=== PATIENT | female | born 1975 | race Caucasian/White ===

== ENCOUNTER 2019-10-29 19:38 | Emergency (ER) | payer MEDICARE, SELFPAY ==
[2019-10-29 19:47] VITALS: BP 129/89; PULSE 100; RESP 24; TEMP 36.8; O2SAT 96; BMI 22.8
--- NOTE | 2019-10-29 19:52 | ECG_ITS ---
[facility] Test Date: 2019-10-29 Pat Name: Jazmín Shaw Department: Room: Gender: Female President & Founder: : 1975 Requested By: Chelsea Chavez Order Number: [id number] Martinez MD: Amrita Law M.D. Measurements Intervals [place] Rate: 80 P: 84 IL: 129 QRS: 90 QRSD: 77 T: 73 QT: 354 QTc: 409 Interpretive Statements SINUS RHYTHM Compared to ECG 12/21/2016 13:46:17 No significant changes Electronically Signed On 10-30-2019 15:38:29 CDT by Amrita Law M.D. [id number]
--- NOTE | 2019-10-29 19:52 | XRR_ITS ---
PROCEDURE INFORMATION: Exam: XR Chest, 1 View Exam date and time: 10/29/2019 8:13 PM Age: 44 years old Clinical indication: Shortness of breath; Patient HX: C/O dyspnea; Wheezing). HX of copd; Emphysema TECHNIQUE: Imaging protocol: XR of the chest Views: 1 view. COMPARISON: CR Chest 2 views* [id number] 10/12/2016 1:08 PM FINDINGS: Lungs: COPD and interstitial prominence. Pleural space: No pleural effusion. Heart/Mediastinum: No cardiomegaly. Bones/joints: Unremarkable. XR/XR chest 1V portable [id number] IMPRESSION: COPD and interstitial prominence.
--- NOTE | 2019-10-29 19:53 | W.ED.SOB ---
HPI - SOB/Dyspnea General: Chief Complaint: Shortness of Breath/Dyspnea Stated Complaint: sob Time Seen by Provider: 10/29/19 19:47 Source: patient Mode of arrival: ambulatory Limitations: no limitations History of Present Illness: HPI Narrative: Jazmín is a nice 44-year-old female who comes in complaining of shortness of breath. She states she has a history of COPD but moved here 7 days ago from [place] and does not have any of her medications. She is also complaining of not having her chronic pain medication. She denies any chest pain. She denies any fevers. Patient states she just cannot quite seem to get her breath and that heat is not helping. She denies any other complaints or concerns but is wanting to help get established here in [place]. Associated symptoms: Deny abdominal pain, chest congestion, chest pain, diaphoresis, dizziness, extremity pain, fever(s), hemoptysis, lightheadedness, nausea, orthopnea, palpitations, syncope or vomiting Review of Systems Const: Denies: fever(s), chills, body aches, fatigue, malaise or diaphoresis Eyes: Denies: change in vision, blurry vision, blind spots, photophobia, eye discharge or eye redness ENMT: Denies: throat pain, odynophagia, hoarseness, swelling of lips/tongue, oral sores, ear or mastoid pain, ear discharge, change in hearing or nasal discharge Card: Denies: chest pain, palpitations, irregular heart rhythm, edema, lightheadedness, syncope, pre-syncope, dyspnea on exertion or orthopnea Resp: Reports: dyspnea and wheezing; Denies: productive cough, non-productive cough, hemoptysis or chest congestion GI: Denies: abdominal pain, nausea, vomiting, hematemesis, coffee ground emesis, heartburn, diarrhea, constipation, GI cramping, hematochezia or melena : Denies: flank pain, dysuria, urinary frequency, urinary urgency or hematuria Musc: Denies: neck pain, back pain, extremity pain, extremity swelling, joint pain, joint swelling, joint redness, joint warmth or joint stiffness Skin/Breast: Denies: rash, pruritus, erythema, skin tenderness or jaundice Neuro: Denies: headache(s), numbness in extremities, weakness in extremities, sensory changes, lack of coordination, difficulty walking, dizziness, vertigo, confusion, Slurred speech present or seizure-like activity Apolinar/Lymph: Denies: easy bruising, easy bleeding, petechiae, purpura or enlarged lymph nodes All/Imm: Denies: urticaria, throat swelling, tongue swelling, facial swelling or acute wheezing PFSH ED PFSH: Medical History (Updated 10/29/19 @ 23:12 by Chelsea Cox) Chronic neck pain COPD (chronic obstructive pulmonary disease) Migraines Social History (Updated 10/29/19 @ 19:53 by Alonzo Cedillo RN) Smoking and tobacco status: current every day smoker cigarettes Physical Exam Const: COMMON NORMALS: no acute distress, patient oriented x3, no limitations, healthy appearing and well nourished GENERAL APPEARANCE: cooperative, well kempt and well developed HENMT: COMMON NORMALS: normocephalic, atraumatic, external ears normal, EAC's normal and Normal external nose present HEAD & SCALP: normal to inspection, normocephalic and atraumatic FACE & SINUS: normal facial exam and face symmetric NOSE: Normal external nose present and Normal nares present EXTERNAL EAR: Yes external ears normal EXTERNAL AUDITORY CANAL: EAC's normal MOUTH: Normal oral and palatal mucosa present, lip normal and tongue normal Eye: COMMON NORMALS: Equal, round and reactive pupils present and conjunctivae normal GENERAL EYE: appearance normal, both eyes and all related structures ALIGNMENT: Yes alignment normal PERIORBITAL: periorbital findings normal EYELID: eyelids normal CONJUNCTIVA: Yes conjunctivae normal SCLERA: sclerae normal PUPIL: Yes Equal, round and reactive pupils present Neck/C-Spine: COMMON NORMALS: full ROM, no lymphadenopathy, supple, no meningeal signs and no JVD GENERAL: Yes normal visual inspection and Yes trachea midline Chest: COMMONS NORMALS: normal inspection of the chest and normal palpation of entire chest wall Resp: COMMON NORMALS: No retractions and No use of accessory muscles EFFORT & INSPECTION: Yes able to speak in complete sentences, Yes symmetric chest movement and Yes tachypneic AUSCULTATION: no crackles, no rales, no rhonchi and wheezes Cardio: COMMON NORMALS: no JVD, regular rate, regular rhythm, S1 normal heart sound present and S2 normal heart sound present RATE: regular rate RHYTHM: regular rhythm HEART SOUNDS: S1 normal heart sound present, S2 normal heart sound present, no click, no gallops, no murmurs, no rubs and abnormal split S2 GI: COMMON NORMALS: Soft to palpation and No hepatosplenomegaly present PALPATION: Yes Soft to palpation, No Tenderness to palpation present (GI), No Guarding due to palpation present (GI), No Rigid due to palpation, Yes No hepatosplenomegaly present, No Hernia present, No Palpable mass present and No Pulsatile mass present : COMMON NORMALS: Yes no CVA tenderness BLADDER/KIDNEY EXAM: Yes no CVA tenderness EXTERNAL FEMALE EXAM: No Hernia present Back/Pelvis: COMMON NORMALS: no CVA tenderness, thoracic and lumbar spine normal to inspection, no thoracic nor lumbar tenderness and thoraco-lumbar ROM normal Extremity: COMMON NORMALS: normal to inspection, full ROM, capillary refill normal, no joint enlargement, no clubbing, cyanosis or edema and no calf tenderness Neuro: COMMON NORMALS: patient oriented x3, CN's II-XII intact bilaterally, moves all extremities, no focal motor deficits and no sensory deficits noted MENINGEAL SIGNS: Yes no meningeal signs SPEECH: speech normal Psych: COMMON NORMALS: mental status grossly normal, Normal thought process present, cooperative, normal affect, speech normal and activity/motor behavior normal APPEARANCE: Yes well kempt SPEECH: Yes normal speech THOUGHT PROCESS: Normal thought process present Skin: COMMON NORMALS: no rashes or lesions noted, turgor normal, no jaundice, no petechiae and no mottling GENERAL SKIN EXAM: no rashes or lesions noted and turgor normal Course Vital Signs: Vital signs: Vital Signs Temperature 98.3 F 10/29/19 19:47 Pulse Rate 79 10/29/19 21:10 Respiratory Rate 22 H 10/29/19 20:55 Blood Pressure 131/92 10/29/19 22:02 Pulse Oximetry 92 10/29/19 22:02 MDM - SOB/Dyspnea MDM Narrative: Medical decision making narrative: The case was reviewed in its entirety with Dr. Rosales. He does not believe the patient qualifies or needs home supplemental oxygen. He recommends treating with steroids, antibiotics and he was happy to see the patient in follow-up. I reviewed this with the patient and she is in agreement. This time there is no sign of respiratory distress and the patient is doing much better and is ready for discharge. I see no sign of acute cardiac abnormality, there is no pneumonia on x-ray there is no sign of pulmonary embolism. Lab Data: Labs: Lab Results 10/29/19 10/29/19 10/29/19 Range/Units 20:17 20:17 20:17 WBC 6.7 (4.0-10.0) 10^3/ uL RBC 4.43 (4.1-5.3) 10^6/u L Hgb 14.4 (11.5-15.3) g/dL Hct 43.7 (37.0-47.0) % MCV 98.6 (81-99) fL MCH 32.5 (28.0-34.0) pg MCHC 33.0 (30.0-36.0) g/dL RDW 13.6 (12.1-15.1) % Plt Count 262 (130-400) 10^3/c mm MPV 10.3 (7.4-10.4) fL Neut % (Auto) 39.7 % Lymph % (Auto) 51.2 % [place] % (Auto) 6.3 % Eos % (Auto) 2.0 % Baso % (Auto) 0.6 % Neut # (Auto) 2.65 (1.8-7.7) 10^3/u L Lymph # (Auto) 3.4 (0.8-4.8) 10^3/u L [place] # (Auto) 0.4 (0.2-0.9) 10^3/u L Eos # (Auto) 0.1 (0.0-0.8) 10^3/u L Baso # (Auto) 0.0 (0.0-0.1) 10^3/u L Nucleated RBC % (a uto) 0 % Nucleated RBCs # 0.0 /100WBC D-Dimer 0.96 H (0-0.59) ug/mIFE U Specimen Type Sample Site ABG pH (7.35-7.45) ABG pCO2 (35-45) mmHg ABG pO2 (80.0-100.0) mmH g ABG HCO3 (22-26) mmol/L ABG Base Excess (-2.0-2.0) mmol/ L Sp Test Hematocrit (37-47) % O2 Delivery Device O2 Liters/Min % Process Steward ID Sodium 136 (136-145) mmol/L Potassium 4.0 (3.5-5.1) mmol/L Chloride 103 (98-107) mmol/L Carbon Dioxide 22 (22-29) mmol/L Anion Gap 15.0 (5-19) BUN 8 (6-20) mg/dL Creatinine 0.7 (0.5-0.9) mg/dL GFR Calculation 90.1 (90-130) mL/min Glucose 104 (65-115) mg/dL Calculated Osmolal ity 278 L (285-295) mOsm/k g Calcium 9.4 (8.5-10.5) mg/dL Magnesium 2.1 (1.7-2.3) mg/dL Total Bilirubin 0.2 (0.15-1.2) mg/dL AST 17 (0-32) U/L ALT 11 (0-33) U/L Alkaline Phosphata se 96 (35-105) IU/L NT-Pro-B Natriuret Pep 57 (0-125) pg/mL Total Protein 7.2 (6.6-8.7) g/dL Albumin 4.5 (3.5-5.2) g/dL Globulin 2.7 (1.3-4.6) g/dL Urine Color (Yellow) Urine Appearance (CLEAR) Urine pH (5-7) Ur Specific Gravit y (1.005-1.030) Urine Protein (Negative) Urine Glucose (UA) (Normal) Urine Ketones (Negative) Urine Blood (Negative) Urine Nitrate (Negative) Urine Bilirubin (NEGATIVE) Urine Urobilinogen (Negative) mg/dL Ur Leukocyte Emelyn ase (Negative) Urine RBC (0-2) /hpf Urine WBC (0-5) /hpf Ur Squamous Epith Cells (0-5) Ur Transition Epit h Cell /hpf Urine Bacteria (NONE) 10/29/19 10/29/19 Range/Units 21:02 21:35 WBC (4.0-10.0) 10^3/ uL RBC (4.1-5.3) 10^6/u L Hgb (11.5-15.3) g/dL Hct (37.0-47.0) % MCV (81-99) fL MCH (28.0-34.0) pg MCHC (30.0-36.0) g/dL RDW (12.1-15.1) % Plt Count (130-400) 10^3/c mm MPV (7.4-10.4) fL Neut % (Auto) % Lymph % (Auto) % [place] % (Auto) % Eos % (Auto) % Baso % (Auto) % Neut # (Auto) (1.8-7.7) 10^3/u L Lymph # (Auto) (0.8-4.8) 10^3/u L [place] # (Auto) (0.2-0.9) 10^3/u L Eos # (Auto) (0.0-0.8) 10^3/u L Baso # (Auto) (0.0-0.1) 10^3/u L Nucleated RBC % (a uto) % Nucleated RBCs # /100WBC D-Dimer (0-0.59) ug/mIFE U Specimen Type Arterial Sample Site Brachial, left ABG pH 7.47 H (7.35-7.45) ABG pCO2 28.2 L (35-45) mmHg ABG pO2 136.0 H (80.0-100.0) mmH g ABG HCO3 20.4 L (22-26) mmol/L ABG Base Excess -2.0 (-2.0-2.0) mmol/ L Sp Test N/a Hematocrit 46.1 (37-47) % O2 Delivery Device Nc O2 Liters/Min 2.0 % Process Steward ID harkr Sodium (136-145) mmol/L Potassium (3.5-5.1) mmol/L Chloride (98-107) mmol/L Carbon Dioxide (22-29) mmol/L Anion Gap (5-19) BUN (6-20) mg/dL Creatinine (0.5-0.9) mg/dL GFR Calculation (90-130) mL/min Glucose (65-115) mg/dL Calculated Osmolal ity (285-295) mOsm/k g Calcium (8.5-10.5) mg/dL Magnesium (1.7-2.3) mg/dL Total Bilirubin (0.15-1.2) mg/dL AST (0-32) U/L ALT (0-33) U/L Alkaline Phosphata se (35-105) IU/L NT-Pro-B Natriuret Pep (0-125) pg/mL Total Protein (6.6-8.7) g/dL Albumin (3.5-5.2) g/dL Globulin (1.3-4.6) g/dL Urine Color Yellow (Yellow) Urine Appearance Clear (CLEAR) Urine pH 7 (5-7) Ur Specific Gravit y 1.010 (1.005-1.030) Urine Protein Neg (Negative) Urine Glucose (UA) Norm (Normal) Urine Ketones Negative (Negative) Urine Blood Neg (Negative) Urine Nitrate Negative (Negative) Urine Bilirubin Neg (NEGATIVE) Urine Urobilinogen Norm (Negative) mg/dL Ur Leukocyte Emelyn ase Negative (Negative) Urine RBC 0-4 H (0-2) /hpf Urine WBC None (0-5) /hpf Ur Squamous Epith Cells 0-4 H (0-5) Ur Transition Epit h Cell None /hpf Urine Bacteria None (NONE) Imaging Data^: CTA Chest: Radiologist's impression: [place] [address] CT Scan Report Signed Patient: Jazmín Shaw Unit #: [id number] : 1975 Age/Sex: 44 / F ADM Date: 10/29/19 Loc: ER Room/Bed: Attending Dr: Ordering Provider/Ordering MD: Chelsea Cox DO Date of Service: 10/29/19 Procedure(s): CT angio chest PE protcl [id number] Accession Number(s): [id number] Report Number: [id number] PROCEDURE INFORMATION: Exam: CT Angiography Chest With Contrast Exam date and time: 10/29/2019 10:27 PM Age: 44 years old Clinical indication: Shortness of breath; Additional info: Positive d-dimer, dyspnea TECHNIQUE: Imaging protocol: Computed tomographic angiography of the chest with intravenous contrast. 3D rendering: MIP and/or 3D reconstructed images were created by the technologist. Radiation optimization: All CT scans at this facility use at least one of these dose optimization techniques: automated exposure control; mA and/or kV adjustment per patient size (includes targeted exams where dose is matched to clinical indication); or iterative reconstruction. Contrast material: OMNI 350; Contrast volume: 78 ml; Contrast route: INTRAVENOUS (IV); COMPARISON: CR XR chest 1V portable [id number] 10/29/2019 8:02 PM RADIATION DOSE METRICS: Total DLP (mGy-cm): 436.91 FINDINGS: Pulmonary arteries: Normal. No pulmonary emboli. Aorta: Unremarkable. No aortic aneurysm. No aortic dissection. Lungs: Severe centrilobular emphysema. No consolidation. Pleural space: Unremarkable. No pneumothorax. No pleural effusion. Heart: Unremarkable. No cardiomegaly. No pericardial effusion. Lymph nodes: Unremarkable. No enlarged lymph nodes. Gallbladder and bile ducts: Cholecystectomy. Bones/joints: Unremarkable. No acute fracture. Soft tissues: Unremarkable. CT/CT angio chest PE protcl [id number] IMPRESSION: 1. No evidence for pulmonary embolus. 2. Severe emphysema. Radiation Dose CTDIVOL = (mGy): DLP = 436.91 (mGy-cm) Dictated By: Leighton Rodrigez Signed By: Leighton Rodrigez Signed Date/Time: 10/29/192299 DD/ 58 EKG Data^: EKG 1: Attestation: I personally reviewed and interpreted this EKG as follows: EKG Interpretation Date: 10/29/19 EKG interpretation time: 20:05 Interpretation: Normal sinus rhythm at 80 beats a minute, no blocks, normal intervals, nonspecific ST-T wave changes. Discharge Plan Discharge Patient Disposition: Home, Self-Care Clinical Impression: Acute exacerbation of chronic obstructive airways disease Condition: Stable Prescriptions: New prednisone 10 mg tablet 20 mg PO BID 5 Days Qty: 20 RF: 0 doxycycline hyclate 100 mg capsule 100 mg PO BID 10 Days Qty: 20 RF: 0 albuterol sulfate 90 mcg/actuation HFA aerosol inhaler 2 inh INHALATION Q4H PRN (Reason: shortness of breath or wheezing) Qty: 6.7 RF: 0 Discharge Orders: Discharge Order (Routine); Ordered 10/29/19 Ordered By: Chelsea Cox Referrals: PIYUSH DE LA ROSA DO [Primary Care Provider] - 1-3 days Sylvia Rosales MD [Physician] - 1-3 days Discharge Diet: Advance as tolerated Discharge Activity: Limit activity as instructed Patient Instructions: Chronic Obstructive Pulmonary Disease (ED) Activity Restrictions/Additional Instructions: Please return to the ER immediately for any of the signs or symptoms listed on your discharge instruction sheets, worsening/changing of your symptoms, you are not getting better as quickly as expected, or for ANY other cause or concerns. Take the medicines as I have prescribed them. Be certain to follow-up with Dr. Rosales for definitive management and further evaluation and care. Discharge Date/Time: 10/29/19 23:50 Coding Level of Care Code ED Project Engineering Manager for Shiv Fwd Exam Comprehensive
[2019-10-29 20:30] LABS: Basophils % 0.6 %; Eosinophils # 0.1 10^3/uL (0.0-0.8); Hematocrit 43.7 % (37.0-47.0); Hemoglobin 14.4 g/dL (11.5-15.3); Lymphocytes # 3.4 10^3/uL (0.8-4.8); Lymphocytes % 51.2 %; Mean Corpuscular Hemoglobin 32.5 pg (28.0-34.0); Mean Corpuscular Volume 98.6 fL (81-99); Mean Platelet Volume 10.3 fL (7.4-10.4); Monocytes # 0.4 10^3/uL (0.2-0.9); Monocytes % 6.3 %; Neutrophils # 2.65 10^3/uL (1.8-7.7); Neutrophils % 39.7 %; Nucleated Red Blood Cells % 0 %; Platelet Count 262 10^3/cmm (130-400); Red Blood Count 4.43 10^6/uL (4.1-5.3); Red Cell Distribution Width 13.6 % (12.1-15.1); White Blood Count 6.7 10^3/uL (4.0-10.0)
[2019-10-29 20:55] VITALS: PULSE 86; RESP 22; O2SAT 93
[2019-10-29] MEDS: ipratropium-albuterol 3 mL Neb 9 ML INHALATION (20:55)
[2019-10-29 20:59] LABS: Alanine Aminotransferase 11 U/L (0-33); Albumin Level 4.5 g/dL (3.5-5.2); Alkaline Phosphatase 96 IU/L (35-105); Aspartate Amino Transferase 17 U/L (0-32); Blood Urea Nitrogen 8 mg/dL (6-20); Calcium 9.4 mg/dL (8.5-10.5); Carbon Dioxide 22 mmol/L (22-29); Chloride 103 mmol/L (98-107); Globulin 2.7 g/dL (1.3-4.6); Glomerular Filtration Rate 90.1 mL/min (90-130); Glucose 104 mg/dL (65-115); Magnesium 2.1 mg/dL (1.7-2.3); NT Pro B Type Natriuretic Pept 57 pg/mL (0-125); Osmolality Calculated 278 mOsm/kg (285-295); Sodium 136 mmol/L (136-145); Total Bilirubin 0.2 mg/dL (0.15-1.2); Total Protein 7.2 g/dL (6.6-8.7)
[2019-10-29 21:10] VITALS: PULSE 79; O2SAT 97
[2019-10-29 21:13] LABS: ABG PCO2 28.2 mmHg (35-45); ABG PH Result 7.47 (7.35-7.45); Arterial Blood Gas Hematocrit 46.1 % (37-47); Blood Gas Sample Site Brachial, left; Blood Gas Sample Type Arterial; HCO3 ABG 20.4 mmol/L (22-26); Oxygen Device NC
[2019-10-29 21:59] LABS: Bilirubin Urine Neg (NEGATIVE); Blood Urine Neg (Negative); Glucose Urine UA Norm (Normal); Ketones Urine Negative (Negative); Leukocyte Esterase Urine Negative (Negative); Nitrate Urine Negative (Negative); Protein Urine Neg (Negative); Urine Appearance Clear (CLEAR); Urine Color Yellow (Yellow); Urobilinogen Urine Norm (Negative); pH Urine 7 (5-7)
[2019-10-29 22:00] LABS: Add Urine Culture? No; RBC Urine 0-4 /hpf (0-2); Squamous Epithelial Cell Urine 0-4 (0-5)
[2019-10-29 22:02] VITALS: BP 131/92; O2SAT 92
[2019-10-29 22:06] LABS: D Dimer 0.96 ug/mIFEU (0-0.59)
--- NOTE | 2019-10-29 22:08 | CTR_ITS ---
PROCEDURE INFORMATION: Exam: CT Angiography Chest With Contrast Exam date and time: 10/29/2019 10:27 PM Age: 44 years old Clinical indication: Shortness of breath; Additional info: Positive d-dimer, dyspnea TECHNIQUE: Imaging protocol: Computed tomographic angiography of the chest with intravenous contrast. 3D rendering: MIP and/or 3D reconstructed images were created by the technologist. Radiation optimization: All CT scans at this facility use at least one of these dose optimization techniques: automated exposure control; mA and/or kV adjustment per patient size (includes targeted exams where dose is matched to clinical indication); or iterative reconstruction. Contrast material: OMNI 350; Contrast volume: 78 ml; Contrast route: INTRAVENOUS (IV); COMPARISON: CR XR chest 1V portable [id number] 10/29/2019 8:02 PM RADIATION DOSE METRICS: Total DLP (mGy-cm): 436.91 FINDINGS: Pulmonary arteries: Normal. No pulmonary emboli. Aorta: Unremarkable. No aortic aneurysm. No aortic dissection. Lungs: Severe centrilobular emphysema. No consolidation. Pleural space: Unremarkable. No pneumothorax. No pleural effusion. Heart: Unremarkable. No cardiomegaly. No pericardial effusion. Lymph nodes: Unremarkable. No enlarged lymph nodes. Gallbladder and bile ducts: Cholecystectomy. Bones/joints: Unremarkable. No acute fracture. Soft tissues: Unremarkable. CT/CT angio chest PE protcl [id number] IMPRESSION: 1. No evidence for pulmonary embolus. 2. Severe emphysema. Radiation Dose CTDIVOL = (mGy): DLP = 436.91 (mGy-cm)
[2019-10-29] MEDS: iohexol 350 mg/mL 100 mL Btl IV (22:37)
--- NOTE | 2019-10-30 09:21 | DCPLANNER ---
credit risk analytics manager had message to schedule a follow up appointment for patient with [facility], Dr. Rosales. credit risk analytics manager called [facility], spoke with Irlanda, gave clinic patients information. credit risk analytics manager was told that patients information would be printed and reviewed. Clinic will call patient with appointment information.
--- NOTE | 2019-10-31 08:16 | DCPLANNER ---
Patient has a follow up appointment scheduled for Sunday, November 05, 2019 at 3:[address] Bird. Clinic will call patient with appointment information.
--- NOTE | 2019-11-06 14:55 | DCPLANNER ---
Patient did not attend appointment scheduled for 11.05.19 with [facility].
== END 2019-10-29 23:50 | disposition home or self-care (01) ==
PROVIDERS: Emergency Provider Emergency Medicine; PCP Internal Medicine
DX: J44.1 Chronic obstructive pulmonary disease with (acute) exacerbation (principal); F17.210 Nicotine dependence, cigarettes, uncomplicated
CPT/HCPCS: 12345; 36415; 36600; 71045; 71275; 80053; 81001; 82803; 83735; 83880; 85025; 85378; 93005; 94640; 96374; 96375; 99283; 99284; J2930; Q9967

== ENCOUNTER 2020-07-14 19:41 | Emergency (ER) | payer MEDICARE, SELFPAY ==
[2020-07-14 20:08] VITALS: BP 169/89; PULSE 110; RESP 16; TEMP 36.7; O2SAT 96; BMI 20.7
--- NOTE | 2020-07-14 20:53 | ED_ITS ---
HPI - General Adult General: Chief complaint: General Medical Stated complaint: PAIN ALL OVER, LLE NUMB Time Seen by Provider: 07/14/20 20:45 Source: patient Mode of arrival: ambulatory Limitations: no limitations History of Present Illness: HPI narrative: 45-year-old female who is recently moved here about a month ago. States she has a history of chronic pain. She states she has had numbness and weakness in her left foot for 20 days. States she is having pain in that foot along with her bilateral hips as well. She states she has chronic headaches as well and has been told before she has a tumor in her head. She denies any worsening or improving factors. She denies any vomiting. She did have a Covid vaccine today and states that it seems to be worse after that as well. Associated symptoms: Reports headache(s); Deny chest pain, dyspnea, nausea, rash or vomiting Review of Systems Const: Reports: body aches; Denies: fever(s), chills or change in appetite Eyes: Denies: blurry vision or eye discomfort ENMT: Denies: throat pain or dental pain Card: Denies: chest pain Resp: Denies: dyspnea GI: Denies: abdominal pain, nausea, vomiting or diarrhea : Denies: dysuria Musc: Reports: extremity pain and joint pain; Denies: neck pain or back pain Skin/Breast: Denies: rash Neuro: Reports: headache(s) Psych: Denies: depression Apolinar/Lymph: Denies: easy bruising All/Imm: Denies: urticaria PFSH ED PFSH: Medical History (Updated 07/14/20 @ 22:29 by Akilah Leija MD) Chronic neck pain COPD (chronic obstructive pulmonary disease) Migraines Social History (Updated 10/29/19 @ 19:53 by Alonzo Cedillo RN) Smoking and tobacco status: current every day smoker cigarettes Physical Exam Const: COMMON NORMALS: no acute distress, patient oriented x3 and healthy appearing HENMT: COMMON NORMALS: normocephalic and atraumatic HEAD & SCALP: normocephalic and atraumatic Eye: COMMON NORMALS: Equal, round and reactive pupils present and EOMs intact bilaterally PUPIL: Yes Equal, round and reactive pupils present Neck/C-Spine: COMMON NORMALS: full ROM and supple Chest: COMMONS NORMALS: normal inspection of the chest and normal palpation of entire chest wall Resp: COMMON NORMALS: normal respiratory effort, No retractions, No use of accessory muscles and clear to auscultation bilaterally AUSCULTATION: clear to auscultation bilaterally Cardio: COMMON NORMALS: regular rate, regular rhythm and No murmurs present (Cardio) RATE: regular rate RHYTHM: regular rhythm GI: COMMON NORMALS: Normal to inspection, nondistended, normoactive bowel sounds present, Soft to palpation, non-tender and no masses PALPATION: Yes Soft to palpation Extremity: COMMON NORMALS: normal to inspection and full ROM Neuro: COMMON NORMALS: patient oriented x3, moves all extremities and no focal motor deficits Psych: COMMON NORMALS: mental status grossly normal, Normal thought process present and cooperative THOUGHT PROCESS: Normal thought process present Skin: COMMON NORMALS: no rashes or lesions noted and no wounds GENERAL SKIN EXAM: no rashes or lesions noted Course Vital Signs: Vital signs: Vital Signs Temperature 98.1 F 07/14/20 20:08 Pulse Rate 110 H 07/14/20 20:08 Respiratory Rate 20 H 07/14/20 21:59 Blood Pressure 169/89 07/14/20 20:08 Pulse Oximetry 100 07/14/20 21:59 MDM - General Adult MDM Narrative: Medical decision making narrative: Jazmín presents here with headache since resolved. Her head CT here is normal. She does have some numbness to her foot that has been going on for months. This is not acute. She has an appointment with a PCP on the will likely need an outpatient MRI. She has no signs of epidural abscess or cauda equina syndrome. She has no back pain here. She is to return if worsening. She understands and agrees to plan. Lab Data: Labs: Lab Results 07/14/20 07/14/20 Range/Units 21:03 21:03 WBC 10.4 H (4.0-10.0) 10^3/ uL RBC 4.62 (4.1-5.3) 10^6/u L Hgb 14.8 (11.5-15.3) g/dL Hct 45.3 (37.0-47.0) % MCV 98.1 (81-99) fL MCH 32.0 (28.0-34.0) pg MCHC 32.7 (30.0-36.0) g/dL RDW 13.5 (12.1-15.1) % Plt Count 293 (130-400) 10^3/c mm MPV 10.1 (7.4-10.4) fL Neut % (Auto) 64.4 % Lymph % (Auto) 28.4 % [place] % (Auto) 5.3 % Eos % (Auto) 1.2 % Baso % (Auto) 0.4 % Neut # (Auto) 6.72 (1.8-7.7) 10^3/u L Lymph # (Auto) 3.0 (0.8-4.8) 10^3/u L [place] # (Auto) 0.6 (0.2-0.9) 10^3/u L Eos # (Auto) 0.1 (0.0-0.8) 10^3/u L Baso # (Auto) 0.0 (0.0-0.1) 10^3/u L Nucleated RBC % (a uto) 0 % Nucleated RBCs # 0.0 /100WBC Sodium 138 (136-145) mmol/L Potassium 4.2 (3.5-5.1) mmol/L Chloride 100 (98-107) mmol/L Carbon Dioxide 27 (22-29) mmol/L Anion Gap 15.2 (5-19) BUN 7 (6-20) mg/dL Creatinine 0.6 (0.5-0.9) mg/dL GFR Calculation 107.2 (90-130) mL/min Glucose 105 (65-115) mg/dL Calculated Osmolal ity 284 L (285-295) mOsm/k g Calcium 8.8 (8.5-10.5) mg/dL Total Bilirubin 0.3 (0.15-1.2) mg/dL AST 21 (0-32) U/L ALT 15 (0-33) U/L Alkaline Phosphata se 113 H (35-105) IU/L Total Protein 7.5 (6.6-8.7) g/dL Albumin 4.6 (3.5-5.2) g/dL Globulin 2.9 (1.3-4.6) g/dL Imaging Data^: CT Head: Radiologist's impression: [address] [address] [address] Scan Report Signed Patient: Jazmín Shaw Unit #: [id number] : 1975 A cct#:[id number] Age/Sex: 45 / F ADM Date: 07/14/20 Loc: ER Room/Bed: Attending Dr: Ordering Provider/Ordering MD: Akilah Leija MD Date of Service: 07/14/20 Procedure(s): CT head wo con* [id number] Accession Number(s): [id number] Report Number: [id number] PROCEDURE INFORMATION: Exam: CT Head Without Contrast Exam date and time: 07/14/2020 9:42 PM Age: 45 years old Clinical indication: Pain; Numbness / parasthesia; Left; Headache; Additional info: CONWAY TECHNIQUE: Imaging protocol: Computed tomography of the head without contrast. Radiation optimization: All CT scans at this facility use at least one of these dose optimization techniques: automated exposure control; mA and/or kV adjustment per patient size (includes targeted exams where dose is matched to clinical indication); or iterative reconstruction. COMPARISON: CT head wo con* [id number] 12/21/2016 2:46 PM RADIATION DOSE METRICS: Total DLP (mGy-cm): 698.17 FINDINGS: Brain: No acute infarct or hemorrhage. Cerebral ventricles: No ventriculomegaly. Bones/joints: There has been a suboccipital craniectomy. Paranasal sinuses: Paranasal sinuses are clear. No air-fluid level. Mastoid air cells: Visualized mastoid air cells are clear. Soft tissues: Unremarkable. CT/CT head wo con* [id number] IMPRESSION: 1. No acute infarct or hemorrhage. 2. Prior occipital craniectomy. Discharge Plan Discharge Patient Disposition: Home Clinical Impression: Numbness of foot Headache Qualifiers: Headache type: unspecified Condition: Stable Prescriptions: No Action albuterol sulfate 90 mcg/actuation HFA aerosol inhaler 2 inh INHALATION Q4H PRN (Reason: shortness of breath or wheezing) Qty: 6.7 RF: 0 lamotrigine 200 mg tablet 200 mg PO BID@799,1999 RF: 0 quetiapine 300 mg tablet 300 mg PO DAILY@2199 RF: 0 citalopram 40 mg tablet 40 mg PO DAILY@2199 RF: 0 tizanidine 4 mg tablet 4 mg PO BID@799,1999 RF: 0 alendronate 70 mg tablet 70 mg PO Q7D RF: 0 dlgcllfzst-jpucrcjeevovg-frcb 50-325-40 mg tablet 1 tab PO Q4H PRN (Reason: Pain) RF: 0 prednisone 50 mg tablet 50 mg PO DAILY@0800 RF: 0 gabapentin 300 mg capsule 300 mg PO TID@0800,1200,1999 RF: 0 albuterol sulfate 90 mcg/actuation HFA aerosol inhaler See Rx Instructions .ROUTE .COMPLEX RF: 0 ondansetron 4 mg tablet,disintegrating 4 mg PO Q8H PRN (Reason: nausea/vomiting) RF: 0 oxycodone 10 mg tablet 10 mg PO Q6H PRN (Reason: Pain) RF: 0 Narcan 4 mg/actuation spray,non-aerosol See Rx Instructions .ROUTE .COMPLEX RF: 0 Discharge Orders: Discharge ED (Routine); Ordered 07/14/20 Ordered By: Akilah Leija Referrals: Ana Rollins, [Primary Care Provider] - Discharge Diet: Advance as tolerated Discharge Activity: Resume usual activity Patient Instructions: Acute Headache (ED), Paresthesia (ED) Coding Level of Care Code ED Title Clerk Automobile for Chg Fwd Exam Comprehensive
[2020-07-14 21:13] LABS: Basophils % 0.4 %; Eosinophils # 0.1 10^3/uL (0.0-0.8); Eosinophils % 1.2 %; Hematocrit 45.3 % (37.0-47.0); Hemoglobin 14.8 g/dL (11.5-15.3); Lymphocytes % 28.4 %; Mean Corpuscular HGB Conc 32.7 g/dL (30.0-36.0); Mean Corpuscular Volume 98.1 fL (81-99); Mean Platelet Volume 10.1 fL (7.4-10.4); Monocytes # 0.6 10^3/uL (0.2-0.9); Monocytes % 5.3 %; Neutrophils # 6.72 10^3/uL (1.8-7.7); Neutrophils % 64.4 %; Nucleated Red Blood Cells % 0 %; Platelet Count 293 10^3/cmm (130-400); Red Blood Count 4.62 10^6/uL (4.1-5.3); Red Cell Distribution Width 13.5 % (12.1-15.1); White Blood Count 10.4 10^3/uL (4.0-10.0)
[2020-07-14 21:30] LABS: Alanine Aminotransferase 15 U/L (0-33); Albumin Level 4.6 g/dL (3.5-5.2); Alkaline Phosphatase 113 IU/L (35-105); Anion Gap 15.2 (5-19); Aspartate Amino Transferase 21 U/L (0-32); Blood Urea Nitrogen 7 mg/dL (6-20); Calcium 8.8 mg/dL (8.5-10.5); Carbon Dioxide 27 mmol/L (22-29); Chloride 100 mmol/L (98-107); Globulin 2.9 g/dL (1.3-4.6); Glomerular Filtration Rate 107.2 mL/min (90-130); Glucose 105 mg/dL (65-115); Osmolality Calculated 284 mOsm/kg (285-295); Potassium 4.2 mmol/L (3.5-5.1); Sodium 138 mmol/L (136-145); Total Bilirubin 0.3 mg/dL (0.15-1.2); Total Protein 7.5 g/dL (6.6-8.7)
--- NOTE | 2020-07-14 21:38 | CTR_ITS ---
PROCEDURE INFORMATION: Exam: CT Head Without Contrast Exam date and time: 07/14/2020 9:42 PM Age: 45 years old Clinical indication: Pain; Numbness / parasthesia; Left; Headache; Additional info: CONWAY TECHNIQUE: Imaging protocol: Computed tomography of the head without contrast. Radiation optimization: All CT scans at this facility use at least one of these dose optimization techniques: automated exposure control; mA and/or kV adjustment per patient size (includes targeted exams where dose is matched to clinical indication); or iterative reconstruction. COMPARISON: CT head wo con* [id number] 12/21/2016 2:46 PM RADIATION DOSE METRICS: Total DLP (mGy-cm): 698.17 FINDINGS: Brain: No acute infarct or hemorrhage. Cerebral ventricles: No ventriculomegaly. Bones/joints: There has been a suboccipital craniectomy. Paranasal sinuses: Paranasal sinuses are clear. No air-fluid level. Mastoid air cells: Visualized mastoid air cells are clear. Soft tissues: Unremarkable. CT/CT head wo con* [id number] IMPRESSION: 1. No acute infarct or hemorrhage. 2. Prior occipital craniectomy. Radiation Dose CTDIVOL = (mGy): DLP = 698.17 (mGy-cm)
[2020-07-14 21:59] VITALS: RESP 20; O2SAT 100
[2020-07-14] MEDS: HYDROmorphone 1 mg/mL INJ 1 mL IVP (21:59)
[2020-07-14] MEDS: ondansetron 2 mg/ML SDV 2 mL 4 MG IVP (22:00)
[2020-07-14] MEDS: dexamethasone 10 mg/mL INJ IVP (23:00)
== END 2020-07-14 23:23 | disposition home or self-care (01) ==
PROVIDERS: Emergency Provider Emergency Medicine; PCP Internal Medicine
DX: R20.0 Anesthesia of skin (principal); R51.9 Headache, unspecified; J44.9 Chronic obstructive pulmonary disease, unspecified; F17.210 Nicotine dependence, cigarettes, uncomplicated
CPT/HCPCS: 70450; 80053; 85025; 96374; 96375; 99283; J1100; J1170; J2405

== ENCOUNTER 2020-07-22 10:58 | Outpatient (CLI) | payer MEDICARE, SELFPAY ==
[2020-07-23 15:53] LABS: Alpha 1 Antitrypsin 182 mg/dL (83-199)
== END 2020-07-22 10:59 | disposition home or self-care (01) ==
PROVIDERS: PCP Internal Medicine; Visit Provider Internal Medicine Pulmonary Disease
DX: J44.9 Chronic obstructive pulmonary disease, unspecified (principal)
CPT/HCPCS: 36415; 82103

== ENCOUNTER 2020-08-02 11:00 | Outpatient (CLI) | payer MEDICARE, SELFPAY | END 2020-08-02 11:01 | disposition home or self-care (01) | LOC: SLEEP 08-03 15:03 | PROVIDERS: PCP Family Medicine; Visit Provider Internal Medicine Pulmonary Disease | DX: G47.34 Idiopathic sleep related nonobstructive alveolar hypoventilation (principal) | CPT/HCPCS: 94762 ==

== ENCOUNTER 2020-08-02 15:11 | Outpatient (CLI) | payer MEDICARE, SELFPAY ==
--- NOTE | 2020-08-02 15:18 | MR_ITS ---
WS: [id number] MRI LUMBAR SPINE NONCONTRAST HISTORY: LOWER EXTREMITY Neuropathy; chronic BACK PAIN COMPARISON: None available. TECHNIQUE: Sagittal and axial multisequence imaging is submitted. Normal lumbar alignment with no compression fractures or marrow edema. Disc spaces and vertebral body heights are well-preserved. Conus terminates normally at L1-2 disc level. L1-L2: Mild annular disc bulge without stenosis. L2-L3: Normal. L3-L4: Mild diffuse annular disc bulging without stenosis. L4-L5: Mild annular disc bulging without stenosis. Mild facet and ligamentum flavum hypertrophy. Ther e is very minimal narrowing of the LEFT subarticular recess and foramen. Mild RIGHT foraminal narrowi ng. L5-S1: Central disc protrusions. There is a lobulated central disc protrusion or 2 separate protrusio ns contacting the ventral thecal sac. Slightly greater contact on the LEFT S1 nerve root without disp lacement. No significant foraminal stenosis. MR/MR lumbar spine wo con* [id number] IMPRESSION: 1. Lobulated or 2 adjacent paracentral disc protrusions at L5-S1. Slightly gre ater on the LEFT contacting the S1 nerve root. 2. Mild bilateral foraminal narrowing at L4-5. Mild LEFT subarticular recess n arrowing.
== END 2020-08-02 15:12 | disposition home or self-care (01) ==
LOC: RADSHAW 15:15
PROVIDERS: PCP Family Medicine; Visit Provider Family Medicine
DX: G57.90 Unspecified mononeuropathy of unspecified lower limb (principal); M54.9 Dorsalgia, unspecified; G89.29 Other chronic pain; M51.27 Other intervertebral disc displacement, lumbosacral region
CPT/HCPCS: 72148

== ENCOUNTER 2020-08-09 08:32 | Outpatient (CLI) | payer MEDICARE, SELFPAY ==
--- NOTE | 2020-08-09 09:57 | PFTS_ITS ---
Date of Study:08/09/20 Date of Dictation: MECHANICS: Forced vital capacity (FVC) is normal. Forced expiratory volume in one second (FEV1) is reduced. FEV1/FVC is reduced. FLOW VOLUME LOOP: Reduced flow at all lung volumes with significant scooping. LUNG VOLUMES: Total lung capacity (TLC) is reduced. Residual volume (RV) is increased. DIFFUSING CAPACITY FOR CARBON MONOXIDE: Moderately reduced. INTERPRETATION: The pulmonary function tests are consistent with moderate airflow obstruction. There is no significant postbronchodilator response. Lung volumes are consistent with hyperinflation and air trapping. Gas exchange (DLCO) is moderately reduced. MTDD
== END 2020-08-09 08:33 | disposition home or self-care (01) ==
LOC: RT 08:35
PROVIDERS: PCP Family Medicine; Visit Provider Internal Medicine Pulmonary Disease
DX: J44.9 Chronic obstructive pulmonary disease, unspecified (principal)
CPT/HCPCS: 94060; 94618; 94726; 94729; J7611

== ENCOUNTER → 2020-08-17 15:29 | Outpatient (BNVA) | payer MEDICARE, SELFPAY | PROVIDERS: PCP Family Medicine; Visit Provider Specialist | DX: R29.898 Other symptoms and signs involving the musculoskeletal system (principal); R20.0 Anesthesia of skin; R20.2 Paresthesia of skin; G57.32 Lesion of lateral popliteal nerve, left lower limb; F17.210 Nicotine dependence, cigarettes, uncomplicated | CPT/HCPCS: 95913 ==

== ENCOUNTER 2020-08-18 20:00 | Outpatient (CLI) | payer MEDICARE, SELFPAY | END 2020-08-18 20:01 | disposition home or self-care (01) | LOC: SLEEP 08-19 08:58 | PROVIDERS: PCP Family Medicine; Visit Provider Internal Medicine Pulmonary Disease | DX: G47.10 Hypersomnia, unspecified (principal) | CPT/HCPCS: 87635; 95810 ==

== ENCOUNTER → 2020-08-27 09:55 | Outpatient (BNVA) | payer MEDICARE, SELFPAY | PROVIDERS: PCP Family Medicine; Visit Provider Surgery | DX: Z01.812 Encounter for preprocedural laboratory examination (principal); Z20.822 Contact with and (suspected) exposure to COVID-19 | CPT/HCPCS: 87635 ==

== ENCOUNTER 2020-08-31 11:53 | Outpatient (RCR) | payer MEDICARE, SELFPAY | END 2020-09-20 23:59 | disposition home or self-care (01) | LOC: SPT 11:53 | PROVIDERS: PCP Family Medicine; Visit Provider Family Medicine | DX: G57.90 Unspecified mononeuropathy of unspecified lower limb (principal) | CPT/HCPCS: 97110; 97116; 97161 ==

== ENCOUNTER 2020-09-04 13:28 | Emergency (ER) | payer MEDICARE, SELFPAY ==
[2020-09-04 13:31] VITALS: BP 130/107; PULSE 90; RESP 18; TEMP 36.5; O2SAT 97; BMI 20.7
[2020-09-04] MEDS: orphenadrine 30 mg/mL Inj 2 mL 60 MG IM (14:04)
[2020-09-04] MEDS: ketorolac 60 mg/2 mL INJ IM (14:05)
--- NOTE | 2020-09-04 14:06 | ED_ITS ---
HPI - General Adult General: Chief complaint: General Medical Stated complaint: ALL OVER PAIN Time Seen by Provider: 09/04/20 13:43 History of Present Illness: HPI narrative: 45-year-old female comes in complaining of generalized pain she states she has chronic pain issues been going on for months she seen the pain clinic is in her back radiating down her left leg seems to be a little worse over the last several days she is supposed to see be seen in the pain clinic early next week. She was unable to get into them prior to that. She is on oxycodone currently. She initially relates lots of pain just everywhere and is very vague it was able to get her to count a focus down to the left upper back medial to the upper portion of the scapula as well as the lumbar spine and the left paraspinal muscles. She is not had any urinary retention or fecal incontinence. She has not had any vomiting or diarrhea no dysuria urgency or frequency denies chest pain or shortness of breath. Onset (ago): week(s) Location: back and lower extremity Severity: severe Quality: stabbing and aching Pain Consistency: constant Relieving factors: rest Exacerbating factors: movement Associated symptoms: Deny chest pain, confusion, cough, diaphoresis, decreased appetite, dyspnea, fevers/chills, headache(s), malaise, nausea, rash, palpitations, seizures, short of breath, syncope, vomiting or weakness Treatments prior to arrival: none Review of Systems Const: Denies: malaise or diaphoresis ENMT: Denies: throat pain, ear or mastoid pain, nasal discharge or nasal congestion Card: Denies: chest pain, palpitations or syncope Resp: Denies: dyspnea GI: Denies: nausea or vomiting : Denies: flank pain, difficulty voiding, dysuria, urinary frequency or urinary urgency Skin/Breast: Denies: rash Neuro: Denies: headache(s) or confusion PFSH ED PFSH: Medical History Chronic neck pain COPD (chronic obstructive pulmonary disease) Migraines Social History Smoking and tobacco status: current every day smoker cigarettes Packs smoked per day: 0.50 Years cigarettes smoked: 30 Quit status (tobacco): considering quitting Second hand smoke exposure: Yes Smoking risk assessment/counseling performed?: Yes Alcohol intake: never Lives independently: Yes Household members: family Housing: Apartment Marital status: Current occupational status: disabled Pets and animals: Yes History of recent travel: No (june 25 2020 moved from [facility]) Current gender identity: Female Physical Exam Const: COMMON NORMALS: no acute distress GENERAL APPEARANCE: cooperative and comfortable ORIENTATION/CONSCIOUSNESS: Yes awake, Yes oriented to person, Yes oriented to place and Yes oriented to time HENMT: COMMON NORMALS: normocephalic, atraumatic and hearing grossly normal bilaterally HEAD & SCALP: normocephalic and atraumatic Neck/C-Spine: COMMON NORMALS: no JVD Lymph: LYMPHATIC: no lymphadenopathy noted and no lymphedema noted Resp: COMMON NORMALS: normal respiratory effort, No retractions, No use of accessory muscles and clear to auscultation bilaterally AUSCULTATION: clear to auscultation bilaterally Cardio: COMMON NORMALS: no JVD, regular rate, regular rhythm and No murmurs present (Cardio) RATE: regular rate RHYTHM: regular rhythm GI: COMMON NORMALS: Soft to palpation and No hepatosplenomegaly present AUSCULTATION: Yes normoactive bowel sounds PALPATION: Yes Soft to palpation, No Tenderness to palpation present (GI), No Guarding due to palpation present (GI) and Yes No hepatosplenomegaly present Extremity: COMMON NORMALS: normal to inspection, capillary refill normal, no clubbing, cyanosis or edema, no calf tenderness and no pedal edema Neuro: SENSORIUM/ORIENTATION: Yes oriented to person, Yes oriented to place and Yes oriented to time Skin: COMMON NORMALS: no rashes or lesions noted GENERAL SKIN EXAM: no rashes or lesions noted Course Vital Signs: Vital signs: Vital Signs Temperature 97.7 F 09/04/20 13:31 Pulse Rate 90 09/04/20 13:31 Respiratory Rate 18 09/04/20 13:31 Blood Pressure 130/107 09/04/20 13:31 Pulse Oximetry 97 09/04/20 13:31 MDM - General Adult MDM Narrative: Medical decision making narrative: Have her increase her gabapentin to 600 3 times daily she has not been taking her steroid we will have her resume that for 50 mg daily for the next 5 days. Additionally she has not been using the tizanidine recommend she uses at every 6 hours as needed Discharge Plan Discharge Patient Disposition: Home Clinical Impression: Chronic neck pain, Chronic back pain Condition: Stable Prescriptions: Changed gabapentin 300 mg capsule 600 mg PO TID@0800,1199,1999 Qty: 0 RF: 0 No Action Stiolto Respimat 2.5-2.5 mcg/actuation mist 2 puff inhalation DAILY RF: 0 promethazine 25 mg tablet 25 mg PO Q6H PRN (Reason: Nausea) RF: 0 ciprofloxacin HCl [Cipro] 500 mg tablet 500 mg PO DAILY PRN (Reason: Shortness Of Breath) RF: 0 scopolamine base 1 mg over 3 days patch 3 day 1 patch transdermal Q3D PRN (Reason: nausea and vomiting) Qty: 2 RF: 1 lamotrigine 200 mg tablet 200 mg PO BID@799,1999 RF: 0 quetiapine 300 mg tablet 300 mg PO DAILY@2200 RF: 0 citalopram 40 mg tablet 40 mg PO DAILY@2199 RF: 0 tizanidine [Zanaflex] 4 mg tablet 4 mg PO BID@799,1999 RF: 0 alendronate [Fosamax] 70 mg tablet 70 mg PO Q7D RF: 0 cgdgpgaius-zyvheuoymxzqe-egjh 50-325-40 mg tablet 1 tab PO Q4H PRN (Reason: Pain) RF: 0 prednisone 50 mg tablet 50 mg PO DAILY@0800 RF: 0 albuterol sulfate 90 mcg/actuation HFA aerosol inhaler See Rx Instructions .ROUTE .COMPLEX RF: 0 oxycodone 10 mg tablet 10 mg PO PRN PRN (Reason: Back Pain) RF: 0 Discharge Orders: Discharge ED (Routine); Ordered 09/04/20 Ordered By: Ja Cutler Referrals: Chandrakant Cao MD [Primary Care Provider] - Discharge Diet: Usual diet Discharge Activity: Increase activity as tolerated Patient Instructions: Opioid Safety Activity Restrictions/Additional Instructions: Follow-up with pain management as soon as you are able continue previously prescribed medications with the increase the gabapentin to 600 mg 3 times daily Coding Level of Care Code ED Microfiche Duplicator for Shiv Trevizo
== END 2020-09-04 15:01 | disposition home or self-care (01) ==
PROVIDERS: Emergency Provider Family Medicine; PCP Family Medicine
DX: G89.29 Other chronic pain (principal); M54.2 Cervicalgia; M54.9 Dorsalgia, unspecified; J44.9 Chronic obstructive pulmonary disease, unspecified; F17.210 Nicotine dependence, cigarettes, uncomplicated
CPT/HCPCS: 96372; 99283; J1885; J2360

== ENCOUNTER → 2020-09-09 14:42 | Outpatient (BNVA) | payer MEDICARE, SELFPAY | PROVIDERS: PCP Family Medicine; Visit Provider Psychiatry & Neurology Psychiatry | DX: F41.1 Generalized anxiety disorder (principal); F40.10 Social phobia, unspecified; F33.2 Major depressive disorder, recurrent severe without psychotic features; F17.200 Nicotine dependence, unspecified, uncomplicated | CPT/HCPCS: 99204 ==

== ENCOUNTER → 2020-10-01 12:07 | Outpatient (BNVA) | payer MEDICARE, SELFPAY | PROVIDERS: PCP Family Medicine; Visit Provider Surgery | DX: Z86.010 Personal history of colon polyps (principal); Z20.822 Contact with and (suspected) exposure to COVID-19 | CPT/HCPCS: 87635 ==

== ENCOUNTER 2020-10-05 07:23 | Day surgery (SDC) | payer MEDICARE, SELFPAY ==
[2020-10-01 13:39] VITALS: BMI 21.7
[2020-10-05 07:37] VITALS: BP 125/104; PULSE 122; RESP 18; TEMP 36.5; O2SAT 97
[2020-10-05] MEDS: sodium chloride 0.9% 1,000 ML 30 ML IV (08:02)
--- NOTE | 2020-10-05 08:38 | P.ANESASSM_ITS ---
Pre-Anesthetic Assessment Pre-Anesthetic Assessment: Height/Weight: Height 1.55 m Weight 52.163 kg Temp Pulse Resp BP Pulse Ox 97.7 F 122 H 18 125/104 97 10/05/20 07:37 10/05/20 07:37 10/05/20 07:37 10/05/20 07:37 10/05/20 07:37 Preop Diagnosis: Colon polyps history, bleeding per rectum Proposed Procedure: Operation Date: 10/05/20 08:30 Proposed Procedures p Colonoscopy 20905 z86.010(Not Applicable) - Marshal Dee MD Was Beta Thomas taken within 24 hours: N/A Was Clonidine taken within 24 hours: N/A Last intake: Intake Last Liquid Date 10/04/20 Last Solid Date 10/03/20 Social: Social History: Tobacco and No alcohol Exam: Pre-Anes Outpt Exam: alert, oriented x 3 and regular rate & rhythm Airway: Submandibular: WNL Cervical ROM: WNL MP: 2 Dentition: Partials Pulmonary: Pulmonary: COPD Musc/skel: Musc/skel: OA/DJD Comments: chronic pain/opioid Neuropsych: Neuropsych: Anxiety, Depression and CONWAY Anesthetic Plan: ASA status: 3 Anesthesia: MAC Risk of > 500 ml blood loss (7ml/kg in children): No Meds/Allergies Current Medications: Current Medications Generic Name Dose Route Start Last Admin Trade Name Freq PRN Reason Stop Dose Admin Sodium Chloride 1,000 mls @ 30 ml s/hr 10/05/20 07:45 10/05/20 08:02 Sodium Chloride 0.9% IV 10/06/20 07:44 30 mls/hr .Q24H REGGIE Administration PFSH Anesthesia PFSH: Medical History Chronic neck pain COPD (chronic obstructive pulmonary disease) Migraines Social History (Updated 09/09/20 @ 15:03 by Jersey Bradshaw LPN) Smoking and tobacco status: current every day smoker cigarettes Packs smoked per day: 0.50 Years cigarettes smoked: 30 Quit status (tobacco): considering quitting Second hand smoke exposure: Yes Smoking risk assessment/counseling performed?: Yes Alcohol intake: never Lives independently: Yes Household members: family Housing: Apartment Marital status: Current occupational status: disabled Pets and animals: Yes History of recent travel: No (june 25 2020 moved from [facility]) Current gender identity: Female Data Anesthesia Cardiac Studies: No Data to Display
--- NOTE | 2020-10-05 09:25 | W.PM.OPSFHP ---
Same Day Surgery H&P Indication for Procedure/HPI DATE OF PROCEDURE: October 05, 2020 CHIEF COMPLAINT/INDICATIONFOR SURGICAL PROCEDURE: COLON POLYPS PREOP DIAGNOSIS: Colon polyps history, bleeding per rectum PLANNED PROCEDRUE: Operation Date: 10/05/20 08:30 Proposed Procedures p Colonoscopy 79526 z86.010(Not Applicable) - Marshal Dee MD This is a pleasant 45 years old female patient presents to my practice with history of colon polyps about 3 years ago back in [place] and they were removed, patient reports intermittent bleeding per rectum and she has been losing and gaining weight about 5 pounds range. Patient reports that she has a cousin developed colon cancer at age of 55. Interim history 10/05/2020 Patient comes today for surveillance colonoscopy with history of colon polyps and also gives family history of colon cancer ROS All systems have been reviewed negative except as per the above or per problem list Medications/Allergies* Home Medications Medication Instructions Recorded Confirmed Type albuterol sulfate See Rx Instructions .ROUTE .COMPLEX 07/14/20 10/05/20 History alendronate [Fosamax] 70 mg PO Q7D 07/14/20 10/05/20 History prednisone 50 mg PO DAILY@0800 07/14/20 10/05/20 History promethazine 25 mg tablet 25 mg PO Q6H PRN 07/21/20 10/05/20 History tiotropium 2.5 mcg-olodaterol 2.5 2 puff INHALATION DAILY 08/30/20 10/05/20 History mcg/actuation mist for inhalation footiamttw-syajljzrmtkjo-myxmojxc 2 tab PO Q4H PRN tab 09/09/20 10/05/20 History 50 mg-325 mg-40 mg tablet oxycodone 10 mg tablet 10 mg PO QID PRN tab 09/09/20 10/05/20 History clomipramine 50 mg PO DAILY 10/01/20 10/05/20 History Allergies/Adverse Reactions Allergy/AdvReac Type Severity Reaction Status Date / Time sumatriptan [From Imitrex] Allergy Intermediate ALGY-Hives Verified 10/05/20 09:26 Current Medications: Generic Name Dose Route Start Last Admin Trade Name Freq PRN Reason Stop Dose Admin Sodium Chloride 1,000 mls @ 30 mls/hr 10/05/20 07:45 10/05/20 08:02 Sodium Chloride 0.9% IV 10/06/20 07:44 30 mls/hr .Q24H REGGIE Administration Pertinent History/Comorbid Conditions* Medical History (Updated 09/12/20 @ 00:01 by ) Chronic neck pain COPD (chronic obstructive pulmonary disease) Migraines Social History Smoking and tobacco status: current every day smoker cigarettes Packs smoked per day: 0.50 Years cigarettes smoked: 30 Quit status (tobacco): considering quitting Second hand smoke exposure: Yes Smoking risk assessment/counseling performed?: Yes Alcohol intake: never Lives independently: Yes Household members: family Housing: Apartment Marital status: Current occupational status: disabled Pets and animals: Yes History of recent travel: No (june 25 2020 moved from [facility]) Current gender identity: Female Pertinent Exam Findings alert, oriented x 3, clear to auscultation bilaterally, regular rate & rhythm and operative site marked (ABDOMEN NT ND SOFT) Recommendations Surgery/Procedure today (Colonoscopy with possible biopsy) Other Plans: Plan of care; After thorough history and physical examination and reviewing the chart, plan to perform surveillance colonoscopy. I discussed with the patient in details the risks,benefits,alternatives and indications.The risk of aspiration, bleeding, soft tissue injury, perforation of the colon and other potential concomitant complications were explained to the patient in details,also the potential need for Laproscoy/Laparotomy to repair any related complications including but not limited to colectomy and or Closotomy.The patient understood this well and did agree to proceed. Rationale was carefully and clearly discussed with the patient.Appropriate informed consent have been reviewed and signed All questions have been answered and all concerns have been addressed to patient's satisfaction. Verbal and written Instructions were given to the patient for colonoscopy prep Coding Level of Care Code Acute Speech Scientist for Shiv Trevizo
[2020-10-05 09:57] VITALS: BP 97/61; PULSE 87; RESP 16; TEMP 36.4; O2SAT 99
[2020-10-05 10:08] VITALS: BP 110/78; PULSE 92; RESP 18; TEMP 36.3; O2SAT 97
--- NOTE | 2020-10-05 10:19 | ANE.PACU2 ---
Documented by User: Shaun Sun Jr, CRNA 10/05/20 10:20 Inpatient post-anesthesia follow up: Airway intact: Yes Vital signs: Temperature 97.3 F Pulse Rate 92 Respiratory Rate 18 Blood Pressure 110/78 Pulse Oximetry 97 Oxygen Delivery Me thod Room Air Oxygen Flow Rate Fraction of Inspir ed Oxygen Hydration adequate: Yes Nausea and vomiting: No Pain level: 1 Mental status: Baseline
== END 2020-10-05 10:22 | disposition home or self-care (01) ==
PROVIDERS: PCP Family Medicine; Visit Provider Surgery
PROC: 0DJD8ZZ Inspection of Lower Intestinal Tract, Via Natural or Artificial Opening Endoscopic (ICD-10-PCS; CPT 45378; principal; 2020-10-05 08:30)
DX: K62.5 Hemorrhage of anus and rectum (principal); Z86.010 Personal history of colon polyps; Z80.0 Family history of malignant neoplasm of digestive organs; J44.9 Chronic obstructive pulmonary disease, unspecified; Z12.11 Encounter for screening for malignant neoplasm of colon; M19.90 Unspecified osteoarthritis, unspecified site
CPT/HCPCS: 45378; 96360; 96361; J2704; J7030

== ENCOUNTER 2020-10-05 21:15 | Emergency (ER) | payer MEDICARE, SELFPAY ==
[2020-10-05 21:38] VITALS: BP 118/78; PULSE 106; RESP 18; TEMP 36.8; O2SAT 96; BMI 21.7
[2020-10-05 22:15] VITALS: BP 132/74; PULSE 111; RESP 24; O2SAT 96
--- NOTE | 2020-10-05 22:29 | ED_ITS ---
HPI - General Adult General: Chief complaint: Nausea/Vomiting/Diarrhea Stated complaint: body numbness Time Seen by Provider: 10/05/20 21:47 History of Present Illness: HPI narrative: This patient is a 45-year-old female who presents to the emergency department plaint of numbness and tingling to her body. Patient has had nerve conduction studies with her PCP and has been going on for several months. Patient also recently had colonoscopy today patient has been seen multiple times in the emergency department for chronic pain issues. Patient is nonspecific but appears to be anxious. Patient does have a long history of anxiety and states that hydroxyzine does not work. Patient denies taking any other medications. Denies any medical problems however according to medical records the patient has issues with chronic back pain and nerve conduction issues questionable COPD takes albuterol. Takes depression medications. Patient states that she has had issues with anxiety for some time. Patient does not describe any type of neuropathy pain even though she is having medical evaluation as an outpatient for the same. Patient also had a colonoscopy today and is awaiting those results. Patient's complaints are nonspecific and already under the care of Dr. Damon in her PCP. We did discuss at length with patient about options and she is agreeable to have medication given to her to help with anxiety. Patient be given Zyprexa 10 mg and will do a urine drug screen on the patient. This patient does not appear to have any acute findings. Patient initially checked here and stated nausea vomiting diarrhea however during history and physical the patient denies any nausea vomiting diarrhea patient states she took medications to clear out her colon laxatives had tunafish and has ate and drank this afternoon and has had no vomiting. Will do medical evaluation treat as needed. Patient also concerned for possible withdrawal. Onset (ago): week(s) Associated symptoms: Deny chest pain, dyspnea, headache(s), nausea, rash, palpitations or vomiting Review of Systems General: Reports: 10 or more systems reviewed and unremarkable except in HPI and below Const: Denies: fever(s), chills, body aches or fatigue Eyes: Denies: change in vision or blurry vision ENMT: Denies: throat pain, hoarseness or mouth pain Card: Denies: chest pain, palpitations, irregular heart rhythm, edema, swelling of feet/ankles or lightheadedness Resp: Denies: dyspnea, productive cough, non-productive cough, wheezing or pain on inspiration GI: Denies: abdominal pain, nausea or vomiting : Denies: flank pain, difficulty voiding, dysuria, urinary frequency, urinary urgency or urinary hesitancy Musc: Denies: neck pain, back pain, extremity pain, extremity swelling, joint pain, joint swelling, joint redness, joint warmth or limited range of motion Skin/Breast: Denies: rash, pruritus, erythema or skin tenderness Neuro: Reports: numbness in extremities; Denies: headache(s) or weakness in extremities Psych: Denies: anxiety or depression PFSH ED PFSH: Medical History Chronic neck pain COPD (chronic obstructive pulmonary disease) Migraines Social History Smoking and tobacco status: current every day smoker cigarettes Packs smoked per day: 0.50 Years cigarettes smoked: 30 Quit status (tobacco): considering quitting Second hand smoke exposure: Yes Smoking risk assessment/counseling performed?: Yes Alcohol intake: never Lives independently: Yes Household members: family Housing: Apartment Marital status: Current occupational status: disabled Pets and animals: Yes History of recent travel: No (june 25 2020 moved from [facility]) Current gender identity: Female Physical Exam Const: COMMON NORMALS: no acute distress, average body habitus, patient oriented x3, no limitations, healthy appearing, alert and well nourished HENMT: COMMON NORMALS: normocephalic, atraumatic, hearing grossly normal bilaterally, external ears normal, EAC's normal, TM's normal bilaterally, Normal external nose present, Normal nasal mucous membranes and turbinates present, moist oral mucous membranes, oropharynx normal, dentition normal and gingiva normal HEAD & SCALP: normocephalic and atraumatic NOSE: Normal external nose present and Normal nasal mucous membranes and turbinates present EXTERNAL EAR: Yes external ears normal EXTERNAL AUDITORY CANAL: EAC's normal TYMPANIC MEMBRANE: TM's normal bilaterally Neck/C-Spine: COMMON NORMALS: full ROM, no lymphadenopathy, supple, no meningeal signs, no JVD, Thyroid normal and No carotid bruits THYROID: Thyroid normal Chest: COMMONS NORMALS: normal inspection of the chest, normal palpation of entire chest wall, normal inspection of the breasts and normal palpation of the breasts Breast/axilla inspection: Yes normal inspection of the breasts BREAST/AXILLA PALPATION: Yes normal palpation of the breasts Resp: COMMON NORMALS: normal respiratory effort, No retractions, No use of accessory muscles, clear to auscultation bilaterally and percussion normal AUSCULTATION: clear to auscultation bilaterally PERCUSSION: percussion normal Cardio: COMMON NORMALS: no JVD, regular rate, regular rhythm, S1 normal heart sound present, S2 normal heart sound present, No gallops present (Cardio), No clicks present (Cardio), No murmurs present (Cardio), No rub (Cardio) and Peripheral pulses 2+ throughout RATE: regular rate RHYTHM: regular rhythm HEART SOUNDS: S1 normal heart sound present and S2 normal heart sound present PERIPHERAL PULSES: Peripheral pulses 2+ throughout GI: COMMON NORMALS: Normal to inspection, nondistended, normoactive bowel sounds present, Soft to palpation, non-tender, No hepatosplenomegaly present, no masses and no bruits PALPATION: Yes Soft to palpation and Yes No hep atosplenomegaly present : COMMON NORMALS: Yes no CVA tenderness, Yes normal external appearance, Yes normal appearance of the vagina, Yes normal appearance of the cervix, Yes normal bimanual exam, Yes No adnexal tenderness and Yes no masses BLADDER/KIDNEY EXAM: Yes no CVA tenderness BIMANUAL EXAM - VAGINA & UTERUS: Yes normal bimanual exam Back/Pelvis: COMMON NORMALS: no CVA tenderness, thoracic and lumbar spine norm al to inspection, no thoracic nor lumbar tenderness, thoraco-lumbar ROM normal and straight leg raise negative bilaterally Extremity: COMMON NORMALS: normal to inspection, full ROM, capillary refill normal, no joint enlargement, no clubbing, cyanosis or edema, no calf tenderness and no pedal edema Neuro: COMMON NORMALS: patient oriented x3 SENSORIUM/ORIENTATION: Yes alert MENINGEAL SIGNS: Yes no meningeal signs Psych: ACTIVITY/MOTOR BEHAVIOR: Yes fidgeting Course 2 Reevaluation(s): Reevaluation #1: After leaving the patient nursing staff went into the room to obtain a urine for urine drug screen has stated to the patient. Prior to medications being given for anxiety. Patient and her friend member in the room have eloped did not give a reason why. Patient knew that she was on to get urine drug screen denied taking any medications however medical records show the patient had numerous visits and previously been on oxycodone. I did have concerns of possible drug-seeking behavior. Patient has been evaluated by Dr. Damon and her PCP has had multiple outpatient visits also. Patient was instructed to continue to follow-up with her PCP as an outpatient and specialist. Patient should follow-up with her primary care physician. Do not believe the patient had an emergent complaint in the emergency department but she was offered medical screening exam. And it was offered medications to help with anxiety but patient chose to leave the emergency department. Time: 22:49 Vital Signs: Vital signs: Vital Signs Temperature 98.2 F 10/05/20 21:38 Pulse Rate 111 H 10/05/20 22:15 Respiratory Rate 24 H 10/05/20 22:15 Blood Pressure 132/74 10/05/20 22:15 Pulse Oximetry 96 10/05/20 22:15 Discharge Plan Discharge Patient Disposition: Left Against Medical Advice Clinical Impression: Eloped from emergency department, Anxiety, Drug-seeking behavior Condition: Stable Prescriptions: No Action Stiolto Respimat 2.5-2.5 mcg/actuation mist 2 puff inhalation DAILY RF: 0 citalopram 40 mg tablet 40 mg PO DAILY@2200 Qty: 30 RF: 2 clomipramine 50 mg capsule 50 mg PO .HS Qty: 30 RF: 2 promethazine 25 mg tablet 25 mg PO Q6H PRN (Reason: Nausea) RF: 0 lactulose 10 gram/15 mL (15 mL) solution 15 ml PO TID 7 Days Qty: 315 RF: 0 lamotrigine 200 mg tablet 200 mg PO BID Qty: 60 RF: 2 alendronate [Fosamax] 70 mg tablet 70 mg PO Q7D RF: 0 prednisone 50 mg tablet 50 mg PO DAILY@0800 RF: 0 albuterol sulfate 90 mcg/actuation HFA aerosol inhaler See Rx Instructions .ROUTE .COMPLEX RF: 0 hkqhjobesg-zhwizpgbaspub-jbxf 50-325-40 mg tablet 2 tab PO Q4H PRN (Reason: Pain) RF: 0 oxycodone 10 mg tablet 10 mg PO QID PRN (Reason: Back Pain) RF: 0 clomipramine 50 mg capsule 50 mg PO DAILY RF: 0 Referrals: Chandrakant Cao MD [Primary Care Provider] - Coding Level of Care Code ED [employer] for [employer]g Fwd Exam Comprehensive
--- NOTE | 2020-10-05 22:40 | PC.NURSE ---
while in waiting room bringing another patient back to a room passed patient and family member leaving facility. Asked if I could help or if they had been discharged by the physician and both parties wound not answer this nurses questions and left facility. Dr. Lewis notified.
== END 2020-10-05 23:20 | disposition left against medical advice (07) ==
PROVIDERS: Emergency Provider Emergency Medicine; PCP Family Medicine
DX: F41.9 Anxiety disorder, unspecified (principal); Z76.5 Malingerer [conscious simulation]; Z53.21 Procedure and treatment not carried out due to patient leaving prior to being seen by health care provider; J44.9 Chronic obstructive pulmonary disease, unspecified; F17.210 Nicotine dependence, cigarettes, uncomplicated

== ENCOUNTER → 2020-10-11 10:19 | Outpatient (BNVA) | payer MEDICARE, SELFPAY | PROVIDERS: PCP Family Medicine; Visit Provider Nurse Practitioner | DX: F41.1 Generalized anxiety disorder (principal); F33.2 Major depressive disorder, recurrent severe without psychotic features | CPT/HCPCS: 99214 ==

== ENCOUNTER → 2020-11-09 15:33 | Outpatient (BNVA) | payer MEDICARE, SELFPAY | PROVIDERS: PCP Family Medicine; Visit Provider Psychiatry & Neurology Psychiatry | DX: F33.2 Major depressive disorder, recurrent severe without psychotic features (principal); F40.10 Social phobia, unspecified; F41.1 Generalized anxiety disorder; F17.200 Nicotine dependence, unspecified, uncomplicated | CPT/HCPCS: 99214 ==

== ENCOUNTER → 2020-11-26 14:39 | Outpatient (BNVA) | payer MEDICARE, SELFPAY | PROVIDERS: PCP Family Medicine; Visit Provider Psychiatry & Neurology Psychiatry | DX: F33.2 Major depressive disorder, recurrent severe without psychotic features (principal); F40.10 Social phobia, unspecified; F41.1 Generalized anxiety disorder; F17.200 Nicotine dependence, unspecified, uncomplicated | CPT/HCPCS: 99214 ==

== ENCOUNTER 2020-11-30 08:29 | Emergency (ER) | payer MEDICARE, SELFPAY ==
[2020-11-30 08:33] VITALS: BP 150/86; PULSE 111; RESP 18; TEMP 37; O2SAT 94; BMI 21.7
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
[2020-11-30 08:41] VITALS: BP 150/86; PULSE 102; RESP 18; O2SAT 96
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
[2020-11-30] MEDS: HYDROcodone-acetaminophen 5-325 mg Tablet 1 TAB PO (08:55)
[2020-11-30] MEDS: cyclobenzaprine 10 mg Tablet PO (08:55)
[2020-11-30 10:21] VITALS: BP 138/93; PULSE 94; RESP 18; O2SAT 94
[2020-11-30 11:31] VITALS: BP 138/83; PULSE 86; RESP 18; O2SAT 94
--- NOTE | 2020-12-01 09:23 | DCPLANNER ---
Addendum entered by Maria Elena Torrez 12/07/20 10:30: chemistry manager called the ortho clinic, to confirm that clinic received patients information. chemistry manager was told that they did receive patients information, but could not reach patient due to phone number no longer in service. Clinic will send patient a letter having patient to contact clinic to schedule an appointment. Original Note: chemistry manager was asked to refer patient to a hand specialist at [facility] in [place]. chemistry manager called the [facility] in [place], and faxed patients information to the clinic. The clinic will call patient with the appointment information.
== END 2020-11-30 11:40 | disposition home or self-care (01) ==
PROVIDERS: Emergency Provider Nurse Practitioner Family; PCP Family Medicine
DX: S62.002A Unspecified fracture of navicular [scaphoid] bone of left wrist, initial encounter for closed fracture (principal); S52.515A Nondisplaced fracture of left radial styloid process, initial encounter for closed fracture; S40.012A Contusion of left shoulder, initial encounter; S00.03XA Contusion of scalp, initial encounter; M54.2 Cervicalgia; J44.9 Chronic obstructive pulmonary disease, unspecified; F17.210 Nicotine dependence, cigarettes, uncomplicated; V89.2XXA Person injured in unspecified motor-vehicle accident, traffic, initial encounter; Y92.411 Interstate highway as the place of occurrence of the external cause
CPT/HCPCS: 70450; 71045; 72125; 73030; 73110; 99283

== ENCOUNTER 2020-12-13 09:02 | Outpatient (CLI) | payer MEDICARE, SELFPAY ==
--- NOTE | 2020-12-13 09:07 | XR_ITS ---
WS: [id number] LEFT WRIST: 3 VIEW(S) TECHNIQUE: PA, oblique and lateral. HISTORY: PAIN IN RIGHT WRIST, FX LEFT RADIAL STYLOID PROCESS/navicular COMPARISON: 11/30/2020 Nondisplaced fracture through the radial styloid. Minimally displaced fracture of the distal scaphoid displaced by less than 3 mm. No change in orientation. No joint space abnormality. No soft tissue swelling. XR/XR wrist LT min 3V* [id number] IMPRESSION: 1. Nondisplaced radial styloid fracture. 2. Minimal displaced distal scaphoid fracture, similar to 11/30/2020. No signif icant healing.
--- NOTE | 2020-12-13 09:07 | XR_ITS ---
WS: [id number] RIGHT WRIST: 3 VIEW(S) TECHNIQUE: PA, oblique and lateral. HISTORY: PAIN IN RIGHT WRIST, FX LEFT RADIAL STYLOID PROCESS/navicular COMPARISON: 12/21/2016 The hook of the hamate has changed position since the prior hand radiograph from 2017. Hook of the kim mate extends inferiorly over the proximal fourth metacarpal. There is mild overlapping of the hamate and the proximal fourth metacarpal. There could be a fracture at the base of the hamate. No joint space abnormality. There is a mild soft tissue swelling along the medial 6 aspect of the hand. XR/XR wrist RT min 3V* [id number] IMPRESSION: 1. Abnormal orientation of the hamate, hook of the hamate and the fourth metac arpal. Fracture and/or dislocation should be considered. Different orientation between the bones and joints as compared to 12/21/2016. Recommend follow-up CT R IGHT wrist to evaluate for dislocation or fracture. 2. Mild soft tissue edema around the medial wrist.
== END 2020-12-13 09:03 | disposition home or self-care (01) ==
PROVIDERS: PCP Family Medicine; Visit Provider Family Medicine
DX: M25.531 Pain in right wrist (principal); S52.515A Nondisplaced fracture of left radial styloid process, initial encounter for closed fracture; S62.002A Unspecified fracture of navicular [scaphoid] bone of left wrist, initial encounter for closed fracture; X58.XXXA Exposure to other specified factors, initial encounter; R60.0 Localized edema
CPT/HCPCS: 73110

== ENCOUNTER → 2020-12-24 12:54 | Outpatient (BNVA) | payer MEDICARE, SELFPAY | PROVIDERS: PCP Family Medicine; Visit Provider Psychiatry & Neurology Psychiatry | DX: F33.2 Major depressive disorder, recurrent severe without psychotic features (principal); F40.10 Social phobia, unspecified; F41.1 Generalized anxiety disorder; F17.200 Nicotine dependence, unspecified, uncomplicated | CPT/HCPCS: 99214 ==

== ENCOUNTER → 2021-04-19 09:45 | Outpatient (BNVA) | payer MEDICARE, SELFPAY | PROVIDERS: PCP Family Medicine Adult Medicine; Visit Provider Orthopaedic Surgery | DX: S62.025G Nondisplaced fracture of middle third of navicular [scaphoid] bone of left wrist, subsequent encounter for fracture with delayed healing (principal); X58.XXXD Exposure to other specified factors, subsequent encounter; Z46.89 Encounter for fitting and adjustment of other specified devices; S62.015K Nondisplaced fracture of distal pole of navicular [scaphoid] bone of left wrist, subsequent encounter for fracture with nonunion | CPT/HCPCS: 73110; 97760; L3809 ==

== ENCOUNTER 2021-04-19 13:15 | Outpatient (CLI) | payer MEDICARE, SELFPAY | END 2021-04-19 13:16 | disposition home or self-care (01) | LOC: SPT 13:30 | PROVIDERS: PCP Family Medicine Adult Medicine; Visit Provider Orthopaedic Surgery | DX: Z46.89 Encounter for fitting and adjustment of other specified devices (principal); S62.015K Nondisplaced fracture of distal pole of navicular [scaphoid] bone of left wrist, subsequent encounter for fracture with nonunion; X58.XXXD Exposure to other specified factors, subsequent encounter | CPT/HCPCS: 97760; L3809 ==

== ENCOUNTER 2021-04-23 13:06 | Observation (INO) | payer MEDICARE, SELFPAY ==
[2021-04-23 13:20] VITALS: BP 142/71; PULSE 91; RESP 18; TEMP 36.9; O2SAT 92
--- NOTE | 2021-04-23 13:34 | XRR_ITS ---
PROCEDURE INFORMATION: Exam: XR Chest Exam date and time: 04/23/2021 1:34 PM Age: 45 years old Clinical indication: Cough; Additional info: Dyspnea/cough TECHNIQUE: Imaging protocol: XR of the chest. Views: 1 view. COMPARISON: CR XR chest 1V portable [id number] 11/30/2020 8:52 AM FINDINGS: Lungs: Hyperinflation. No CHF or focal consolidation. Pleural spaces: Unremarkable. No pleural effusion. No pneumothorax. Heart/Mediastinum: Unremarkable. No cardiomegaly. Bones/joints: No acute findings. XR/XR chest 1V portable [id number] IMPRESSION: No acute findings.
--- NOTE | 2021-04-23 13:34 | W.ED.SOB ---
HPI - SOB/Dyspnea General: Chief Complaint: Shortness of Breath/Dyspnea Stated Complaint: LOW O2/NOT COVID RELATED: 71%-85% Time Seen by Provider: 04/23/21 13:26 History of Present Illness: HPI Narrative: 45-year-old female presents emergency room with sats in the 70% range at home this morning with ambulating. She is also significantly short of breath at this time. Normally she uses oxygen only at night she has a history of COPD and is on multiple medic inhaled medications. Over the last 4 days she has had increasing shortness of breath and cough. She has had significant myalgias and begun to have some diarrhea. She has not noted any fever. She has been vaccinated for COVID and is received a booster. MD elicited complaint: shortness of breath and cough Pertinent past history: COPD Onset (ago): day(s) (4) Timing: constant Severity: moderate Exacerbating factors: exertion and coughing Relieving factors: oxygen and rest Known history of: COPD Associated symptoms: Reports chest congestion, cough, extremity pain and myalgias; Deny abdominal pain, chest pain, diaphoresis, dizziness, fever(s), hemoptysis, lightheadedness, nausea, orthopnea, palpitations, paresthesias, polydipsia, polyuria, rash, sense of impending doom, syncope or vomiting Treatment prior to arrival: none Review of Systems Const: Denies: fever(s) or diaphoresis Card: Denies: chest pain, palpitations, lightheadedness, syncope or orthopnea Resp: Reports: chest congestion; Denies: hemoptysis GI: Denies: abdominal pain, nausea or vomiting Musc: Reports: extremity pain Neuro: Denies: dizziness Endo: Denies: polyuria or polydipsia PFS ED PFSH: Medical History (Updated 04/25/21 @ 00:01 by ) Anxiety and depression Bipolar disorder with severe mark Chronic nausea Chronic neck pain COPD (chronic obstructive pulmonary disease) Encounter for smoking cessation counseling Fracture of wrist with nonunion History of colon polyps Migraines Neuropathy of left peroneal nerve Nicotine dependence, unspecified, uncomplicated Nocturnal hypoxemia Osteoporosis Psychiatric care Social anxiety disorder Surgical History History of brain surgery History of cholecystectomy History of colonoscopy with polypectomy 2014 History of esophagogastroduodenoscopy (EGD) History of hysterectomy Social History Quit status (tobacco): has tried quititng Number of times tried to quit tobacco: 10 Second hand smoke exposure: Yes Smoking risk assessment/counseling performed?: Yes Alcohol intake: never Lives independently: Yes Household members: family Housing: Apartment Marital status: Current occupational status: disabled Pets and animals: Yes History of recent travel: No (june 25 2020 moved from [facility]) Current gender identity: Female Physical Exam Const: COMMON NORMALS: no acute distress GENERAL APPEARANCE: cooperative and comfortable ORIENTATION/CONSCIOUSNESS: Yes awake, Yes oriented to person, Yes oriented to place and Yes oriented to time HENMT: COMMON NORMALS: normocephalic, atraumatic and hearing grossly normal bilaterally HEAD & SCALP: normocephalic and atraumatic Resp: COMMON NORMALS: normal respiratory effort, No retractions and No use of accessory muscles AUSCULTATION: crackles and diminished lung sounds Cardio: COMMON NORMALS: regular rate, regular rhythm and No murmurs present (Cardio) RATE: regular rate RHYTHM: regular rhythm GI: COMMON NORMALS: Soft to palpation and No hepatosplenomegaly present AUSCULTATION: Yes normoactive bowel sounds PALPATION: Yes Soft to palpation, No Tenderness to palpation present (GI), No Guarding due to palpation present (GI) and Yes No hepatosplenomegaly present Extremity: COMMON NORMALS: normal to inspection, capillary refill normal, no clubbing, cyanosis or edema, no calf tenderness and no pedal edema Neuro: SENSORIUM/ORIENTATION: Yes oriented to person, Yes oriented to place and Yes oriented to time Skin: COMMON NORMALS: no rashes or lesions noted GENERAL SKIN EXAM: no rashes or lesions noted Course Vital Signs: Vital signs: Vital Signs Temperature 98.2 F 04/24/21 11:28 Pulse Rate 77 04/24/21 11:28 Respiratory Rate 16 04/24/21 11:28 Blood Pressure 131/69 04/24/21 11:28 Pulse Oximetry 89 L 04/24/21 11:58 MDM - SOB/Dyspnea MDM Narrative: Medical decision making narrative: Labs and imaging reviewed on the chart. COVID swab is pending. I suspect patient may have COVID or this may be just a serious exacerbation of COPD. Will admit discussed with Dr. tripp orders written. Patient is satting 70% on room air and on 2 L by nasal cannula it is at 92%. She is tachypneic and has significant increased work of breathing and will require inpatient care. Lab Data: Labs: Lab Results 04/23/21 04/23/21 04/23/21 13:35 13:35 13:50 WBC 14.8 10^3/uL H 10 ^3/uL (4.0-10.0) RBC 4.35 10^6/uL 10^6 /uL (4.1-5.3) Hgb 14.1 g/dL g/dL (11.5-15.3) Hct 42.4 % % (37.0-47.0) MCV 97.5 fl fl (81-99) MCH 32.4 pg pg (28.0-34.0) MCHC 33.3 g/dL g/dL (30.0-36.0) RDW 12.6 % % (12.1-15.1) Plt Count 325 10^3/cmm 10^3 /cmm (130-400) MPV 9.4 fL fL (7.4-10.4) Neut % (Auto) 90.1 % % Lymph % (Auto) 7.1 % % [place] % (Auto) 1.3 % % Eos % (Auto) 0.1 % % Baso % (Auto) 0.2 % % Neut # (Auto) 13.33 10^3/uL H 1 0^3/uL (1.8-7.7) Lymph # (Auto) 1.1 10^3/uL 10^3/ uL (0.8-4.8) [place] # (Auto) 0.2 10^3/uL 10^3/ uL (0.2-0.9) Eos # (Auto) 0.0 10^3/uL 10^3/ uL (0.0-0.8) Baso # (Auto) 0.0 10^3/uL 10^3/ uL (0.0-0.1) Nucleated RBC % (a uto) 0 % % Nucleated RBCs # 0.0 /100WBC /100W BC D-Dimer Specimen Type Sample Site ABG pH ABG pCO2 ABG pO2 ABG HCO3 ABG O2 Saturation ABG Base Excess Sp Test A-a O2 Gradient Hematocrit Hgb O2 Saturation Carboxyhemoglobin Methemoglobin Total Hemoglobin Ionized Calcium O2 Delivery Device O2 Liters/Min FiO2 Founder And Chief Technical Officer ID Sodium 138 mmol/L mmol/L (136-145) Potassium 3.5 mmol/L mmol/L (3.5-5.1) Chloride 100 mmol/L mmol/L (98-107) Carbon Dioxide 22 mmol/L mmol/L (22-29) Anion Gap 19.5 H (5-19) BUN 3 mg/dL L mg/dL (6-20) Creatinine 0.5 mg/dL mg/dL (0.5-0.9) GFR Calculation 132.2 mL/min H mL /min (90-130) Glucose 117 mg/dL H mg/dL (65-115) Calculated Osmolal ity 284 mOsm/kg L mOs m/kg (285-295) Calcium 8.6 mg/dL mg/dL (8.5-10.5) Total Bilirubin 0.2 mg/dL mg/dL (0.15-1.2) AST 15 U/L U/L (0-32) ALT 11 U/L U/L (0-33) Alkaline Phosphata se 140 IU/L H IU/L (35-105) Total Protein 7.1 g/dL g/dL (6.6-8.7) Albumin 4.3 g/dL g/dL (3.5-5.2) Globulin 2.8 g/dL g/dL (1.3-4.6) Procalcitonin 0.04 ng/mL ng/mL (0-0.5) Urine Color Urine Appearance Urine pH Ur Specific Gravit y Urine Protein Urine Glucose (UA) Urine Ketones Urine Blood Urine Nitrate Urine Bilirubin Urine Urobilinogen Ur Leukocyte Emelyn ase Urine RBC Urine WBC Ur Squamous Epith Cells Amorphous Sediment Urine Bacteria Urine Mucus Coronavirus 229E ( PCR) SARS-CoV-2 (PCR) SARS-CoV-2 Ag (Rap id) Negative (Negative) 04/23/21 04/23/21 04/23/21 14:14 14:16 16:00 WBC RBC Hgb Hct MCV MCH MCHC RDW Plt Count MPV Neut % (Auto) Lymph % (Auto) [place] % (Auto) Eos % (Auto) Baso % (Auto) Neut # (Auto) Lymph # (Auto) [place] # (Auto) Eos # (Auto) Baso # (Auto) Nucleated RBC % (a uto) Nucleated RBCs # D-Dimer 0.46 ug/mIFEU ug/ mIFEU (0-0.59) Specimen Type Arterial Sample Site Brachial, left ABG pH 7.42 (7.35-7.45) ABG pCO2 41.8 mmHg mmHg (35-45) ABG pO2 75.9 mmHg L mmHg (80.0-100.0) ABG HCO3 26.8 mmol/L H mmo l/L (22-26) ABG O2 Saturation 96.2 ABG Base Excess 1.9 mmol/L mmol/L (-2.0-2.0) Sp Test Pos A-a O2 Gradient 9.0 mmHg mmHg (5-10) Hematocrit 43.3 % % (37-47) Hgb O2 Saturation 94.3 % L % (95-100) Carboxyhemoglobin 0.9 %THgb %THgb (0.4-20.1) Methemoglobin 1.0 % % (0.4-1.5) Total Hemoglobin 14.1 g/dL g/dL (12-16) Ionized Calcium 1.2 mmol/L mmol/L (1.1-1.4) O2 Delivery Device Nc O2 Liters/Min 2.0 % % FiO2 28.0 % % Founder And Chief Technical Officer ID [place]ro Sodium 140.0 mmol/L mmol /L (131-143) Potassium 3.2 mmol/L L mmol /L (3.5-5.0) Chloride Carbon Dioxide Anion Gap BUN Creatinine GFR Calculation Glucose 136.0 mg/dL H mg/ dL (70-115) Calculated Osmolal ity Calcium Total Bilirubin AST ALT Alkaline Phosphata se Total Protein Albumin Globulin Procalcitonin Urine Color Yellow (Yellow) Urine Appearance Clear (CLEAR) Urine pH 5 (5-7) Ur Specific Gravit y 1.010 (1.005-1.030) Urine Protein Neg (Negative) Urine Glucose (UA) Norm (Normal) Urine Ketones Negative (Negative) Urine Blood 2+ H (Negative) Urine Nitrate Negative (Negative) Urine Bilirubin Neg (Negative) Urine Urobilinogen Norm mg/dL mg/dL (Negative) Ur Leukocyte Emelyn ase Negative (Negative) Urine RBC None /hpf /hpf (0-2) Urine WBC None /hpf /hpf (0-5) Ur Squamous Epith Cells Rare /hpf /hpf (0-5) Amorphous Sediment Not Reportable Urine Bacteria Trace /hpf /hpf (NONE) Urine Mucus 1+ /hpf /hpf Coronavirus 229E ( PCR) SARS-CoV-2 (PCR) SARS-CoV-2 Ag (Rap id) 04/23/21 19:55 WBC RBC Hgb Hct MCV MCH MCHC RDW Plt Count MPV Neut % (Auto) Lymph % (Auto) [place] % (Auto) Eos % (Auto) Baso % (Auto) Neut # (Auto) Lymph # (Auto) [place] # (Auto) Eos # (Auto) Baso # (Auto) Nucleated RBC % (a uto) Nucleated RBCs # D-Dimer Specimen Type Sample Site ABG pH ABG pCO2 ABG pO2 ABG HCO3 ABG O2 Saturation ABG Base Excess Sp Test A-a O2 Gradient Hematocrit Hgb O2 Saturation Carboxyhemoglobin Methemoglobin Total Hemoglobin Ionized Calcium O2 Delivery Device O2 Liters/Min FiO2 Founder And Chief Technical Officer ID Sodium Potassium Chloride Carbon Dioxide Anion Gap BUN Creatinine GFR Calculation Glucose Calculated Osmolal ity Calcium Total Bilirubin AST ALT Alkaline Phosphata se Total Protein Albumin Globulin Procalcitonin Urine Color Urine Appearance Urine pH Ur Specific Gravit y Urine Protein Urine Glucose (UA) Urine Ketones Urine Blood Urine Nitrate Urine Bilirubin Urine Urobilinogen Ur Leukocyte Emelyn ase Urine RBC Urine WBC Ur Squamous Epith Cells Amorphous Sediment Urine Bacteria Urine Mucus Coronavirus 229E ( PCR) Not detected (NOT DETECT) SARS-CoV-2 (PCR) Not detected (NOT DETECT) SARS-CoV-2 Ag (Rap id) Discharge Plan Discharge Admit Provider: Abdias Tripp Condition: Stable Discharge Orders: Discharge Order (Routine); Ordered 04/24/21 Ordered By: Abdias Tripp Discharge Diet: Cardiac Discharge Activity: Increase activity as tolerated Coding Level of Care Code ED Account Liaison [facility] Fwd Exam Detailed
[2021-04-23 13:41] VITALS: BP 150/101; PULSE 85; PULSE 88; RESP 27; O2SAT 95
[2021-04-23 13:53] LABS: Basophils % 0.2 %; Eosinophils % 0.1 %; Hematocrit 42.4 % (37.0-47.0); Hemoglobin 14.1 g/dL (11.5-15.3); Lymphocytes # 1.1 10^3/uL (0.8-4.8); Lymphocytes % 7.1 %; Mean Corpuscular HGB Conc 33.3 g/dL (30.0-36.0); Mean Corpuscular Hemoglobin 32.4 pg (28.0-34.0); Mean Corpuscular Volume 97.5 fl (81-99); Mean Platelet Volume 9.4 fL (7.4-10.4); Monocytes # 0.2 10^3/uL (0.2-0.9); Monocytes % 1.3 %; Neutrophils # 13.33 10^3/uL (1.8-7.7); Neutrophils % 90.1 %; Nucleated Red Blood Cells % 0 %; Platelet Count 325 10^3/cmm (130-400); Red Blood Count 4.35 10^6/uL (4.1-5.3); Red Cell Distribution Width 12.6 % (12.1-15.1); White Blood Count 14.8 10^3/uL (4.0-10.0)
[2021-04-23 14:12] LABS: Alanine Aminotransferase 11 U/L (0-33); Albumin Level 4.3 g/dL (3.5-5.2); Alkaline Phosphatase 140 IU/L (35-105); Anion Gap 19.5 (5-19); Aspartate Amino Transferase 15 U/L (0-32); Blood Urea Nitrogen 3 mg/dL (6-20); Calcium 8.6 mg/dL (8.5-10.5); Carbon Dioxide 22 mmol/L (22-29); Chloride 100 mmol/L (98-107); Globulin 2.8 g/dL (1.3-4.6); Glomerular Filtration Rate 132.2 mL/min (90-130); Glucose 117 mg/dL (65-115); Osmolality Calculated 284 mOsm/kg (285-295); Potassium 3.5 mmol/L (3.5-5.1); Sodium 138 mmol/L (136-145); Total Bilirubin 0.2 mg/dL (0.15-1.2); Total Protein 7.1 g/dL (6.6-8.7)
[2021-04-23] MEDS: dexamethasone 10 mg/mL INJ IVP (14:12)
[2021-04-23] MEDS: albuterol 8 gm MDI 2 PUFF INHALATION (14:15)
[2021-04-23 14:16] VITALS: PULSE 78; RESP 22; O2SAT 95
[2021-04-23 14:19] LABS: Procalcitonin 0.04 ng/mL (0-0.5)
[2021-04-23 14:26] LABS: ABG PCO2 41.8 mmHg (35-45); ABG PH Result 7.42 (7.35-7.45); Arterial Blood Gas Hematocrit 43.3 % (37-47); Base Excess ABG 1.9 mmol/L (-2.0-2.0); Blood Gas Allen Test Pos; Blood Gas Operator Identificat MONRO; Blood Gas Sample Site Brachial, left; Blood Gas Sample Type Arterial; Carboxyhemoglobin 0.9 %THgb (0.4-20.1); HCO3 ABG 26.8 mmol/L (22-26); HGB O2 Sat 94.3 % (95-100); Ionized Calcium Level - ABG 1.2 mmol/L (1.1-1.4); Oxygen Device NC; Oxygen Saturation ABG 96.2; PO2 ABG 75.9 mmHg (80.0-100.0); Potassium Level - ABG 3.2 mmol/L (3.5-5.0); Total Hemoglobin 14.1 g/dL (12-16)
[2021-04-23 14:42] LABS: SARS Covid-2 Antigen Negative (Negative)
[2021-04-23 16:06] LABS: D Dimer 0.46 ug/mIFEU (0-0.59)
[2021-04-23 17:37] LABS: Urine Appearance Clear (CLEAR); Urine Color Yellow (Yellow)
[2021-04-23 17:38] LABS: Add Urine Microscopic? YES; Bilirubin Urine Neg (Negative); Blood Urine 2+ (Negative); Glucose Urine UA Norm (Normal); Ketones Urine Negative (Negative); Leukocyte Esterase Urine Negative (Negative); Nitrate Urine Negative (Negative); Protein Urine Neg (Negative); Urobilinogen Urine Norm (Negative); pH Urine 5 (5-7)
[2021-04-23 17:40] LABS: Add Urine Culture? No; Bacteria Urine TRACE /hpf; Mucus Urine 1+ /hpf; Squamous Epithelial Cell Urine RARE /hpf (0-5)
--- NOTE | 2021-04-23 18:05 | PM.HP ---
Providers/Chief Complaint Primary Care Provider: Hever Lee MD Chief Complaint: LOW O2/NOT COVID RELATED: 71%-85% History of Present Illness Jazmín Shaw is a 45 year old female carries history of nonoxygen dependent COPD presented today with chief complaint of worsening shortness of breath.PMH of anxiety disorder, COPD, depression, osteoarthritis, osteoporosis, chronic pain, Chiari malformation decompression, recently moved from [place]. She uses 2 L of nasal cannula at nighttime. She has seen insurance counselor, orthopedics for scaphoid fracture. Dr. Damon diagnosed her with mononeuritis. Patient is stating that her symptoms are about 4 days ago, she denies any fever, chest pain or productive cough. She has been wheezing and today her shortness of breath got worse. She is attributing her symptoms to recent exposure to someone who was sick with flu at her brother's home. She has been vaccinated for COVID-19. Today she used her rescue inhaler 4 times without significant improvement in her symptoms and decided to come to the ED for further evaluation. She was diagnosed with mild COPD exacerbation she is currently wheezing. She is stating that whenever she gets sick she got nausea and vomiting. In the ER leukocytosis 14.8 D-dimer unremarkable compensated pH requiring 2 L of oxygen which is new Review of Systems Const: Reports: chills and body aches; Denies: fever(s) Eyes: Denies: change in vision ENMT: Denies: throat pain Card: Reports: dyspnea on exertion; Denies: chest pain or orthopnea Resp: Reports: dyspnea and non-productive cough GI: Reports: nausea; Denies: abdominal pain : Denies: flank pain Musc: Denies: neck pain Skin/Breast: Denies: rash Neuro: Reports: headache(s) Psych: Reports: anxiety Endo: Denies: polyuria Apolinar/Lymph: Denies: easy bruising All/Imm: Denies: urticaria Medications/Allergies Home Medications Medication Instructions Recorded Confirmed Last Taken Type acetaminophen 325 mg capsule 325 mg PO QID PRN 12/24/20 04/23/21 Unknown History ibuprofen 200 mg tablet 200 mg PO Q6H PRN 12/24/20 04/23/21 Unknown History albuterol sulfate 90 mcg/actuation 2 puff INHALATION Q6H PRN #8.5 g 03/31/21 04/23/21 Unknown Rx aerosol inhaler alendronate 70 mg tablet 70 mg PO Q7D #14 tab 03/31/21 04/23/21 04/17/21 Rx uzjnsmhdux-cuewilixcqwqr-fznditur 2 tab PO Q4H PRN 30 Days #30 tab 03/31/21 04/23/21 Unknown Rx 50 mg-325 mg-40 mg tablet citalopram 40 mg tablet 40 mg PO DAILY@2200 #30 tab 03/31/21 04/23/21 04/22/21 Rx lamotrigine 200 mg tablet 200 mg PO BID #60 tab 03/31/21 04/23/21 04/22/21 Rx tiotropium 2.5 mcg-olodaterol 2.5 2 puff INHALATION DAILY #4 g 03/31/21 04/23/21 04/22/21 Rx mcg/actuation mist for inhalation clonazepam 0.5 mg tablet 0.25 mg PO BID PRN 30 Days #30 tab 04/06/21 04/23/21 Unknown Rx promethazine 25 mg tablet 25 mg PO Q6H PRN #30 tab 04/19/21 04/23/21 Unknown Rx thumb spica splint #1 ea 04/19/21 04/23/21 Unknown Rx trazodone 200 mg PO BEDTIME PRN 04/23/21 04/23/21 Unknown History Allergies Allergy/AdvReac Type Severity Reaction Status Date / Time sumatriptan [From Imitrex] Allergy Intermediate ALGY-Hives Verified 04/23/21 13:23 PFSH Acute PFSH: Medical History (Updated 04/23/21 @ 18:31 by Abdias Tripp MD) Anxiety and depression Bipolar disorder with severe mark Chronic nausea Chronic neck pain COPD (chronic obstructive pulmonary disease) Encounter for smoking cessation counseling Fracture of wrist with nonunion History of colon polyps Migraines Neuropathy of left peroneal nerve Nicotine dependence, unspecified, uncomplicated Nocturnal hypoxemia Osteoporosis Psychiatric care Social anxiety disorder Surgical History History of brain surgery History of cholecystectomy History of colonoscopy with polypectomy 2014 History of esophagogastroduodenoscopy (EGD) History of hysterectomy Social History Quit status (tobacco): has tried quititng Number of times tried to quit tobacco: 10 Second hand smoke exposure: Yes Smoking risk assessment/counseling performed?: Yes Alcohol intake: never Lives independently: Yes Household members: family Housing: Apartment Marital status: Current occupational status: disabled Pets and animals: Yes History of recent travel: No (june 25 2020 moved from [facility]) Current gender identity: Female Vitals/I&O/Wt Last Vital Signs Temp 98.4 F 04/23/21 13:20 Pulse 78 04/23/21 14:16 Resp 22 H 04/23/21 14:16 BP 150/101 04/23/21 13:41 Pulse Ox 95 04/23/21 14:16 Weight last 48 hrs Weight 54.431 kg Physical Exam Narrative: EXAM NARRATIVE: Young female Appears stated age Dehydrated Diffuse active wheezing Currently requiring 2 L nasal cannula No conversational dyspnea Hoarseness of voice Soft abdomen S1, S2 No signs of edema Appears anxious, restless legs Data : 04/23/21 13:35 04/23/21 13:35 A&P Assessment and plan (1) COPD exacerbation: Status: Acute (2) Chronic nausea: Status: Acute (3) COPD (chronic obstructive pulmonary disease): Status: Acute Qualifiers: COPD type: emphysema Emphysema type: centrilobular Qualified Code(s): J43.2 - Centrilobular emphysema (4) Hypoxia: Status: Acute Additional A&P Information Mild COPD exacerbation Acute hypoxia D-dimer unremarkable We will give her IV steroids for active wheezing Continue ceftriaxone and azithromycin for COPD exacerbation no signs of pneumonia Home O2 evaluation Plan to discharge tomorrow morning with steroids and addition of inhaled steroids Most likely viral bronchitis to be the etiology of COPD exacerbation, Covid PCR is pending She is vaccinated Bipolar: Continue anxiolytics Migraine with nausea: We will give her Zofran, Nocturnal hypoxemia uses 2 L of oxygen at night Full code Regular diet DVT prophylaxis Lovenox Would recommend outpatient follow-up with insurance counselor after discharge Attestations Medical Necessity Statement*: Discharge within 48 hours Time Spent in Patient Care: Greater than 35 minutes Coding Level of Care Code Acute Service Station Equipment Mechanic for g Fwd Diagnoses COPD exacerbation J44.1 Chronic nausea R11.0 COPD (chronic obstructive pulmonary disease) J43.2 COPD type: emphysema Emphysema type: centrilobular Hypoxia R09.02
[2021-04-23 19:57] VITALS: BP 143/77; PULSE 81; RESP 18; O2SAT 93
[2021-04-23 21:30] VITALS: PULSE 68
[2021-04-23 21:40] LABS: Adenovirus Not Detected (NOT DETECT); Chlamydia Pneumoniae Not Detected (NOT DETECT); Coronavirus 229E,HKU1,NL63,OC4 Not Detected (NOT DETECT); Human Metapneumovirus Not Detected (NOT DETECT); Human Rhinovirus/Enterovirus Not Detected (NOT DETECT); Influenza A Not Detected (NOT DETECT); Influenza A H1 Not Detected (NOT DETECT); Influenza A H1-2009 Not Detected (NOT DETECT); Influenza A H3 Not Detected (NOT DETECT); Influenza B Not Detected (NOT DETECT); Mycoplasma Pneumoniae Not Detected (NOT DETECT); Parainfluenza Virus Type 1 Not Detected (NOT DETECT); Parainfluenza Virus Type 2 Not Detected (NOT DETECT); Parainfluenza Virus Type 3 Not Detected (NOT DETECT); Parainfluenza Virus Type 4 Not Detected (NOT DETECT); Respiratory Syncytial Virus A Not Detected (NOT DETECT); Respiratory Syncytial Virus B Not Detected (NOT DETECT); SARS-COV-2 Not Detected (NOT DETECT)
[2021-04-23] MEDS: ondansetron 2 mg/ML SDV 2 mL 4 MG IVP (21:42)
[2021-04-23] MEDS: zolpidem 5 mg Tablet PO (21:43)
[2021-04-23] MEDS: citalopram 20 mg Tablet 40 MG PO (21:43)
[2021-04-23] MEDS: enoxaparin 40 mg/0.4 mL Syringe SUBCUT (21:43)
[2021-04-23] MEDS: acetaminophen 325 mg Tablet PO (21:52)
[2021-04-23 22:31] VITALS: BP 128/85; PULSE 90; RESP 23; TEMP 36.8; O2SAT 94
[2021-04-24] VITALS (8 sets, daily range): BP systolic 123–150; BP diastolic 69–79; PULSE 71–87; RESP 16–22; TEMP 36.8–37.2; O2SAT 80–98
[2021-04-24] MEDS: trazodone 100 mg Tablet 200 MG PO (02:01)
[2021-04-24 05:15] LABS: Basophils % 0.2 %; Hematocrit 40.4 % (37.0-47.0); Hemoglobin 13.7 g/dL (11.5-15.3); Lymphocytes # 1.8 10^3/uL (0.8-4.8); Lymphocytes % 14.4 %; Mean Corpuscular HGB Conc 33.9 g/dL (30.0-36.0); Mean Corpuscular Hemoglobin 32.5 pg (28.0-34.0); Mean Platelet Volume 9.5 fL (7.4-10.4); Monocytes # 0.5 10^3/uL (0.2-0.9); Monocytes % 4.3 %; Neutrophils % 80.4 %; Nucleated Red Blood Cells % 0 %; Platelet Count 305 10^3/cmm (130-400); Red Blood Count 4.21 10^6/uL (4.1-5.3); Red Cell Distribution Width 12.4 % (12.1-15.1); White Blood Count 12.2 10^3/uL (4.0-10.0)
[2021-04-24 05:34] LABS: Anion Gap 14.5 (5-19); Blood Urea Nitrogen 7 mg/dL (6-20); Calcium 8.8 mg/dL (8.5-10.5); Carbon Dioxide 27 mmol/L (22-29); Chloride 101 mmol/L (98-107); Glomerular Filtration Rate 132.2 mL/min (90-130); Glucose 106 mg/dL (65-115); Osmolality Calculated 286 mOsm/kg (285-295); Potassium 3.5 mmol/L (3.5-5.1); Sodium 139 mmol/L (136-145)
[2021-04-24 05:35] LABS: C Reactive Protein 27.6 mg/L (0.0-4.9)
[2021-04-24] MEDS: cefTRIAXone 1,000 MG in sodium chloride 0.9% (plus) 50 ML 100 MG IV (08:53)
[2021-04-24] MEDS: lamoTRIgine 100 mg Tablet 200 MG PO (08:53)
[2021-04-24] MEDS: azithromycin 250 mg Tablet 500 MG PO (08:54)
[2021-04-24] MEDS: ipratropium-albuterol 3 mL Neb INHALATION (08:59)
--- NOTE | 2021-04-24 11:03 | PM.DCS ---
Discharge Providers Date of Admission: 04/23/21 20:30 Date of Discharge: April 24, 2021 Attending Provider at Admission: Abdias Tripp MD Attending Provider at Discharge: Abdias Tripp MD Primary Care Provider: Hever Lee MD Diagnoses at Discharge Discharge Diagnosis (1) COPD exacerbation: Status: Acute (2) Chronic nausea: Status: Acute (3) COPD (chronic obstructive pulmonary disease): Status: Acute Qualifiers: COPD type: emphysema Emphysema type: centrilobular Qualified Code(s): J43.2 - Centrilobular emphysema (4) Hypoxia: Status: Acute Reason for Visit Reason for Visit: LOW O2/NOT COVID RELATED: 71%-85% Hospital Course Hospital Course 45-year-old female who was admitted on 04/23 for management of mild COPD exacerbation related to viral bronchitis. She was requiring 2 L of oxygen to keep her O2 saturation above 90%, patient uses 2 L of oxygen at night, he recently had sleep study done, has seen cream tester, orthopedics and neurologist. She takes LAMA LABA and Meredith combination. She is not on any systemic steroids. She was diagnosed to have active wheezing. Patient is vaccinated for COVID-19. Covid PCR negative. She thinks she caught flu from a friend who visited her brother recently. She will be discharged on Medrol pack, Pulmicort, doxycycline. For her bronchitis she only close follow-up with cream tester. Leukocytosis trending down, she was not septic, wheezing improved with IV steroids. She remained afebrile. Her blood gas is satisfactory on 2 L nasal cannula. D-dimer unremarkable. She has quit smoking. Please see cream tester note for further details. Physical Exam Narrative: EXAM NARRATIVE: Patient sitting comfortably in her bed 2 L nasal cannula No acute respiratory distress No active conversational dyspnea Mild wheezing however improved since yesterday S1, S2 Malnourished No signs of edema Hematoma: Nonfocal exam Discharge Data Data Completed and Pending: Completed Studies During Hospitalization Category Date Time Status XR chest 1V neha ble 24804 Stat Exams 04/23/21 13:34 Completed Labs from last 24 hours 04/24/21 04/24/21 04/24/21 04:54 04:54 04:54 WBC 12.2 H RBC 4.21 Hgb 13.7 Hct 40.4 MCV 96.0 MCH 32.5 MCHC 33.9 RDW 12.4 Plt Count 305 MPV 9.5 Neut % (Auto) 80.4 Lymph % (Auto) 14.4 Hawkins % (Auto) 4.3 Eos % (Auto) 0.0 Baso % (Auto) 0.2 Neut # (Auto) 9.80 H Lymph # (Auto) 1.8 Hawkins # (Auto) 0.5 Eos # (Auto) 0.0 Baso # (Auto) 0.0 Nucleated RBC % (a uto) 0 Nucleated RBCs # 0.0 D-Dimer Specimen Type Sample Site ABG pH ABG pCO2 ABG pO2 ABG HCO3 ABG O2 Saturation ABG Base Excess Sp Test A-a O2 Gradient Hematocrit Hgb O2 Saturation Carboxyhemoglobin Methemoglobin Total Hemoglobin Ionized Calcium O2 Delivery Device O2 Liters/Min FiO2 Thermostatic Controls Supervisor ID Sodium 139 Potassium 3.5 Chloride 101 Carbon Dioxide 27 Anion Gap 14.5 BUN 7 Creatinine 0.5 GFR Calculation 132.2 H Glucose 106 Calculated Osmolal ity 286 Calcium 8.8 Magnesium 2.0 Total Bilirubin AST ALT Alkaline Phosphata se C-Reactive Protein 27.6 H Total Protein Albumin Globulin Procalcitonin Urine Color Urine Appearance Urine pH Ur Specific Gravit y Urine Protein Urine Glucose (UA) Urine Ketones Urine Blood Urine Nitrate Urine Bilirubin Urine Urobilinogen Ur Leukocyte Emelyn ase Urine RBC Urine WBC Ur Squamous Epith Cells Amorphous Sediment Urine Bacteria Urine Mucus Coronavirus 229E ( PCR) SARS-CoV-2 (PCR) SARS-CoV-2 Ag (Rap id) 04/23/21 04/23/21 04/23/21 19:55 16:00 14:16 WBC RBC Hgb Hct MCV MCH MCHC RDW Plt Count MPV Neut % (Auto) Lymph % (Auto) Hawkins % (Auto) Eos % (Auto) Baso % (Auto) Neut # (Auto) Lymph # (Auto) Hawkins # (Auto) Eos # (Auto) Baso # (Auto) Nucleated RBC % (a uto) Nucleated RBCs # D-Dimer 0.46 Specimen Type Sample Site ABG pH ABG pCO2 ABG pO2 ABG HCO3 ABG O2 Saturation ABG Base Excess Sp Test A-a O2 Gradient Hematocrit Hgb O2 Saturation Carboxyhemoglobin Methemoglobin Total Hemoglobin Ionized Calcium O2 Delivery Device O2 Liters/Min FiO2 Thermostatic Controls Supervisor ID Sodium Potassium Chloride Carbon Dioxide Anion Gap BUN Creatinine GFR Calculation Glucose Calculated Osmolal ity Calcium Magnesium Total Bilirubin AST ALT Alkaline Phosphata se C-Reactive Protein Total Protein Albumin Globulin Procalcitonin Urine Color Yellow Urine Appearance Clear Urine pH 5 Ur Specific Gravit y 1.010 Urine Protein Neg Urine Glucose (UA) Norm Urine Ketones Negative Urine Blood 2+ H Urine Nitrate Negative Urine Bilirubin Neg Urine Urobilinogen Norm Ur Leukocyte Emelyn ase Negative Urine RBC None Urine WBC None Ur Squamous Epith Cells Rare Amorphous Sediment Not Reportable Urine Bacteria Trace Urine Mucus 1+ Coronavirus 229E ( PCR) Not detected SARS-CoV-2 (PCR) Not detected SARS-CoV-2 Ag (Rap id) 04/23/21 04/23/21 04/23/21 14:14 13:50 13:35 WBC 14.8 H RBC 4.35 Hgb 14.1 Hct 42.4 MCV 97.5 MCH 32.4 MCHC 33.3 RDW 12.6 Plt Count 325 MPV 9.4 Neut % (Auto) 90.1 Lymph % (Auto) 7.1 Hawkins % (Auto) 1.3 Eos % (Auto) 0.1 Baso % (Auto) 0.2 Neut # (Auto) 13.33 H Lymph # (Auto) 1.1 Hawkins # (Auto) 0.2 Eos # (Auto) 0.0 Baso # (Auto) 0.0 Nucleated RBC % (a uto) 0 Nucleated RBCs # 0.0 D-Dimer Specimen Type Arterial Sample Site Brachial, left ABG pH 7.42 ABG pCO2 41.8 ABG pO2 75.9 L ABG HCO3 26.8 H ABG O2 Saturation 96.2 ABG Base Excess 1.9 Sp Test Pos A-a O2 Gradient 9.0 Hematocrit 43.3 Hgb O2 Saturation 94.3 L Carboxyhemoglobin 0.9 Methemoglobin 1.0 Total Hemoglobin 14.1 Ionized Calcium 1.2 O2 Delivery Device Nc O2 Liters/Min 2.0 FiO2 28.0 Thermostatic Controls Supervisor ID Monro Sodium 140.0 Potassium 3.2 L Chloride Carbon Dioxide Anion Gap BUN Creatinine GFR Calculation Glucose 136.0 H Calculated Osmolal ity Calcium Magnesium Total Bilirubin AST ALT Alkaline Phosphata se C-Reactive Protein Total Protein Albumin Globulin Procalcitonin Urine Color Urine Appearance Urine pH Ur Specific Gravit y Urine Protein Urine Glucose (UA) Urine Ketones Urine Blood Urine Nitrate Urine Bilirubin Urine Urobilinogen Ur Leukocyte Emelyn ase Urine RBC Urine WBC Ur Squamous Epith Cells Amorphous Sediment Urine Bacteria Urine Mucus Coronavirus 229E ( PCR) SARS-CoV-2 (PCR) SARS-CoV-2 Ag (Rap id) Negative 04/23/21 13:35 WBC RBC Hgb Hct MCV MCH MCHC RDW Plt Count MPV Neut % (Auto) Lymph % (Auto) Hawkins % (Auto) Eos % (Auto) Baso % (Auto) Neut # (Auto) Lymph # (Auto) Hawkins # (Auto) Eos # (Auto) Baso # (Auto) Nucleated RBC % (a uto) Nucleated RBCs # D-Dimer Specimen Type Sample Site ABG pH ABG pCO2 ABG pO2 ABG HCO3 ABG O2 Saturation ABG Base Excess Sp Test A-a O2 Gradient Hematocrit Hgb O2 Saturation Carboxyhemoglobin Methemoglobin Total Hemoglobin Ionized Calcium O2 Delivery Device O2 Liters/Min FiO2 Thermostatic Controls Supervisor ID Sodium 138 Potassium 3.5 Chloride 100 Carbon Dioxide 22 Anion Gap 19.5 H BUN 3 L Creatinine 0.5 GFR Calculation 132.2 H Glucose 117 H Calculated Osmolal ity 284 L Calcium 8.6 Magnesium Total Bilirubin 0.2 AST 15 ALT 11 Alkaline Phosphata se 140 H C-Reactive Protein Total Protein 7.1 Albumin 4.3 Globulin 2.8 Procalcitonin 0.04 Urine Color Urine Appearance Urine pH Ur Specific Gravit y Urine Protein Urine Glucose (UA) Urine Ketones Urine Blood Urine Nitrate Urine Bilirubin Urine Urobilinogen Ur Leukocyte Emelyn ase Urine RBC Urine WBC Ur Squamous Epith Cells Amorphous Sediment Urine Bacteria Urine Mucus Coronavirus 229E ( PCR) SARS-CoV-2 (PCR) SARS-CoV-2 Ag (Rap id) Vitals: Last Vital Signs Temp 98.4 F 04/24/21 08:52 Pulse 83 04/24/21 09:04 Resp 17 04/24/21 08:59 BP 143/77 04/24/21 08:52 Pulse Ox 94 04/24/21 08:59 Discharge Plan Discharge Patient Disposition: Home Condition: Stable Prescriptions: New Medrol (Walter) 4 mg tablets,dose pack See Rx Instructions .ROUTE .COMPLEX Qty: 21 RF: 0 budesonide 90 mcg/actuation aerosol powdr breath activated 1 inh inhalation BID Qty: 1 RF: 2 doxycycline hyclate 100 mg tablet 100 mg PO BID 3 Days Qty: 6 RF: 0 Continued ibuprofen 200 mg tablet 200 mg PO Q6H PRN (Reason: Pain) RF: 0 acetaminophen [Tylenol] 325 mg capsule 325 mg PO QID PRN (Reason: Pain) RF: 0 (DME) thumb spica splint See Rx Instructions .Route .MEDSUPPLY Qty: 1 RF: 0 albuterol sulfate 90 mcg/actuation HFA aerosol inhaler 2 puff inhalation Q6H PRN (Reason: shortness of breath or wheezing) Qty: 8.5 RF: 5 alendronate [Fosamax] 70 mg tablet 70 mg PO Q7D Qty: 14 RF: 5 ccvkhdxwak-ujubtddxnxqjk-fhid 50-325-40 mg tablet 2 tab PO Q4H PRN (Reason: migraine headaches) 30 Days Qty: 30 RF: 5 citalopram 40 mg tablet 40 mg PO DAILY@2200 Qty: 30 RF: 5 lamotrigine 200 mg tablet 200 mg PO BID Qty: 60 RF: 5 Stiolto Respimat 2.5-2.5 mcg/actuation mist 2 puff inhalation DAILY Qty: 4 RF: 5 clonazepam 0.5 mg tablet 0.25 mg PO BID PRN (Reason: Anxity attacks) 30 Days Qty: 30 RF: 2 promethazine 25 mg tablet 25 mg PO Q6H PRN (Reason: nausea and vomiting) Qty: 30 RF: 1 trazodone 100 mg tablet 200 mg PO BEDTIME PRN (Reason: Mental health) RF: 0 Discharge Orders: Discharge Order (Routine); Ordered 04/24/21 Ordered By: Abdias Tripp Referrals: Sukhwinder Bird MD [Physician] - 1 week Hever Lee MD [Primary Care Provider] - 2 weeks Discharge Diet: Cardiac Discharge Activity: Increase activity as tolerated Patient Instructions: Opioid Safety Discharge Attestations Time Spent in Discharge Care*: less than 30 min Quality Metrics Clinical Quality Measures During this hospital stay, did patient experience: None Coding Level of Care Code Acute g [facility] note Diagnoses COPD exacerbation J44.1 Chronic nausea R11.0 COPD (chronic obstructive pulmonary disease) J43.2 COPD type: emphysema Emphysema type: centrilobular Hypoxia R09.02
[2021-04-24] MEDS: ondansetron 2 mg/ML SDV 2 mL 4 MG IVP (11:12)
[2021-04-24] MEDS: acetaminophen 325 mg Tablet PO (11:12)
--- NOTE | 2021-04-24 14:36 | PC.NURSE ---
Patient's doxycycline and medrol dose dia were called in [facility]. Unable to get budesonide due to unavailability at [facility] and [facility]
== END 2021-04-24 14:50 | disposition home or self-care (01) ==
LOC: ER 15:22 → MEDSURG 21:11
PROVIDERS: Admitting Provider Internal Medicine; Emergency Provider Family Medicine; PCP Family Medicine Adult Medicine; Visit Provider Internal Medicine
DX: J43.2 Centrilobular emphysema (principal); R11.0 Nausea; R09.02 Hypoxemia; Z99.81 Dependence on supplemental oxygen; M81.0 Age-related osteoporosis without current pathological fracture; F17.210 Nicotine dependence, cigarettes, uncomplicated
CPT/HCPCS: 36415; 36600; 71045; 80048; 80051; 80053; 81001; 82330; 82805; 83735; 84145; 85025; 85378; 86140; 87426; 87635; 94640; 94664; 96372; 96374; 96375; 99285; G0378; J0696; J1100; J1650; J2405; J2920; J3535; Q0144

== ENCOUNTER → 2021-05-03 11:29 | Outpatient (BNVA) | payer MEDICARE, SELFPAY | PROVIDERS: PCP Family Medicine Adult Medicine; Visit Provider Nurse Practitioner Family | DX: Z20.822 Contact with and (suspected) exposure to COVID-19 (principal) | CPT/HCPCS: 87635; 87801 ==

== ENCOUNTER 2021-05-07 13:51 | Emergency (ER) | payer MEDICARE, SELFPAY ==
[2021-05-07 14:01] VITALS: BP 133/82; PULSE 83; RESP 16; TEMP 36.4; O2SAT 97
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
== END 2021-05-07 15:44 ==
PROVIDERS: Emergency Provider Nurse Practitioner Family; PCP Family Medicine Adult Medicine
DX: Z04.1 Encounter for examination and observation following transport accident (principal); J44.9 Chronic obstructive pulmonary disease, unspecified; F17.210 Nicotine dependence, cigarettes, uncomplicated; V89.2XXA Person injured in unspecified motor-vehicle accident, traffic, initial encounter; S29.012A Strain of muscle and tendon of back wall of thorax, initial encounter
CPT/HCPCS: 72040; 72072; 96372; 99282; 99283; J1885; J2360

== ENCOUNTER 2021-05-07 20:21 | Emergency (ER) | payer MEDICARE, SELFPAY ==
[2021-05-07 20:31] VITALS: BP 145/80; PULSE 105; RESP 16; TEMP 37.2; O2SAT 98
[2021-05-07] MEDS: HYDROcodone-acetaminophen 5-325 mg Tablet 1 TAB PO (20:49)
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
[2021-05-07] MEDS: orphenadrine 30 mg/mL Inj 2 mL 60 MG IM (20:50)
[2021-05-07] MEDS: ketorolac 30 mg/mL INJ IM (20:50)
[2021-05-07 21:21] VITALS: BP 135/82; PULSE 85; RESP 16; O2SAT 97
== END 2021-05-07 21:22 | disposition home or self-care (01) ==
PROVIDERS: Emergency Provider Nurse Practitioner Family; PCP Family Medicine Adult Medicine
DX: S29.012A Strain of muscle and tendon of back wall of thorax, initial encounter (principal); J44.9 Chronic obstructive pulmonary disease, unspecified; F17.210 Nicotine dependence, cigarettes, uncomplicated; V89.2XXA Person injured in unspecified motor-vehicle accident, traffic, initial encounter
CPT/HCPCS: 96372; 99283; J1885; J2360

== ENCOUNTER → 2021-07-05 13:13 | Outpatient (BNVA) | payer MEDICARE, SELFPAY | PROVIDERS: PCP Family Medicine Adult Medicine; Referring Provider Family Medicine Adult Medicine; Visit Provider Specialist | DX: F41.9 Anxiety disorder, unspecified (principal); F32.A Depression, unspecified; G24.3 Spasmodic torticollis; G43.711 Chronic migraine without aura, intractable, with status migrainosus | CPT/HCPCS: 99204; 99205 ==

== ENCOUNTER 2021-08-03 06:00 | Outpatient (RCR) | payer MEDICARE, SELFPAY | END 2021-08-20 23:59 | disposition home or self-care (01) | LOC: SPT 06:00 | PROVIDERS: PCP Family Medicine Adult Medicine; Referring Provider Specialist; Visit Provider Specialist | DX: G24.3 Spasmodic torticollis (principal); M54.2 Cervicalgia | CPT/HCPCS: 97110; 97162 ==

== ENCOUNTER 2021-08-11 14:12 | Outpatient (CLI) | payer MEDICARE, SELFPAY ==
--- NOTE | 2021-08-11 14:30 | USCV_ITS ---
Colin Jazmín Age: 46 Gender: F : 1975 Exam Date: 08/11/2021 14:23 Ordering Phys: Carissa Damon MD Technologist: Gilda Ruiz [place] [facility] [place]: SYNCOPE WHEN SHE TURNS HER HEAD Risk Factors: Unknown Previous Vascular Surgery: None Right Brachial BP: / Left Brachial BP: / Right Left Velocity (cm/s) Spectral Plaque Velocity (cm/s) Spectral Plaque Syst/Diast Broadening Syst/Diast Broadening 87.10/ 23.20 Prox CCA 61.50 / 19.70 87.10/ 30.90 Mid CCA 60.70 / 24.80 76.10/ 27.60 Distal CCA 67.50 / 21.40 75.40/ 31.10 Prox ICA 60.90 / 29.90 73.80/ 32.60 Mid ICA 66.20 / 30.40 120.20/48.50 Distal ICA 77.70 / 33.40 59.80 ECA 71.60 1.38 ICA/CCA 1.28 Antegrade Vertebral Antegrade 53.20/ 18.40 cm/s 61.40/ 18.60 cm/s Bi Subclavian Bi 95.70 146.0 0 FINDINGS Minimal intimal thickening in the common carotid and internal carotid arteries. No unstable plaques or stenotic lesions Normal Doppler flow velocities in the carotids, subclavian and vertebral arteries CONCLUSIONS Minimal intimal thickening in the common carotid and internal carotid arteries. No significant stenosis or unstable lesions, based on the above findings No similar previous studies are available for comparison Dr Georgia Powell MD [facility] (Electronically Signed) Final Date: 12 August 2021 09:37 S
== END 2021-08-11 14:13 | disposition home or self-care (01) ==
LOC: RAD 14:17
PROVIDERS: PCP Family Medicine Adult Medicine; Visit Provider Specialist
DX: R55 Syncope and collapse (principal)
CPT/HCPCS: 93880

== ENCOUNTER 2021-08-19 15:00 | Outpatient (CLI) | payer MEDICARE, SELFPAY ==
--- NOTE | 2021-08-19 15:23 | MR_ITS ---
WS: [id number] MRI CERVICAL SPINE NONCONTRAST TECHNIQUE: Sagittal T1, T2 and STIR imaging. Axial T2, gradient, and fiesta imaging. CLINICAL INFORMATION: M54.2 - Cervicalgia COMPARISON: MRI November 05, 2020 FINDINGS: Straightening of the normal cervical lordosis. Cord signal is normal. Mild disc bulging with osteophy tic ridging C4-C5 and C5-C6. Slight retrolisthesis C5 on C6. Cord signal is normal. C2-C3: Normal. C3-C4: Mild disc bulging and osteophytic ridging. Mild facet arthropathy. Mild bilateral bony foramin al narrowing. Spinal canal is patent. C4-C5: Disc osteophyte complex with endplate ridging. Mild central canal stenosis. Slight contact of the ventral cervical cord. Moderate LEFT and no significant RIGHT bony foraminal narrowing. Mild cent ral canal stenosis. Moderate facet arthropathy. C5-C6: Disc osteophyte complex with endplate ridging. Indentation on the ventral cervical cord with m ild to moderate central canal stenosis appears slightly progressed compared to previous. Mild bilater al bony foraminal narrowing. Moderate facet arthropathy. C6-C7: LEFT eccentric disc osteophyte complex. Mild LEFT bony foraminal narrowing. RIGHT foramen is p atent. Spinal canal is patent. C7-T1: Normal. Visualized brain stem structures: Evidence of prior postoperative changes suboccipital craniectomy pr esumably for Chiari malformation. Prevertebral soft tissues: Normal. MR/MR cervical spin wo con* [id number] IMPRESSION: 1. Straightening of the normal cervical lordosis. Mild cervical curve. 2. Disc osteophyte complex C5-C6 with indentation on cervical cord and mild to moderate central canal stenosis appears slightly progressed compared to previo us. 3. LEFT pericentral disc osteophyte protrusion C4-C5 with slight indentation L EFT ventral cervical cord and mild central canal stenosis. 4. Multilevel mild to moderate bony foraminal narrowing worse at LEFT C4-C5, b ilateral C5-C6, and LEFT C6-C7.
== END 2021-08-19 15:01 | disposition home or self-care (01) ==
PROVIDERS: PCP Family Medicine Adult Medicine; Visit Provider Specialist
DX: M54.2 Cervicalgia (principal); M25.78 Osteophyte, vertebrae; M48.02 Spinal stenosis, cervical region
CPT/HCPCS: 72141

== ENCOUNTER 2021-08-21 06:00 | Outpatient (RCR) | payer MEDICARE, SELFPAY | END 2021-09-20 23:59 | disposition home or self-care (01) | LOC: SPT 06:00 | PROVIDERS: PCP Family Medicine Adult Medicine; Referring Provider Specialist; Visit Provider Specialist | DX: G24.3 Spasmodic torticollis (principal); M54.2 Cervicalgia | CPT/HCPCS: 97110 ==

== ENCOUNTER → 2021-08-23 13:52 | Outpatient (BNVA) | payer MEDICARE, SELFPAY | PROVIDERS: PCP Family Medicine Adult Medicine; Visit Provider Registered Nurse Neonatal Intensive Care | DX: N39.0 Urinary tract infection, site not specified (principal); R39.9 Unspecified symptoms and signs involving the genitourinary system | CPT/HCPCS: 81000; 87086 ==

== ENCOUNTER → 2021-12-05 08:11 | Outpatient (BNVA) | payer MEDICARE, SELFPAY | PROVIDERS: PCP Family Medicine Adult Medicine; Visit Provider Student in an Organized Health Care Education/Training Program | DX: X58.XXXS Exposure to other specified factors, sequela (principal); M19.132 Post-traumatic osteoarthritis, left wrist; S62.009 Unspecified fracture of navicular [scaphoid] bone of unspecified wrist | CPT/HCPCS: 99213 ==

== ENCOUNTER → 2021-12-05 08:18 | Outpatient (BNVA) | payer MEDICARE, SELFPAY | PROVIDERS: PCP Family Medicine Adult Medicine; Visit Provider Student in an Organized Health Care Education/Training Program | DX: S62.002G Unspecified fracture of navicular [scaphoid] bone of left wrist, subsequent encounter for fracture with delayed healing (principal); X58.XXXD Exposure to other specified factors, subsequent encounter; M25.532 Pain in left wrist; Z87.81 Personal history of (healed) traumatic fracture | CPT/HCPCS: 73110 ==

== ENCOUNTER → 2021-12-08 14:22 | Outpatient (BNVA) | payer MEDICARE, SELFPAY | PROVIDERS: PCP Family Medicine Adult Medicine; Referring Provider General Practice; Visit Provider Specialist | DX: R20.0 Anesthesia of skin (principal); R20.2 Paresthesia of skin; Z87.81 Personal history of (healed) traumatic fracture | CPT/HCPCS: 95910; 95912 ==

== ENCOUNTER → 2022-01-17 08:51 | Outpatient (BNVA) | payer MEDICARE, SELFPAY | PROVIDERS: PCP Family Medicine Adult Medicine; Visit Provider Specialist | DX: G43.711 Chronic migraine without aura, intractable, with status migrainosus (principal); G24.3 Spasmodic torticollis; F31.13 Bipolar disorder, current episode manic without psychotic features, severe; F17.210 Nicotine dependence, cigarettes, uncomplicated | CPT/HCPCS: 99214 ==

== ENCOUNTER 2022-01-20 16:06 | Outpatient (CLI) | payer MEDICARE, SELFPAY ==
--- NOTE | 2022-01-20 16:30 | CTR_ITS ---
PROCEDURE INFORMATION: Exam: CT Left Upper Extremity Without Contrast, Wrist Exam date and time: 01/20/2022 4:09 PM Age: 46 years old Clinical indication: Pain; Wrist; Left; Additional info: HX of fracture of wrist, center of scaphoid access TECHNIQUE: Imaging protocol: Computed tomography of the Left upper extremity without contrast. Exam focused on the wrist. Radiation optimization: All CT scans at this facility use at least one of these dose optimization techniques: automated exposure control; mA and/or kV adjustment per patient size (includes targeted exams where dose is matched to clinical indication); or iterative reconstruction. COMPARISON: CR XR wrist LT w scaphoid [id number] 12/05/2021 8:20 AM RADIATION DOSE METRICS: Total DLP (mGy-cm): 59.97 FINDINGS: Bones/joints: There is evidence of a nonunion fracture of the scaphoid waist. There are sclerotic margins developing adjacent to the fracture line. Soft tissues: Normal. 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
== END 2022-01-20 16:07 | disposition home or self-care (01) ==
LOC: RAD 16:07
PROVIDERS: PCP Family Medicine Adult Medicine; Visit Provider Student in an Organized Health Care Education/Training Program
DX: S62.102K Fracture of unspecified carpal bone, left wrist, subsequent encounter for fracture with nonunion (principal); Z87.81 Personal history of (healed) traumatic fracture; X58.XXXD Exposure to other specified factors, subsequent encounter
CPT/HCPCS: 73200

== ENCOUNTER → 2022-01-27 10:14 | Outpatient (BNVA) | payer MEDICARE, SELFPAY | PROVIDERS: PCP Family Medicine Adult Medicine; Visit Provider Student in an Organized Health Care Education/Training Program | DX: M19.139 Post-traumatic osteoarthritis, unspecified wrist (principal); S62.002K Unspecified fracture of navicular [scaphoid] bone of left wrist, subsequent encounter for fracture with nonunion; X58.XXXD Exposure to other specified factors, subsequent encounter | CPT/HCPCS: 99214 ==

== ENCOUNTER 2022-02-22 09:18 | Day surgery (SDC) | payer MEDICARE, SELFPAY ==
--- NOTE | 2022-02-22 | SCC_ITS ---
Procedure done: Left distal scaphoid nonunion excision and radial styloid ostectomy 1.03 minutes of fluoroscopic guidance, for a cumulative dose of 0.928 mGy, was provided to Dr. Stone by the radiology department. C-arm images of the Left wrist were saved for the patient's permanent record. ADAN
--- NOTE | 2022-02-22 | XR_ITS ---
WS: [id number] Left wrist, C-arm fluoroscopy views, 02/22/2022 Clinical Data: Left Scaphoid Resection Comparison: Left wrist, 12/05/2021 Findings: The distal portion of the left scaphoid has been resected. XR/XR wrist LT 2V [id number] Impression: Resection of distal left scaphoid.
[2022-02-22 09:41] VITALS: BP 139/82; PULSE 70; RESP 16; TEMP 36.1; O2SAT 97
[2022-02-22] MEDS: acetaminophen 1,000 MG/100 ML PIGGYBACK 400 MG IV (10:03)
[2022-02-22] MEDS: gabapentin 300 mg Capsule PO (10:03)
[2022-02-22] MEDS: ketorolac 30 mg/mL INJ IVP (10:03)
[2022-02-22] MEDS: sodium chloride 0.9% 1,000 ML 30 ML IV (10:03)
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
--- NOTE | 2022-02-22 10:27 | ANES.PROC ---
Anesthesia Procedures Procedure/Date: 02/22/22 Nerve Block ^: Nerve Block 1: Main Anesthesia: general anesthesia Time Out Performed: No Consent: requested by attending/covering physician, from patient, risks and benefits reviewed and patient agrees to proceed Nerve block location: axillary (+ musculcutaneous (L)) Anesthesia monitors applied: pulse oximetry, EKG, BP cuff and oxygen Nerve block position: supine Anesthetic Used: ropivicaine 0.5% (30 ml) and with decadron (4 mg) Nerve Stimulator Used?: No Interscalene/Femoral BLK: 2 stimuplex 22 g needle used for position and inplane approach, visualize local anesthetic spread and no vascular puncture identified Injection: neg aspiration of heme and paresthesia +/- Complications: none
[2022-02-22] MEDS: ceFAZolin 2,000 MG in sodium chloride 0.9% (plus) 50 ML 100 MG IV (10:48)
--- NOTE | 2022-02-22 10:48 | P.HPUD_ITS ---
Surgery/Procedure H&P Update DATE OF PROCEDURE: February 22, 2022 DATE H&P PERFORMED: 01/27/22 CHANGES TO PREVIOUS DOCUMENTATION: None Revisited with patient her treatment options. We did talk about nonoperative and operative intervention. As far as surgical intervention her arthritis is limited to the distal pole of the scaphoid as well as the radial styloid. She does have this mild DISI deformity however at this point she has focal pain over her nonunion distal pole of scaphoid site. We talked about treatment options of more limited approach with a Malerich procedure removing the distal pole of the scaphoid and perform a radial styloid ostectomy versus more salvage option as far as PRC or 4 corner fusion. At this point time through shared decision- making she would really like to keep this more of a limited procedure without loss of range of motion as well as strength. I feel at this point time she understands that this is not a guarantee to remove all of her pain and that this will potentially progress down the road but given her young age would like to be as minimal as possible and keep her range of motion and strength. She understands she will likely need a surgery down the road but this point time would like to proceed with left distal scaphoid resection and radial styloid ostectomy. All questions have been answered at this time. She understands the risk benefits complications and alternatives of surgical nonsurgical treatment options. Risks include but not limited to make a better make it worse, infection, wound complications, decreased function of the hand, injury to nerves or vessels. Understands risk agrees to proceed with surgical intervention. All questions answered. PREOP DIAGNOSIS: Left wrist scaphoid nonunion advanced collapse PRIMARY INDICATION FOR PROCEDURE: Early degenerative changes left wrist scaphoid nonunion focalized to the distal pole of the scaphoid and radial styloid. PLANNED PROCEDURE: Operation Date: 02/22/22 11:15 Proposed Procedures p Scaphoid Resection Left Wrist Distal Scaphoid Resection 83651/M19.139/S62.009S(Left) - Adarsh Stone DO
[2022-02-22] MEDS: lidocaine 1% INJ 20 mL INJECTION (11:26)
[2022-02-22] MEDS: gelatin 12-7 mm Sponge 1 EACH TOPICAL (12:13)
--- NOTE | 2022-02-22 12:30 | P.OP_ITS ---
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 Splint on in place clean dry and intact will be given appropriate discharge instructions as well as pain medication postoperatively. We will have her follow-up in the office in 2 weeks. Patient understands the any questions or concerns she can contact the office. Patient to be nonweightbearing to the left hand. Condition: stable Disposition: same day Coding Level of Care Code Acute Material Handling Crew Supervisor for Shiv Trevizo
[2022-02-22 12:32] VITALS: BP 133/90; PULSE 74; RESP 14; TEMP 36.3; O2SAT 96
--- NOTE | 2022-02-22 12:32 | PM.PACU ---
PACU note Narrative: Patient recovering well in PACU. Splint on in place clean dry and intact. Fingertips warm well perfused. Patient did receive regional anesthesia unable to assess motor or sensory secondary to regional anesthesia. Compartment soft compressible around splint. Exam: somnolent, arousable (Examination limited secondary to regional anesthesia see narrative for detailed exam) Disposition: discharged
--- NOTE | 2022-02-22 12:33 | PM.OP ---
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 She was seen and worked up in the outpatient setting and physical exam and radiographic findings consistent with a scaphoid nonunion with early stage of advanced collapse. We did have a CT scan which ultimately show a focalized arthritic pattern at the distal aspect of the scaphoid and the radial styloid. We talked about treatment options as far as nonoperative and operative intervention. She has very focal tenderness to palpation at the distal aspect of the scaphoid over the radial styloid. We talked about her risk benefits complication alternatives to surgical and nonsurgical treatment options. She understands risks and through shared decision making she would like to proceed with surgical intervention. We talked about surgical options as far as a Malerich procedure (distal scaphoid excision and styloid ostectomy) as well as more salvage procedure such as PRC or 4 corner fusion. At this point time given her young age she would like to do most minimal surgical approach with the least amount restrictions with hopes to have the maintenance of her range of motion and strength is much as possible. She does understand that proceeding with a distal scaphoid excision and partial radial ostectomy might not completely resolve her problems from the standpoint that she may need a more salvage procedure down the road however at this point time she would like to as prior stated maintain as much motion and strength as possible. This point time she is agreeable to proceed with left wrist distal scaphoid excision and radial styloid ostectomy. She understands agrees with plan. All questions. Consent was obtained and plan to proceed with surgery. Procedure: Patient seen evaluated in the preoperative holding area. Consent was reviewed with patient. The correct extremity was then marked. Patient was seen evaluated by the anesthesia department once cleared by anesthesia was taken back to the OR suite. Patient received regional anesthesia. Patient was then placed in supine position with the left hand on the armboard. A nonsterile tourniquet applied to the left upper extremity. Once appropriately anesthetized his head and all bony prominences were well-padded. She then had the left upper extremity was then prepped and draped in standard orthopedic fashion. She received appropriate preoperative final timeout performed. Esmarch tourniquet was used exsanguinate the left upper extremity tourniquet was insufflated 250 mmHg. Standard oblique incision starting with sutures along the first ray was then made. Sharp scalpel excision through skin and subcutaneous tissue utilized Littler dissection scissors to spread to identify the dorsal cutaneous branch of the superficial radial nerve. These were protected throughout the case. I then proceeded my dissection in line with the EPL tendon and this was appropriately mobilized and protected throughout the case. Deep to this. Dorsal branch of the radial artery was then identified and protected throughout the procedure. I then identified the ECRL tendon. At this point time directly visualized dorsal wrist capsule. I utilized a 25-gauge needle to confirm appropriate position for performing my capsulotomy. Once I placement spinal needle and confirmed with mini C arm the nonunion site. I then subsequently performed dorsal arthrotomy. I identified the nonunion site. Arthritis was noted at the radial styloid but the rest of the radiocarpal and scaphoid facet was intact with no arthritic changes. I subsequently then utilized a [place] protecting the neurovascular structures my assistant director of public works I then excised the distal scaphoid nonunion site. This was performed atraumatically. Care not to violate the RSC ligament. Once this was then excised attention was then turned towards the radial styloid osteophyte. I then utilized a rongeur and remove the distal aspect of the radial styloid. This was contoured appropriately. I then brought in the mini C arm and confirmed excision of the distal scaphoid and radial styloid. The wound bed was then thoroughly irrigated. I then performed a Evans shift no click was noted. No evidence of gross instability was noted. This point time the wound bed was then thoroughly irrigated. I then deflated the tourniquet. Hemostasis was maintained with manual pressure as well as bipolar electrocautery. I did utilize Gelfoam for interposition and hemostatic agent within the distal scaphoid excision site. The incision was then closed in layered fashion. With 3-0 Vicryl suture and then a running nylon suture for the skin. Incisions were then covered with Xeroform 4 x 4's ABD soft roll and a short arm splint was then applied to the left upper extremity. Patient was then taken to PACU in stable condition. Disposition patient taken to PACU in stable condition will receive appropriate discharge instructions as well as pain medication postoperatively. Patient will follow-up with me in office in 2 weeks. She understands she has any questions or concerns she may contact the office.
[2022-02-22 12:37] VITALS: BP 128/74; PULSE 75; RESP 15; O2SAT 97
[2022-02-22 12:42] VITALS: BP 132/70; PULSE 70; RESP 18; TEMP 36.1; O2SAT 96
--- NOTE | 2022-02-22 12:44 | ANE.PACU2 ---
Inpatient post-anesthesia follow up: Airway intact: Yes Vital signs: Temperature 97.0 F Pulse Rate 70 Respiratory Rate 18 Blood Pressure 132/70 Pulse Oximetry 96 Oxygen Delivery Me thod Room Air Oxygen Flow Rate Fraction of Inspir ed Oxygen Hydration adequate: Yes Nausea and vomiting: No Pain level: 1 Mental status: Baseline
[2022-02-22 12:47] VITALS: BP 121/74; PULSE 72; RESP 18; TEMP 36.2; O2SAT 92
== END 2022-02-22 13:21 | disposition home or self-care (01) ==
PROVIDERS: PCP Family Medicine Adult Medicine; Visit Provider Student in an Organized Health Care Education/Training Program
PROC: (CPT 25210; principal; 2022-02-22 11:05)
DX: S62.002A Unspecified fracture of navicular [scaphoid] bone of left wrist, initial encounter for closed fracture (principal); X58.XXXA Exposure to other specified factors, initial encounter; M19.132 Post-traumatic osteoarthritis, left wrist; J44.9 Chronic obstructive pulmonary disease, unspecified; Z99.81 Dependence on supplemental oxygen; F17.210 Nicotine dependence, cigarettes, uncomplicated
CPT/HCPCS: 25210; 73100; 76000; J0131; J0690; J1100; J1885; J2250; J2704; J2795; J3010; J7030

== ENCOUNTER 2022-02-26 07:41 | Emergency (ER) | payer MEDICARE, SELFPAY ==
[2022-02-26 07:47] VITALS: BP 147/81; PULSE 83; RESP 14; TEMP 36.7; O2SAT 93; BMI 21.7
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
[2022-02-26 08:18] VITALS: BP 147/81; PULSE 83; RESP 14; TEMP 36.7; O2SAT 93
== END 2022-02-26 08:19 | disposition home or self-care (01) ==
PROVIDERS: Emergency Provider Physician Assistant; PCP Family Medicine Adult Medicine
DX: M79.642 Pain in left hand (principal); F17.210 Nicotine dependence, cigarettes, uncomplicated; Z79.891 Long term (current) use of opiate analgesic
CPT/HCPCS: 99282

== ENCOUNTER → 2022-02-28 09:11 | Outpatient (BNVA) | payer MEDICARE, SELFPAY | PROVIDERS: PCP Family Medicine Adult Medicine; Visit Provider Student in an Organized Health Care Education/Training Program | DX: M79.642 Pain in left hand (principal); S62.009D Unspecified fracture of navicular [scaphoid] bone of unspecified wrist, subsequent encounter for fracture with routine healing; X58.XXXD Exposure to other specified factors, subsequent encounter | CPT/HCPCS: 73110 ==

== ENCOUNTER 2022-02-28 14:43 | Outpatient (CLI) | payer MEDICARE, SELFPAY | END 2022-02-28 14:44 | disposition home or self-care (01) | LOC: SPT 14:44 | PROVIDERS: PCP Family Medicine Adult Medicine; Visit Provider Student in an Organized Health Care Education/Training Program | DX: Z47.89 Encounter for other orthopedic aftercare (principal); M79.642 Pain in left hand; M19.132 Post-traumatic osteoarthritis, left wrist; S62.002D Unspecified fracture of navicular [scaphoid] bone of left wrist, subsequent encounter for fracture with routine healing; X58.XXXD Exposure to other specified factors, subsequent encounter | CPT/HCPCS: 97760; 99024; L3809 ==

== ENCOUNTER → 2022-03-06 10:25 | Outpatient (BNVA) | payer MEDICARE, SELFPAY | PROVIDERS: PCP Family Medicine Adult Medicine; Visit Provider Student in an Organized Health Care Education/Training Program | DX: Z98.890 Other specified postprocedural states (principal) | CPT/HCPCS: 99024 ==

== ENCOUNTER 2022-03-30 06:00 | Outpatient (RCR) | payer MEDICARE, SELFPAY | END 2022-04-22 23:59 | disposition home or self-care (01) | LOC: SOT 06:00 | PROVIDERS: PCP Family Medicine Adult Medicine; Visit Provider Student in an Organized Health Care Education/Training Program | DX: M25.832 Other specified joint disorders, left wrist (principal) | CPT/HCPCS: 97018; 97110; 97140; 97166 ==

== ENCOUNTER → 2022-04-20 13:16 | Outpatient (BNVA) | payer MEDICARE, SELFPAY | PROVIDERS: PCP Family Medicine Adult Medicine; Visit Provider Student in an Organized Health Care Education/Training Program | DX: M19.132 Post-traumatic osteoarthritis, left wrist (principal); S62.002S Unspecified fracture of navicular [scaphoid] bone of left wrist, sequela; X58.XXXS Exposure to other specified factors, sequela | CPT/HCPCS: 99024 ==

== ENCOUNTER 2022-04-23 06:00 | Outpatient (RCR) | payer MEDICARE, SELFPAY | END 2022-05-23 23:59 | disposition home or self-care (01) | LOC: SOT 06:00 | PROVIDERS: PCP Family Medicine Adult Medicine; Visit Provider Student in an Organized Health Care Education/Training Program | DX: M25.832 Other specified joint disorders, left wrist (principal) | CPT/HCPCS: 97022; 97110; 97140 ==

== ENCOUNTER 2022-04-24 00:40 | Emergency (ER) | payer MEDICARE, SELFPAY ==
[2022-04-24 00:50] VITALS: BP 106/59; PULSE 60; RESP 18; TEMP 36.6; O2SAT 96; BMI 21.6
[2022-04-24 01:15] VITALS: BP 127/63; PULSE 56; RESP 16; O2SAT 95
[2022-04-24] MEDS: ondansetron 2 mg/ML SDV 2 mL 4 MG IVP (01:17)
[2022-04-24] MEDS: sodium chloride 0.9% 1,000 ML 999 ML IV ×2 (01:17→02:23)
[2022-04-24 01:19] LABS: Basophils % 0.5 %; Eosinophils # 0.1 10^3/uL (0.0-0.8); Eosinophils % 1.5 %; Hematocrit 42.2 % (37.0-47.0); Hemoglobin 13.9 g/dL (11.5-15.3); Lymphocytes # 3.7 10^3/uL (0.8-4.8); Lymphocytes % 49.6 %; Mean Corpuscular HGB Conc 32.9 g/dL (30.0-36.0); Mean Corpuscular Hemoglobin 34.2 pg (28.0-34.0); Mean Corpuscular Volume 103.7 fl (81-99); Monocytes # 0.5 10^3/uL (0.2-0.9); Monocytes % 6.8 %; Neutrophils # 3.05 10^3/uL (1.8-7.7); Neutrophils % 41.3 %; Nucleated Red Blood Cells % 0 %; Platelet Count 228 10^3/cmm (130-400); Red Blood Count 4.07 10^6/uL (4.1-5.3); Red Cell Distribution Width 13.2 % (12.1-15.1); White Blood Count 7.4 10^3/uL (4.0-10.0)
[2022-04-24 01:29] LABS: INR 0.95 (0.8-1.2)
[2022-04-24] MEDS: diphenoxylate/atropine Tablet 2 TAB PO (01:30)
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
[2022-04-24 01:43] LABS: Alanine Aminotransferase 19 U/L (0-33); Albumin Level 4.2 g/dL (3.5-5.2); Alkaline Phosphatase 127 U/L (35-105); Aspartate Amino Transferase 20 U/L (0-32); Blood Urea Nitrogen 7 mg/dL (6-20); Calcium 8.5 mg/dL (8.5-10.5); Carbon Dioxide 24 mmol/L (22-29); Chloride 102 mmol/L (98-107); Globulin 2.1 g/dL (1.3-4.6); Glomerular Filtration Rate 76.6 mL/min (90-130); Glucose 93 mg/dL (65-115); Lipase 21 U/L (13-60); Osmolality Calculated 284 mOsm/kg (285-295); Sodium 138 mmol/L (136-145); Total Bilirubin 0.2 mg/dL (0.15-1.2); Total Protein 6.3 g/dL (6.6-8.7)
[2022-04-24 01:45] LABS: Anion Gap 15.4 (5-19); Potassium 3.4 mmol/L (3.5-5.1)
== END 2022-04-24 03:12 | disposition home or self-care (01) ==
PROVIDERS: Emergency Provider Emergency Medicine; PCP Family Medicine Adult Medicine
DX: R11.11 Vomiting without nausea (principal); R19.7 Diarrhea, unspecified; F17.210 Nicotine dependence, cigarettes, uncomplicated; J44.9 Chronic obstructive pulmonary disease, unspecified
CPT/HCPCS: 80053; 83690; 85025; 85610; 96361; 96374; 99284; J2405; J7030

== ENCOUNTER 2022-06-12 20:41 | Emergency (ER) | payer MEDICARE, SELFPAY ==
[2022-06-12 20:52] VITALS: BP 121/76; PULSE 68; RESP 18; TEMP 37.1; O2SAT 96; BMI 21.7
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
[2022-06-12] MEDS: clindamycin 150 mg Capsule 300 MG PO (21:49)
[2022-06-12 21:52] VITALS: RESP 14
[2022-06-12] MEDS: morphine 4 mg/mL SDV 1 mL IM (21:52)
== END 2022-06-12 21:57 | disposition home or self-care (01) ==
PROVIDERS: Emergency Provider Physician Assistant; PCP Family Medicine Adult Medicine
DX: K08.89 Other specified disorders of teeth and supporting structures (principal); F17.210 Nicotine dependence, cigarettes, uncomplicated; J44.9 Chronic obstructive pulmonary disease, unspecified
CPT/HCPCS: 96372; 99284; J2270

== ENCOUNTER 2022-06-21 19:24 | Emergency (ER) | payer MEDICARE, SELFPAY ==
[2022-06-21 19:44] VITALS: BP 143/77; PULSE 67; RESP 15; TEMP 36.7; O2SAT 96; BMI 20.5
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
== END 2022-06-21 21:49 | disposition home or self-care (01) ==
PROVIDERS: Emergency Provider Nurse Practitioner Family; PCP Family Medicine Adult Medicine
DX: H11.32 Conjunctival hemorrhage, left eye (principal); B37.9 Candidiasis, unspecified; F17.210 Nicotine dependence, cigarettes, uncomplicated; J44.9 Chronic obstructive pulmonary disease, unspecified; M67.88 Other specified disorders of synovium and tendon, other site
CPT/HCPCS: 99283

== ENCOUNTER → 2022-06-22 14:35 | Outpatient (BNVA) | payer MEDICARE, SELFPAY | PROVIDERS: PCP Family Medicine Adult Medicine; Visit Provider Student in an Organized Health Care Education/Training Program | DX: M19.132 Post-traumatic osteoarthritis, left wrist (principal); S62.002S Unspecified fracture of navicular [scaphoid] bone of left wrist, sequela; X58.XXXS Exposure to other specified factors, sequela | CPT/HCPCS: 73110; 99213 ==

== ENCOUNTER 2022-07-26 12:57 | Emergency (ER) | payer MEDICARE, SELFPAY ==
[2022-07-26 13:04] VITALS: BMI 19.4
[2022-07-26 13:10] VITALS: BP 162/79; PULSE 84; RESP 18; TEMP 36.8; O2SAT 96
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
--- NOTE | 2022-07-26 13:31 | XR_ITS ---
WS: [id number] XR lumbar spine 2-3V* [id number] REASON FOR EXAM: low back pain, left sided parasthesia FINDINGS: The lumbar spine appears relatively unchanged compared to previous examination of 12/21/2016. Moderate rotatory scoliosis convex right. Normal lordosis. Mild compression deformity of the superior endplate of L2. Intervertebral disc spaces are intact and relatively well-preserved. No spondylolysis or significant spondylolisthesis. XR/XR lumbar spine 2-3V* [id number] IMPRESSION: Degenerative spondylosis of the lumbar spine relatively stable. No acute abnorm ality is identified.
--- NOTE | 2022-07-26 13:31 | CT_ITS ---
WS: [id number] CT HEAD NONCONTRAST HISTORY: left upper and lower ext paresthesia, weakness TECHNIQUE: Contiguous axial imaging performed through the brain in 2.5 mm imaging. Bone and soft tiss ue windows. Sagittal and coronal reformats reviewed. All CT scans at [facility] use at least one of these dose optimization techniques: automated exposure control; mA and/or kV adjustment per pa tient size (includes targeted exams where dose is matched to clinical indication); or iterative recon struction. DLP: 1022.18 mGy.cm COMPARISON: 11/30/2020 No acute intracranial hemorrhage, midline shift or mass effect. No atrophy or prior infarcts or herniation. Ventricles: Normal size with no hydrocephalus. Prior craniectomy for Chiari malformation decompression. Paranasal sinuses: As visualized are clear. Mastoid air cells: Well pneumatized. Calvarium and scalp: Skull is intact with no soft tissue edema or swelling. CT/CT head wo con* [id number] IMPRESSION: 1. No acute intracranial hemorrhage or edema. 2. Prior occipital craniectomy for Chiari decompression.
--- NOTE | 2022-07-26 13:31 | XR_ITS ---
WS: [email or web address] XR cervical spine 3V* [id number] REASON FOR EXAM: neck pain, left sided parasthesia FINDINGS: On the AP view there is scoliotic curve of the cervical spine convex to the right. On the lateral vie w there is mild straightening of the normal lordosis of the cervical spine. There is mild to moderate narrowing of the intervertebral disc spaces C3-C6 associated with small ant erior and uncinate osteophytes. Normal facet joint alignment. There is 2 to 3 mm of anterolisthesis of C4 on C5. The narrowing of the C4-C5 disc space and the anterolisthesis of C4 on C5 has developed since the pre vious examination of 05/07/2021. XR/XR cervical spine 3V* [id number] IMPRESSION: Progressive degenerative spondylosis in the cervical spine as above.
[2022-07-26 14:14] LABS: Add Urine Microscopic? NO; Charge for UA Resulting for Rev
[2022-07-26 14:19] LABS: Basophils % 0.6 %; Eosinophils # 0.1 10^3/uL (0.0-0.8); Eosinophils % 2.2 %; Hematocrit 44.9 % (37.0-47.0); Hemoglobin 14.5 g/dL (11.5-15.3); Lymphocytes # 2.5 10^3/uL (0.8-4.8); Lymphocytes % 45.8 %; Mean Corpuscular HGB Conc 32.3 g/dL (30.0-36.0); Mean Corpuscular Hemoglobin 34.5 pg (28.0-34.0); Mean Corpuscular Volume 106.9 fl (81-99); Mean Platelet Volume 9.6 fL (7.4-10.4); Monocytes # 0.4 10^3/uL (0.2-0.9); Monocytes % 6.5 %; Neutrophils # 2.39 10^3/uL (1.8-7.7); Neutrophils % 44.7 %; Nucleated Red Blood Cells % 0 %; Platelet Count 263 10^3/cmm (130-400); Red Cell Distribution Width 12.6 % (12.1-15.1); White Blood Count 5.4 10^3/uL (4.0-10.0)
[2022-07-26 14:48] LABS: Bilirubin Urine Neg (Negative); Blood Urine Neg (Negative); Glucose Urine UA Norm (Normal); Ketones Urine Negative (Negative); Leukocyte Esterase Urine Negative (Negative); Nitrate Urine Negative (Negative); Protein Urine Neg (Negative); Urine Appearance Clear (CLEAR); Urine Color Light yellow (Yellow); Urobilinogen Urine Norm (Negative); pH Urine 5 (5-7)
[2022-07-26 14:52] LABS: Alanine Aminotransferase 20 U/L (0-33); Albumin Level 4.6 g/dL (3.5-5.2); Alkaline Phosphatase 138 U/L (35-105); Anion Gap 13.9 (5-19); Aspartate Amino Transferase 27 U/L (0-32); Blood Urea Nitrogen 7 mg/dL (6-20); Calcium 8.8 mg/dL (8.5-10.5); Carbon Dioxide 27 mmol/L (22-29); Chloride 102 mmol/L (98-107); Globulin 2.9 g/dL (1.3-4.6); Glomerular Filtration Rate 88.9 mL/min (90-130); Glucose 72 mg/dL (65-115); Magnesium 2.1 mg/dL (1.7-2.3); Osmolality Calculated 285 mOsm/kg (285-295); Potassium 3.9 mmol/L (3.5-5.1); Sodium 139 mmol/L (136-145); Total Bilirubin 0.3 mg/dL (0.15-1.2); Total Protein 7.5 g/dL (6.6-8.7)
[2022-07-26] MEDS: LORazepam 1 mg Tablet PO (15:21)
== END 2022-07-26 15:36 | disposition home or self-care (01) ==
PROVIDERS: Emergency Provider Emergency Medicine; PCP Family Medicine Adult Medicine
DX: R20.2 Paresthesia of skin (principal); G62.9 Polyneuropathy, unspecified; J44.9 Chronic obstructive pulmonary disease, unspecified; F17.210 Nicotine dependence, cigarettes, uncomplicated
CPT/HCPCS: 36415; 70450; 72040; 72100; 80053; 81003; 83735; 85025; 86141; 99285

== ENCOUNTER 2022-10-05 14:51 | Outpatient (CLI) | payer MEDICARE, SELFPAY ==
--- NOTE | 2022-10-05 15:03 | XR_ITS ---
WS: [email or web address] XR cervical spine 3V* [id number] REASON FOR EXAM: CERVICAL STENOSIS OF SPINE FINDINGS: Relatively normal curvatures of the cervical spine. Anterior plate and screw fixation with interbody fusion device C5-C6. Surgical appliances are intact and in proper position and alignment. 2 to 3 mm anterolisthesis of C4 on C5. No change from 07/26/2022. XR/XR cervical spine 3V* [id number] IMPRESSION: Post anterior fusion cervical spine as above.
== END 2022-10-05 14:52 | disposition home or self-care (01) ==
LOC: RAD 14:58
PROVIDERS: PCP Family Medicine Adult Medicine; Visit Provider Surgery
DX: M48.02 Spinal stenosis, cervical region (principal); Z98.1 Arthrodesis status; R68.89 Other general symptoms and signs
CPT/HCPCS: 72040; 84443

== ENCOUNTER → 2022-10-19 07:41 | Outpatient (BNVA) | payer MEDICARE, SELFPAY | PROVIDERS: PCP Family Medicine Adult Medicine; Visit Provider Student in an Organized Health Care Education/Training Program | DX: M19.132 Post-traumatic osteoarthritis, left wrist (principal); S62.002S Unspecified fracture of navicular [scaphoid] bone of left wrist, sequela; W19.XXXS Unspecified fall, sequela | CPT/HCPCS: 73110; 99213 ==

== ENCOUNTER 2022-10-22 10:04 | Emergency (ER) | payer MEDICARE, MEDICAID, SELFPAY ==
[2022-10-22 10:08] VITALS: BP 127/78; PULSE 72; RESP 24; TEMP 34.7; O2SAT 94; BMI 18.8
--- NOTE | 2022-10-22 10:19 | XRR_ITS ---
PROCEDURE INFORMATION: Exam: XR Chest Exam date and time: 10/22/2022 10:29 AM Age: 47 years old Clinical indication: Shortness of breath. TECHNIQUE: Imaging protocol: Radiologic exam of the chest. Views: 1 view. COMPARISON: CR XR chest 1V portable [id number] 04/23/2021 1:43 PM FINDINGS: Lungs: No pneumonia or pulmonary edema. Pleural spaces: No pleural effusion or pneumothorax. Heart/Mediastinum: The cardiac silhouette is not enlarged. The mediastinal contours are normal. Bones/joints: No acute osseous abnormality. XR/XR chest 1V portable [id number] IMPRESSION: No acute finding.
--- NOTE | 2022-10-22 10:20 | ED_ITS ---
HPI - SOB/Dyspnea General: Chief Complaint: Shortness of Breath/Dyspnea Stated Complaint: SOB Time Seen by Provider: 10/22/22 10:05 Source: patient and family Mode of arrival: wheelchair Limitations: no limitations History of Present Illness: HPI Narrative: Patient is a 47-year-old female with a history of COPD normally on 3 L of oxygen continuously here for complaints of shortness of breath over the past few days. Patient arrives not wearing her oxygen. She is satting at 94% without it. Individual that accompanies patient states that she recently was ill with pneumonia and wonders if patient now could be sick with similar illness. She has had a cough. 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 She states her COPD is being managed by her PCP. She has not been running fevers. She states she can feel/hear herself wheezing. She has not had any nasal con gestion/runny nose/sore throat. No history of congestive heart failure. She has not noticed any PND, orthopnea, or lower extremity swelling. MD elicited complaint: shortness of breath Pertinent past history: COPD Onset (ago): day(s) Timing: constant Severity: moderate Exacerbating factors: exertion Relieving factors: nothing Known history of: COPD Associated symptoms: Deny abdominal pain, chest pain, dizziness, extremity pain, fever(s), hemoptysis, lightheadedness, nausea, palpitations, syncope or vomiting Treatment prior to arrival: none Related Data: Home oxygen amount: 3 liters Review of Systems Const: Denies: fever(s), chills, body aches, fatigue or malaise ENMT: Denies: throat pain, odynophagia, ear or mastoid pain, nasal discharge, nasal congestion or sinus pain Card: Reports: dyspnea on exertion (chronic); Denies: chest pain, palpitations, irregular heart rhythm, edema, swelling of feet/ankles, lightheadedness, syncope, pre-syncope, leg pain with exertion or acrocyanosis Resp: Reports: dyspnea, non-productive cough and wheezing; Denies: hemoptysis GI: Denies: abdominal pain, nausea, vomiting or diarrhea : Denies: flank pain or dysuria Musc: Denies: neck pain, back pain, extremity pain, extremity swelling, joint pain or joint swelling Skin/Breast: Denies: rash Neuro: Denies: headache(s), numbness in extremities, weakness in extremities, sensory changes, difficulty walking or dizziness PFSH ED PFSH: Medical History Anxiety and depression Bipolar disorder with severe mark Cervical dystonia Chronic pain management Dr. Kessler Chronic neck pain Chronic pain management Dr. 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 Adarsh Stone Weight loss of more than 10% body weight Surgical History History of brain surgery brain surgery for a Chiari malformation repair in 2005. History of cholecystectomy History of colonoscopy with polypectomy 2014 History of esophagogastroduodenoscopy (EGD) History of hysterectomy Social History Smoking and tobacco status: current every day smoker (0.5ppd) cigarettes Packs smoked per day: 0.25 Years cigarettes smoked: 30 Quit status (tobacco): has tried quititng Number of times tried to quit tobacco: 10 Second hand smoke exposure: Yes Smoking risk assessment/counseling performed?: Yes Alcohol intake: never Desire information about alcohol rehabilitation?: No Counseling given: No Substance/Drug Use: never Desire information about substance/drug rehabilitation?: No Counseling given: No Lives independently: Yes Household members: family Housing: Apartment Marital status: Current occupational status: disabled Pets and animals: Yes Do you think of yourself as: Straight/Heterosexual Current gender identity: Female Physical Exam Const: COMMON NORMALS: no acute distress, patient oriented x3, no limitations and alert GENERAL APPEARANCE: cooperative NUTRITIONAL APPEARANCE: thin ORIENTATION/CONSCIOUSNESS: Yes awake, Yes oriented to person, Yes oriented to place and Yes oriented to time HENMT: COMMON NORMALS: normocephalic and atraumatic HEAD & SCALP: normal to inspection, normocephalic and atraumatic THROAT: posterior oropharynx normal Eye: GENERAL EYE: appearance normal, both eyes and all related structures Neck/C-Spine: COMMON NORMALS: full ROM, no lymphadenopathy, supple, no meningeal signs and no JVD Chest: COMMONS NORMALS: normal inspection of the chest and normal palpation of entire chest wall Resp: COMMON NORMALS: normal respiratory effort EFFORT & INSPECTION: Yes respiratory distress (tachypneic), No labored, No Actively coughing, No retractions and Yes uses accessory muscles AUSCULTATION: wheezes throughout Cardio: COMMON NORMALS: no JVD, regular rate and regular rhythm RATE: regular rate RHYTHM: regular rhythm GI: COMMON NORMALS: Normal to inspection, nondistended, normoactive bowel sounds present, Soft to palpation, non-tender, No hepatosplenomegaly present and no masses PALPATION: Yes Soft to palpation and Yes No hepatosplenomegaly present : COMMON NORMALS: Yes no CVA tenderness BLADDER/KIDNEY EXAM: Yes no CVA tenderness Back/Pelvis: COMMON NORMALS: no CVA tenderness and thoracic and lumbar spine normal to inspection Extremity: COMMON NORMALS: normal to inspection, capillary refill normal, no joint enlargement, no clubbing, cyanosis or edema, no calf tenderness and no pedal edema Neuro: ARNOLD COMA SCALE: document GCS findings Arnold coma scale eye opening: Spontaneous [place] coma scale verbal response: Orientated [place] coma scale motor response: Obey commands [place] coma scale total score: 15 COMMON NORMALS: patient oriented x3, moves all extremities, no focal motor deficits and no sensory deficits noted SENSORIUM/ORIENTATION: Yes alert, Yes oriented to person, Yes oriented to place and Yes oriented to time MENINGEAL SIGNS: Yes no meningeal signs Skin: COMMON NORMALS: no rashes or lesions noted GENERAL SKIN EXAM: no rashes or lesions noted Course Vital Signs: Vital signs: Vital Signs Temperature 94.4 F L 10/22/22 10:08 Pulse Rate 73 10/22/22 10:51 Respiratory Rate 22 H 10/22/22 10:51 Blood Pressure 127/78 10/22/22 10:08 Pulse Oximetry 94 10/22/22 11:13 Oxygen Delivery Me thod Room Air 10/22/22 10:51 MDM - SOB/Dyspnea Medical Decision Making I was alerted by nursing staff that individual accompanying patient was standing outside of the room disgruntled stating that they want to leave AMA due to length of time of treatment and not being seen by a doctor. I immediately went and spoke to the patient and reintroduced myself and explained to them that I am a physician university administrative assistant and that I am their provider for the visit. Individual seemed very agitated that they are still here . I explained to them how we were still awaiting some blood work but that course shouldn't be much longer. She has already received her breathing treatment. IV Solu-Medrol was initially ordered however we are on a national shortage of this so steroid had to be changed which slightly delayed treatment. At time of this conversation patient had been in the ED a total of 60 minutes. Individual accompanying patient did most of the talking while the patient herself just intermittently rolled her eyes. She stated we just want to leave and go home . I kindly explained to the patient herself that I would like her to be treated for her issue today but that if she would like to leave then I would like her to verbally express this and not the individual accompanying her. Patient just shrugged her shoulders and said I guess we'll go . AMA form will be provided. Lab Data 10/22/22 10:29 10/22/22 10:29 Labs/Radiology: Laboratory Results WBC 7.4 10^3/uL (4.0-10.0) 10/22/22 10:29 RBC 3.95 10^6/uL (4.1-5.3) L 10/22/22 10:29 Hgb 13.6 g/dL (11.5-15.3) 10/22/22 10:29 Hct 41.1 % (37.0-47.0) 10/22/22 10:29 MCV 104.1 fl (81-99) H 10/22/22 10:29 MCH 34.4 pg (28.0-34.0) H 10/22/22 10:29 MCHC 33.1 g/dL (30.0-36.0) 10/22/22 10:29 RDW 12.6 % (12.1-15.1) 10/22/22 10:29 Plt Count 265 10^3/cmm (130-400) 10/22/22 10:29 MPV 10.0 fL (7.4-10.4) 10/22/22 10:29 Neut % (Auto) 62.1 % 10/22/22 10:29 Lymph % (Auto) 30.0 % 10/22/22 10:29 [place] % (Auto) 4.9 % 10/22/22 10:29 Eos % (Auto) 2.3 % 10/22/22 10:29 Baso % (Auto) 0.4 % 10/22/22 10:29 Neut # (Auto) 4.57 10^3/uL (1.8-7.7) 10/22/22 10: Lymph # (Auto) 2.2 10^3/uL (0.8-4.8) 10/22/22 10:29 [place] # (Auto) 0.4 10^3/uL (0.2-0.9) 10/22/22 10:29 Eos # (Auto) 0.2 10^3/uL (0.0-0.8) 10/22/22 10: Baso # (Auto) 0.0 10^3/uL (0.0-0.1) 10/22/22 10: Nucleated RBC % (auto) 0 % 10/22/22 10: Nucleated RBCs # 0.0 /100WBC 10/22/22 10:29 Sodium 138 mmol/L (136-145) 10/22/22 10:29 Potassium 3.8 mmol/L (3.5-5.1) 10/22/22 10: Chloride 105 mmol/L (98-107) 10/22/22 10: Anion Gap 15.8 (5-19) 10/22/22 10:29 BUN 7 mg/dL (6-20) 10/22/22 10: Creatinine 0.7 mg/dL (0.5-0.9) 10/22/22 10:29 Glucose 111 mg/dL (65-115) 10/22/22 10:29 Calculated Osmolality 285 mOsm/kg (285-295) 10/22/22 10:29 Calcium 8.6 mg/dL (8.5-10.5) 10/22/22 10:29 Total Bilirubin 0.3 mg/dL (0.15-1.2) 10/22/22 10:29 AST 20 U/L (0-32) 10/22/22 10:29 ALT 18 U/L (0-33) 10/22/22 10:29 Total Protein 6.7 g/dL (6.6-8.7) 10/22/22 10: Albumin 4.2 g/dL (3.5-5.2) 10/22/22 10:29 Globulin 2.5 g/dL (1.3-4.6) 10/22/22 10:29 Discharge Plan Discharge Patient Disposition: Left Against Medical Advice Clinical Impression: COPD (chronic obstructive pulmonary disease) Condition: Stable Prescriptions: No Action (DME) Oxygen 3 liters See Rx Instructions .Route .MEDSUPPLY Qty: 1 0RF Rx Instructions: As directed ibuprofen 400 mg tablet 800 mg PO TID fluconazole [Diflucan] 150 mg tablet 150 mg PO Q3D Qty: 2 0RF Rx Instructions: may repeat second dose 72 hrs after first dose if symptoms persist fluconazole [Diflucan] 150 mg tablet 150 mg PO Q3D 1 Days Qty: 1 0RF fluconazole [Diflucan] 150 mg tablet 150 mg PO DAILY Qty: 1 0RF albuterol sulfate 90 mcg/actuation HFA aerosol inhaler 1 inh inhalation DAILY Qty: 8.5 5RF Rx Instructions: USE 2 PUFFS EVERY 6 HOURS NEEDED FOR SHORTNESS OF BREATH OR WHEEZING [id number] [Esgic] 50-325-40 mg tablet 1 tab PO TID PRN (Reason: Chronic headaches) Qty: 90 5RF trazodone 100 mg tablet See Rx Instructions .ROUTE .COMPLEX Qty: 60 5RF Dose Instruction: TAKE 1/2 TABLET BY MOUTH EVERY MORNING AND TAKE 1 & 1/2 TABLETS BY MOUTH AT BEDTIME Rx Instructions: TAKE 1/2 TABLET BY MOUTH EVERY MORNING AND TAKE 1 & 1/2 TABLETS BY MOUTH AT BEDTIME Stiolto Respimat 2.5-2.5 mcg/actuation mist See Rx Instructions .ROUTE .COMPLEX Qty: 4 5RF Dose Instruction: USE 2 PUFFS EVERY DAY FOR COPD Rx Instructions: USE 2 PUFFS EVERY DAY FOR COPD montelukast 10 mg tablet See Rx Instructions .ROUTE .COMPLEX Qty: 30 5RF Dose Instruction: TAKE ONE TABLET BY MOUTH EVERY DAY Rx Instructions: TAKE ONE TABLET BY MOUTH EVERY DAY lamotrigine 200 mg tablet See Rx Instructions .ROUTE .COMPLEX Qty: 60 5RF Dose Instruction: TAKE 1 TABLET BY MOUTH TWO TIMES DAILY Rx Instructions: TAKE 1 TABLET BY MOUTH TWO TIMES DAILY ondansetron HCl 4 mg tablet 4 mg PO Q6H PRN (Reason: nausea and vomiting) Qty: 14 0RF citalopram 40 mg tablet 40 mg PO QAM Rx Instructions: 340 B Meds Calcium 500 500 mg calcium (1,250 mg) Tablet 500 mg PO DAILY Vitamin D3 25 mcg (1,000 unit) Capsule 25 mcg PO DAILY potassium gluconate 595 mg (99 mg) Tablet 595 mg PO DAILY Daily Multiple 18-400 mg-mcg Tablet 1 tab PO DAILY elderberry fruit 350 mg Capsule 350 mg PO DAILY Referrals: Hever Lee MD [Primary Care Provider] - Coding Level of Care Code ED Muffle Worker for Shiv Trevizo
[2022-10-22] MEDS: ipratropium-albuterol 3 mL Neb INHALATION (10:42)
[2022-10-22 10:43] VITALS: PULSE 70; RESP 22; O2SAT 94
[2022-10-22 10:46] LABS: Basophils % 0.4 %; Eosinophils # 0.2 10^3/uL (0.0-0.8); Eosinophils % 2.3 %; Hematocrit 41.1 % (37.0-47.0); Hemoglobin 13.6 g/dL (11.5-15.3); Lymphocytes # 2.2 10^3/uL (0.8-4.8); Mean Corpuscular HGB Conc 33.1 g/dL (30.0-36.0); Mean Corpuscular Hemoglobin 34.4 pg (28.0-34.0); Mean Corpuscular Volume 104.1 fl (81-99); Monocytes # 0.4 10^3/uL (0.2-0.9); Monocytes % 4.9 %; Neutrophils # 4.57 10^3/uL (1.8-7.7); Neutrophils % 62.1 %; Nucleated Red Blood Cells % 0 %; Platelet Count 265 10^3/cmm (130-400); Red Blood Count 3.95 10^6/uL (4.1-5.3); Red Cell Distribution Width 12.6 % (12.1-15.1); White Blood Count 7.4 10^3/uL (4.0-10.0)
[2022-10-22 10:51] VITALS: PULSE 73; RESP 22; O2SAT 94
[2022-10-22 11:13] VITALS: O2SAT 94
--- NOTE | 2022-10-22 11:13 | PC.NURSE ---
PT requested to sign out AMA. Maura ESCALANTE notified and advised PT to stay PT refused.
[2022-10-22 11:14] LABS: Alanine Aminotransferase 18 U/L (0-33); Albumin Level 4.2 g/dL (3.5-5.2); Alkaline Phosphatase 133 U/L (35-105); Anion Gap 15.8 (5-19); Aspartate Amino Transferase 20 U/L (0-32); Blood Urea Nitrogen 7 mg/dL (6-20); Calcium 8.6 mg/dL (8.5-10.5); Carbon Dioxide 21 mmol/L (22-29); Chloride 105 mmol/L (98-107); Globulin 2.5 g/dL (1.3-4.6); Glomerular Filtration Rate 88.9 mL/min (90-130); Glucose 111 mg/dL (65-115); Osmolality Calculated 285 mOsm/kg (285-295); Potassium 3.8 mmol/L (3.5-5.1); Sodium 138 mmol/L (136-145); Total Bilirubin 0.3 mg/dL (0.15-1.2); Total Protein 6.7 g/dL (6.6-8.7)
[2022-10-22 11:20] LABS: Procalcitonin 0.04 ng/mL (0-0.5)
== END 2022-10-22 11:14 | disposition left against medical advice (07) ==
PROVIDERS: Emergency Provider Physician Assistant; PCP Family Medicine Adult Medicine
DX: J44.9 Chronic obstructive pulmonary disease, unspecified (principal); Z53.21 Procedure and treatment not carried out due to patient leaving prior to being seen by health care provider; F17.210 Nicotine dependence, cigarettes, uncomplicated
CPT/HCPCS: 71045; 80053; 84145; 85025; 94640; 99284

== ENCOUNTER 2022-12-24 01:00 | Emergency (ER) | payer MEDICARE, MEDICAID, SELFPAY ==
[2022-12-24 01:07] VITALS: BP 106/62; PULSE 67; RESP 18; TEMP 36.6; O2SAT 97; BMI 16.2
--- NOTE | 2022-12-24 01:36 | XRR_ITS ---
PROCEDURE INFORMATION: Exam: XR Chest Exam date and time: 12/24/2022 1:47 AM Age: 47 years old Clinical indication: Patient HX: General weakness. History of copd. TECHNIQUE: Imaging protocol: Radiologic exam of the chest. Views: 1 view. COMPARISON: CR XR chest 1V portable [id number] 10/22/2022 10:29 AM FINDINGS: Lungs: Lungs Pleural spaces: Unremarkable. No pleural effusion. No pneumothorax. Heart/Mediastinum: Unremarkable. No cardiomegaly. Bones/joints: No acute osseous abnormality. XR/XR chest 1V portable [id number] IMPRESSION: No acute findings.
--- NOTE | 2022-12-24 01:36 | CTR_ITS ---
PROCEDURE INFORMATION: Exam: CT Head Without Contrast Exam date and time: 12/24/2022 1:58 AM Age: 47 years old Clinical indication: Dizziness and other: General weakness; Prior surgery; Surgery date: 6+ months; Surgery type: Surgery for chiari malformation; Patient HX: C/O severe dizziness and general weakness TECHNIQUE: Imaging protocol: Computed tomography of the head without contrast. Radiation optimization: All CT scans at this facility use at least one of these dose optimization techniques: automated exposure control; mA and/or kV adjustment per patient size (includes targeted exams where dose is matched to clinical indication); or iterative reconstruction. REPORTING DATA: Count of CT and Cardiac NM exams in prior 12 months: This patient has received 2 known CTs and 0 known cardiac nuclear medicine studies in the 12 months prior to the current study. COMPARISON: CT head wo contrast 07/26/2022 1:40 PM RADIATION DOSE METRICS: Total DLP (mGy-cm): 960.79 FINDINGS: Brain: No acute intracranial hemorrhage, acute large territory infarct, or obvious mass lesion. No significant white matter disease. Unchanged low-lying cerebellar tonsils, incompletely imaged. Cerebral ventricles: No ventriculomegaly. Paranasal sinuses: Visualized sinuses are unremarkable. No fluid levels. Mastoid air cells: Visualized mastoid air cells are well aerated. Bones/joints: Stable suboccipital craniectomy for Chiari malformation. Calvarium is otherwise intact and unremarkable. Soft tissues: Unremarkable. CT/CT head wo con* [id number] IMPRESSION: 1. No acute intracranial abnormality identified. 2. Stable suboccipital craniectomy for Chiari malformation.
--- NOTE | 2022-12-24 01:37 | ECG_ITS ---
[facility] Test Date: 2022-12-24 Pat Name: Jazmín Shaw Department: Room: Gender: Female Clinic Lpn: : 1975 Requested By: Akilah Leija Order Number: [id number] Juan MD: Jose Ahuja M.D. Measurements Intervals [place] Rate: 58 P: 84 MD: 130 QRS: 82 QRSD: 86 T: 65 QT: 411 QTc: 404 Interpretive Statements SINUS BRADYCARDIA Compared to ECG 10/29/2019 20:05:54 Sinus rhythm no longer present Electronically Signed On 12-24-2022 9:27:10 CDT by Jose Ahuja M.D. [email or web address]
--- NOTE | 2022-12-24 01:47 | W.ED.DIZZY ---
HPI - Dizziness General: Chief Complaint: Dizziness Stated Complaint: dizziness Time Seen by Provider: 12/24/22 01:01 Source: patient Mode of arrival: ambulatory Limitations: no limitations History of Present Illness: HPI Narrative: 47-year-old female states that she has been having generalized weakness along with dizziness. She states she has had some increased weakness confusion has been going on for months states today she had some difficulty walking due to her weakness she denies any room spinning no slurred speech no focal deficits states she just feels very generally weak and ill denies any pain anywhere Associated symptoms: Reports malaise; Denies chest pain, chills, headache(s), nausea or vomiting Review of Systems Const: Reports: change in weight, fatigue and malaise; Denies: fever(s) or chills Eyes: Denies: blurry vision or eye discomfort ENMT: Denies: throat pain or dental pain Card: Denies: chest pain Resp: Denies: dyspnea GI: Denies: abdominal pain, nausea, vomiting or diarrhea Musc: Denies: neck pain or back pain Skin/Breast: Denies: rash Neuro: Reports: weakness in extremities and dizziness; Denies: headache(s) PFSH ED PFSH: Medical History Anxiety and depression Bipolar disorder with severe mark Cervical dystonia Chronic pain management Dr. Kessler Chronic neck pain Chronic pain management Dr. 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 Adarsh Stone Tremor Weight loss of more than 10% body weight Surgical History History of brain surgery brain surgery for a Chiari malformation repair in 2005. History of cholecystectomy History of colonoscopy with polypectomy 2014 History of esophagogastroduodenoscopy (EGD) History of hysterectomy Social History Smoking and tobacco status: current every day smoker (0.5ppd) cigarettes Packs smoked per day: 0.25 Years cigarettes smoked: 30 Quit status (tobacco): has tried quititng Number of times tried to quit tobacco: 10 Second hand smoke exposure: Yes Smoking risk assessment/counseling performed?: Yes Alcohol intake: never Desire information about alcohol rehabilitation?: No Counseling given: No Substance/Drug Use: never Desire information about substance/drug rehabilitation?: No Counseling given: No Lives independently: Yes Household members: family Housing: Apartment Marital status: Current occupational status: disabled Pets and animals: Yes Do you think of yourself as: Straight/Heterosexual Current gender identity: Female Physical Exam Const: COMMON NORMALS: patient oriented x3 HENMT: COMMON NORMALS: normocephalic and atraumatic HEAD & SCALP: normocephalic and atraumatic Eye: COMMON NORMALS: Equal, round and reactive pupils present and EOMs intact bilaterally PUPIL: Yes Equal, round and reactive pupils present Neck/C-Spine: COMMON NORMALS: full ROM and supple Chest: COMMONS NORMALS: normal inspection of the chest and normal palpation of entire chest wall Resp: COMMON NORMALS: normal respiratory effort, No retractions, No use of accessory muscles and clear to auscultation bilaterally AUSCULTATION: clear to auscultation bilaterally Cardio: COMMON NORMALS: regular rate, regular rhythm and No murmurs present (Cardio) RATE: regular rate RHYTHM: regular rhythm GI: COMMON NORMALS: Normal to inspection, nondistended, normoactive bowel sounds present, Soft to palpation, non-tender and no masses PALPATION: Yes Soft to palpation Extremity: COMMON NORMALS: normal to inspection and full ROM Neuro: COMMON NORMALS: patient oriented x3, moves all extremities and no focal motor deficits Psych: COMMON NORMALS: mental status grossly normal, Normal thought process present and cooperative THOUGHT PROCESS: Normal thought process present Skin: COMMON NORMALS: no rashes or lesions noted and no wounds GENERAL SKIN EXAM: no rashes or lesions noted Course Vital Signs: Vital signs: Vital Signs Temperature 97.8 F 12/24/22 01:07 Pulse Rate 65 12/24/22 02:06 Respiratory Rate 14 12/24/22 02:06 Blood Pressure 106/66 12/24/22 02:06 Pulse Oximetry 98 12/24/22 02:06 Oxygen Delivery Me thod Room Air 12/24/22 01:07 MDM - Dizziness Medical Decision Making Patient presents here with generalized weakness her blood work here is normal head CT is normal she has no signs of stroke she is feeling she is stable for discharge she is to follow-up with PCP and return if worsening.. Medical Records I reviewed the patient's medical records. Lab Data I reviewed the patient's lab results. 12/24/22 01:46 12/24/22 01:46 Radiology Impressions Chest X-Ray 12/24/22 01:36 IMPRESSION: No acute findings. Head CT 12/24/22 01:36 IMPRESSION: 1. No acute intracranial abnormality identified. 2. Stable suboccipital craniectomy for Chiari malformation. Hip/Pelvis X-Ray 12/24/22 01:48 IMPRESSION: No acute findings. Laboratory Results WBC 6.14 10^3/uL (3.29-11.43) 12/24/22 01:46 RBC 4.30 10^6/uL (3.85-5.65) 12/24/22 01:46 Hgb 14.90 g/dL (11.27-16.99) 12/24/22 01:46 Hct 44.6 % (36-47) 12/24/22 01:46 MCV 103.7 fl (85-98) H 12/24/22 01:46 MCH 34.7 pg (27-33) H 12/24/22 01:46 MCHC 33.4 g/dL (30-55) 12/24/22 01:46 RDW 13.5 % (12.1-15.1) 12/24/22 01:46 Plt Count 240 10^3/cmm (157-399) 12/24/22 01:46 MPV 9.8 fL (7.4-10.4) 12/24/22 01:46 Neut % (Auto) 45.8 % 12/24/22 01:46 Lymph % (Auto) 45.1 % 12/24/22 01:46 Roberts % (Auto) 6.5 % 12/24/22 01:46 Eos % (Auto) 1.6 % 12/24/22 01:46 Baso % (Auto) 0.7 % 12/24/22 01:46 Neut # (Auto) 2.81 10^3/uL (1.8-7.7) 12/24/22 01:46 Lymph # (Auto) 2.8 10^3/uL (0.8-4.8) 12/24/22 01:46 Roberts # (Auto) 0.4 10^3/uL (0.2-0.9) 12/24/22 01:46 Eos # (Auto) 0.1 10^3/uL (0.0-0.8) 12/24/22 01:46 Baso # (Auto) 0.0 10^3/uL (0.0-0.1) 12/24/22 01:46 Nucleated RBC % (auto) 0 % 12/24/22 01:46 Nucleated RBCs # 0.0 /100WBC 12/24/22 01:46 Sodium 139 mmol/L (136-145) 12/24/22 01:46 Potassium 4.4 mmol/L (3.5-5.1) 12/24/22 01:46 Chloride 102 mmol/L (98-107) 12/24/22 01:46 Carbon Dioxide 27 mmol/L (22-29) 12/24/22 01:46 Anion Gap 14.4 (5-19) 12/24/22 01:46 BUN 11 mg/dL (6-20) 12/24/22 01:46 Creatinine 0.7 mg/dL (0.5-0.9) 12/24/22 01:46 GFR Calculation 88.9 mL/min (90-130) L 12/24/22 01:46 Glucose 92 mg/dL (65-115) 12/24/22 01:46 Calculated Osmolality 287 mOsm/kg (285-295) 12/24/22 01:46 Calcium 10.2 mg/dL (8.5-10.5) 12/24/22 01:46 Total Bilirubin 0.2 mg/dL (0.15-1.2) 12/24/22 01:46 AST 24 U/L (0-32) 12/24/22 01:46 ALT 22 U/L (0-33) 12/24/22 01:46 Alkaline Phosphatase 182 U/L (35-105) H 12/24/22 01:46 Total Protein 7.7 g/dL (6.6-8.7) 12/24/22 01:46 Albumin 4.8 g/dL (3.5-5.2) 12/24/22 01:46 Globulin 2.9 g/dL (1.3-4.6) 12/24/22 01:46 TSH 0.74 uIU/mL (0.27-4.20) 12/24/22 01:46 Urine Color Colorless (Yellow) 12/24/22 02:16 Urine Appearance Clear (CLEAR) 12/24/22 02:16 Urine pH 6 (5-7) 12/24/22 02:16 Ur Specific Goodwin 1.010 (1.005-1.030) 12/24/22 02:16 Urine Protein Neg (Negative) 12/24/22 02:16 Urine Glucose (UA) Norm (Normal) 12/24/22 02:16 Urine Ketones Negative (Negative) 12/24/22 02:16 Urine Blood Neg (Negative) 12/24/22 02:16 Urine Nitrate Negative (Negative) 12/24/22 02:16 Urine Bilirubin Neg (Negative) 12/24/22 02:16 Urine Urobilinogen Neg mg/dL (Negative) 12/24/22 02:16 Ur Leukocyte Esterase Negative (Negative) 12/24/22 02:16 Discharge Plan Discharge Patient Disposition: Home Clinical Impression: Generalized weakness Condition: Stable Prescriptions: No Action (DME) Oxygen 3 liters See Rx Instructions .Route .MEDSUPPLY Qty: 1 0RF Rx Instructions: As directed ibuprofen 400 mg tablet 800 mg PO TID albuterol sulfate [Ventolin HFA] 90 mcg/actuation HFA aerosol inhaler 2 puff inhalation Q6H PRN (Reason: shortness of breath or wheezing) Qty: 8.5 3RF propranolol 20 mg tablet 20 mg PO BID Qty: 60 5RF trazodone 100 mg tablet See Rx Instructions .ROUTE .COMPLEX 30 Days Qty: 60 5RF Dose Instruction: TAKE 1/2 TABLET BY MOUTH EVERY MORNING AND TAKE 1 & 1/2 TABLETS BY MOUTH AT BEDTIME Rx Instructions: TAKE 1/2 TABLET BY MOUTH EVERY MORNING AND TAKE 1 & 1/2 TABLETS BY MOUTH AT BEDTIME Primatene Mist 0.125 mg/actuation HFA aerosol inhaler 1 puff inhalation Q6H PRN (Reason: bronchodilation) Qty: 11.7 5RF Rx Instructions: may repeat once after 1 minute duloxetine 40 mg capsule,delayed release(DR/EC) 40 mg PO DAILY Qty: 60 5RF fluconazole [Diflucan] 150 mg tablet 150 mg PO Q3D Qty: 2 0RF cephalexin 500 mg capsule 500 mg PO QID 7 Days Qty: 28 0RF yhchcjottl-ihcvsugdahxbt-ighh [Esgic] 50-325-40 mg tablet 1 tab PO TID PRN (Reason: Chronic headaches) Qty: 90 5RF Stiolto Respimat 2.5-2.5 mcg/actuation mist See Rx Instructions .ROUTE .COMPLEX Qty: 4 5RF Dose Instruction: USE 2 PUFFS EVERY DAY FOR COPD Rx Instructions: USE 2 PUFFS EVERY DAY FOR COPD montelukast 10 mg tablet See Rx Instructions .ROUTE .COMPLEX Qty: 30 5RF Dose Instruction: TAKE ONE TABLET BY MOUTH EVERY DAY Rx Instructions: TAKE ONE TABLET BY MOUTH EVERY DAY lamotrigine 200 mg tablet See Rx Instructions .ROUTE .COMPLEX Qty: 60 5RF Dose Instruction: TAKE 1 TABLET BY MOUTH TWO TIMES DAILY Rx Instructions: TAKE 1 TABLET BY MOUTH TWO TIMES DAILY ondansetron HCl 4 mg tablet 4 mg PO Q6H PRN (Reason: nausea and vomiting) Qty: 14 0RF Calcium 500 500 mg calcium (1,250 mg) Tablet 500 mg PO DAILY Vitamin D3 25 mcg (1,000 unit) Capsule 25 mcg PO DAILY potassium gluconate 595 mg (99 mg) Tablet 595 mg PO DAILY Daily Multiple 18-400 mg-mcg Tablet 1 tab PO DAILY elderberry fruit 350 mg Capsule 350 mg PO DAILY Discharge Orders: Discharge ED (Routine); Ordered 12/24/22 Ordered By: Akilah Leija Referrals: Hever Lee MD [Primary Care Provider] - 1-3 days Discharge Diet: Advance as tolerated Discharge Activity: Resume usual activity Patient Instructions: Weakness (ED) Coding Level of Care Code ED Restaurant Delivery Driver for Shiv Trevizo
--- NOTE | 2022-12-24 01:48 | XRR_ITS ---
PROCEDURE INFORMATION: Exam: XR Left Hip Exam date and time: 12/24/2022 2:04 AM Age: 47 years old Clinical indication: Patient HX: C/O left hip pain. No injury. ; Additional info: Fall TECHNIQUE: Imaging protocol: Radiologic exam of the left hip. Views: 2 or 3 views hip with pelvis when performed. COMPARISON: CT abdomen pelvis w con* [id number] 12/21/2016 5:26 PM FINDINGS: Bones/joints: Normal. No acute fracture or dislocation. Soft tissues: Unremarkable. XR/XR hip LT 2-3V wo/w pel* [id number] IMPRESSION: No acute findings.
[2022-12-24] MEDS: meclizine 25 mg tablet 50 MG PO (01:50)
[2022-12-24 01:52] LABS: Basophils % 0.7 %; Eosinophils # 0.1 10^3/uL (0.0-0.8); Eosinophils % 1.6 %; Hematocrit 44.6 % (36-47); Lymphocytes # 2.8 10^3/uL (0.8-4.8); Lymphocytes % 45.1 %; Mean Corpuscular HGB Conc 33.4 g/dL (30-55); Mean Corpuscular Hemoglobin 34.7 pg (27-33); Mean Corpuscular Volume 103.7 fl (85-98); Mean Platelet Volume 9.8 fL (7.4-10.4); Monocytes # 0.4 10^3/uL (0.2-0.9); Monocytes % 6.5 %; Neutrophils # 2.81 10^3/uL (1.8-7.7); Neutrophils % 45.8 %; Nucleated Red Blood Cells % 0 %; Platelet Count 240 10^3/cmm (157-399); Red Cell Distribution Width 13.5 % (12.1-15.1); White Blood Count 6.14 10^3/uL (3.29-11.43)
[2022-12-24] MEDS: sodium chloride 0.9% 1,000 ML 999 ML IV (01:52)
[2022-12-24 02:06] VITALS: BP 106/66; PULSE 65; RESP 14; O2SAT 98
[2022-12-24 02:22] LABS: Alanine Aminotransferase 22 U/L (0-33); Albumin Level 4.8 g/dL (3.5-5.2); Alkaline Phosphatase 182 U/L (35-105); Anion Gap 14.4 (5-19); Aspartate Amino Transferase 24 U/L (0-32); Blood Urea Nitrogen 11 mg/dL (6-20); Calcium 10.2 mg/dL (8.5-10.5); Carbon Dioxide 27 mmol/L (22-29); Chloride 102 mmol/L (98-107); Globulin 2.9 g/dL (1.3-4.6); Glomerular Filtration Rate 88.9 mL/min (90-130); Glucose 92 mg/dL (65-115); Osmolality Calculated 287 mOsm/kg (285-295); Potassium 4.4 mmol/L (3.5-5.1); Sodium 139 mmol/L (136-145); Thyroid Stimulating Hormone 0.74 uIU/mL (0.27-4.20); Total Bilirubin 0.2 mg/dL (0.15-1.2); Total Protein 7.7 g/dL (6.6-8.7)
[2022-12-24 02:33] LABS: Add Urine Microscopic? NO; Charge for UA Resulting for Rev
[2022-12-24 02:36] LABS: Bilirubin Urine Neg (Negative); Blood Urine Neg (Negative); Glucose Urine UA Norm (Normal); Ketones Urine Negative (Negative); Leukocyte Esterase Urine Negative (Negative); Nitrate Urine Negative (Negative); Protein Urine Neg (Negative); Urine Appearance Clear (CLEAR); Urine Color Colorless (Yellow); Urobilinogen Urine Neg (Negative); pH Urine 6 (5-7)
[2022-12-24 03:17] VITALS: BP 121/59; PULSE 66; RESP 18; O2SAT 96
== END 2022-12-24 03:18 | disposition home or self-care (01) ==
PROVIDERS: Emergency Provider Emergency Medicine; PCP Family Medicine Adult Medicine
DX: R53.1 Weakness (principal); F17.210 Nicotine dependence, cigarettes, uncomplicated; J44.9 Chronic obstructive pulmonary disease, unspecified
CPT/HCPCS: 70450; 71045; 73502; 80053; 81003; 84443; 85025; 93005; 96360; 99285; J7030; J8597

== ENCOUNTER 2023-02-27 11:26 | Outpatient (RCR) | payer MEDICARE, MEDICAID, SELFPAY | END 2023-03-22 23:59 | disposition home or self-care (01) | LOC: SPT 11:26 | PROVIDERS: PCP Family Medicine Adult Medicine; Visit Provider General Practice | DX: M50.30 Other cervical disc degeneration, unspecified cervical region (principal); M47.22 Other spondylosis with radiculopathy, cervical region; M47.27 Other spondylosis with radiculopathy, lumbosacral region | CPT/HCPCS: 97110; 97161 ==

== ENCOUNTER 2023-03-02 10:20 | Outpatient (CLI) | payer MEDICARE, MEDICAID, SELFPAY ==
--- NOTE | 2023-03-02 10:29 | XR_ITS ---
WS: [id number] Cervical spine, with 4 views, 03/02/2023 Clinical Data: CERVICAL STENOSIS OF SPINE Comparison: Cervical spine, 10/05/2022 Findings: There is an anterior cervical disc fusion at C5-C6 with an artificial disc. The soft tissue s of the neck and the lung apices are unremarkable. No prevertebral soft tissue swelling is seen. Impression: Stable anterior cervical disc fusion C5-C6.
== END 2023-03-02 10:21 | disposition home or self-care (01) ==
LOC: RAD 10:24
PROVIDERS: PCP Family Medicine Adult Medicine; Visit Provider Surgery
DX: M48.02 Spinal stenosis, cervical region (principal); Z98.1 Arthrodesis status
CPT/HCPCS: 72040

== ENCOUNTER → 2023-03-07 15:36 | Outpatient (BNVA) | payer MEDICARE, MEDICAID, SELFPAY | PROVIDERS: PCP Family Medicine Adult Medicine; Visit Provider Family Medicine Adult Medicine | DX: R39.9 Unspecified symptoms and signs involving the genitourinary system (principal) | CPT/HCPCS: 81000 ==

== ENCOUNTER → 2023-04-10 13:52 | Outpatient (BNVA) | payer MEDICARE, SELFPAY | PROVIDERS: PCP Family Medicine Adult Medicine; Visit Provider Physician Assistant | DX: M19.132 Post-traumatic osteoarthritis, left wrist; S62.002S Unspecified fracture of navicular [scaphoid] bone of left wrist, sequela; X58.XXXS Exposure to other specified factors, sequela | CPT/HCPCS: 73110; 99213 ==

== ENCOUNTER 2023-04-12 06:58 | Emergency (ER) | payer MEDICARE, MEDICAID, SELFPAY ==
[2023-04-12 07:06] VITALS: BP 137/65; PULSE 66; RESP 17; TEMP 36.6; O2SAT 99; BMI 18.1
--- NOTE | 2023-04-12 07:17 | ED_ITS ---
HPI - Skin/Abscess/Foreign Bdy General: Chief complaint: Skin/Abscess/Foreign Body Stated complaint: open wound right thumb Time Seen by Provider: 04/12/23 06:59 Source: patient Mode of arrival: ambulatory History of Present Illness: 47-year-old female presents to the emerg ency room with a skin lesion on her left thumb. She has other areas dermatitis that began after procedure and using some cleaning products on the dorsum of the left proximal phalanx there is an open superficial lesion slightly raised. Violaceous in nature. She was seen 6 days ago and started on mupirocin was seen 2 days ago and started on Bactrim. Note from the original visit on 1216 at the urgent care clinic states the lesion had been there for 1 to 2 weeks. No fever sweats or chills. Patient denies being bitten by any insects. 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 Adarsh Stone Cervical dystonia Chronic pain management Dr. Kessler Bipolar disorder with severe mark Osteoporosis Anxiety and depression Neuropathy of left peroneal nerve History of colon polyps Nocturnal hypoxemia Chronic neck pain Chronic pain management Dr. Kessler COPD (chronic obstructive pulmonary disease) Surgical History History of colonoscopy with polypectomy 2014 History of esophagogastroduodenoscopy (EGD) History of hysterectomy History of brain surgery brain surgery for a Chiari malformation repair in 2005. History of cholecystectomy Social History Smoking and tobacco/nicotine status: current every day tobacco/nicotine user (0.5ppd) cigarettes Packs smoked per day: 0.25 Years cigarettes smoked: 30 Quit status (tobacco/nicotine): has tried quititng Number of times tried to quit tobacco: 10 Second hand smoke exposure: Yes Alcohol intake: never Substance/Drug Use: never Lives independently: Yes Household members: family Housing: Apartment Marital status: Current occupational status: disabled Pets and animals: Yes Do you think of yourself as: Straight/Heterosexual Current gender identity: Female Physical Exam Narrative: EXAM NARRATIVE: Open skin lesion on the dorsum of the proximal phalanx first digit right hand. The edges are slightly raised its eroded centrally although the wound remove it looks more superficial in nature she is able to flex and extend the thumb without difficulty. There is no visible underlying structures involved. No active drainage. There are a few small minimally tender epitrochlear nodes. No abscess palpable Course Vital Signs: Vital signs: Vital Signs Temperature 97.9 F 04/12/23 07:06 Pulse Rate 66 04/12/23 07:06 Respiratory Rate 17 04/12/23 07:06 Blood Pressure 137/65 04/12/23 07:06 Pulse Oximetry 99 04/12/23 07:06 Oxygen Delivery Me thod Room Air 04/12/23 07:06 MDM - Skin/Abscess/Foreign Bdy Medicial Decision Making Eroded lesion in the normal system under lying ecchymosis at the edges but there is no localized erythema there is a few small palpable epitrochlear lymph node she does not appear septic in nature. She has no fever. At this point recommend continuing the topical antibiotic ointment and the oral antibiotics she just started that within the last day and a half. Antibiotic was started incidentally by the PA in the Ortho clinic. Recommend follow-up with primary care next week if it is not beginning to resolve she may need to be referred to surgery for possible debridement or pop or biopsying. Medical Records I reviewed the patient's medical records. Lab Data I reviewed the patient's lab results. No radiology studies performed this visit Discharge Plan Discharge Patient Disposition: Home Clinical Impression: Cellulitis of finger of left hand Condition: Stable Prescriptions: No Action (DME) Oxygen 3 liters See Rx Instructions .Route .MEDSUPPLY Qty: 1 0RF Rx Instructions: As directed ibuprofen 400 mg tablet 800 mg PO TID trazodone 100 mg tablet See Rx Instructions .ROUTE .COMPLEX 30 Days Qty: 60 5RF Dose Instruction: TAKE 1/2 TABLET BY MOUTH EVERY MORNING AND TAKE 1 & 1/2 TABLETS BY MOUTH AT BEDTIME Rx Instructions: TAKE 1/2 TABLET BY MOUTH EVERY MORNING AND TAKE 1 & 1/2 TABLETS BY MOUTH AT BEDTIME Primatene Mist 0.125 mg/actuation HFA aerosol inhaler 1 puff inhalation Q6H PRN (Reason: bronchodilation) Qty: 11.7 5RF Rx Instructions: may repeat once after 1 minute sulfamethoxazole-trimethoprim [Bactrim DS] 800-160 mg tablet 1 tab PO BID 7 Days Qty: 14 0RF ciprofloxacin HCl 500 mg tablet 500 mg PO BID Qty: 10 0RF phenazopyridine [Pyridium] 100 mg tablet 100 mg PO TID PRN (Reason: pain) Qty: 14 0RF mupirocin 2 % ointment 1 applic topical TID Qty: 22 0RF Stiolto Respimat 2.5-2.5 mcg/actuation mist See Rx Instructions .ROUTE .COMPLEX Qty: 4 5RF Dose Instruction: USE 2 PUFFS EVERY DAY FOR COPD Rx Instructions: USE 2 PUFFS EVERY DAY FOR COPD montelukast 10 mg tablet See Rx Instructions .ROUTE .COMPLEX Qty: 30 5RF Dose Instruction: TAKE ONE TABLET BY MOUTH EVERY DAY Rx Instructions: TAKE ONE TABLET BY MOUTH EVERY DAY lamotrigine 200 mg tablet See Rx Instructions .ROUTE .COMPLEX Qty: 60 5RF Dose Instruction: TAKE 1 TABLET BY MOUTH TWO TIMES DAILY Rx Instructions: TAKE 1 TABLET BY MOUTH TWO TIMES DAILY mnssilnpzx-evbbiecznbukk-awdz [Esgic] 50-325-40 mg tablet 1 tab PO TID PRN (Reason: Chronic headaches) Qty: 90 5RF albuterol sulfate [Ventolin HFA] 90 mcg/actuation HFA aerosol inhaler 2 puff inhalation Q6H PRN (Reason: shortness of breath or wheezing) Qty: 8.5 3RF citalopram 40 mg tablet 40 mg PO QAM Qty: 90 1RF Rx Instructions: 340 B Meds ondansetron HCl 4 mg tablet 4 mg PO Q6H PRN (Reason: nausea and vomiting) Qty: 30 2RF Calcium 500 500 mg calcium (1,250 mg) Tablet 500 mg PO DAILY Vitamin D3 25 mcg (1,000 unit) Capsule 25 mcg PO DAILY potassium gluconate 595 mg (99 mg) Tablet 595 mg PO DAILY Daily Multiple 18-400 mg-mcg Tablet 1 tab PO DAILY elderberry fruit 350 mg Capsule 350 mg PO DAILY Discharge Orders: Discharge ED (Routine); Ordered 04/12/23 Ordered By: Ja Cutler Referrals: Hever Lee MD [Primary Care Provider] - Discharge Diet: Usual diet Discharge Activity: Increase activity as tolerated Patient Instructions: Opioid Safety, Pain Management Activity Restrictions/Additional Instructions: Thank you for choosing [facility] for your healthcare needs today. Please realize this is an emergency room and that we are providing you with a medical screening exam and this may not be complete and all inclusive of all the testing and or work up that you may need to determine your ailment or severity of your illness. It is very important that you follow up as instructed or that you return to the Emergency Department should you have concerns or if your condition changes or worsens in any way. Recommend you continue the topical antibiotic ointment and the Bactrim. Follow- up with your primary care doctor next week you may need referral for debridement. At this time the wound does not require any surgical intervention or hospital admission. Coding Level of Care Code ED Senior Environmental Practice Leader for Shiv Trevizo
== END 2023-04-12 07:56 | disposition home or self-care (01) ==
PROVIDERS: Emergency Provider Family Medicine; PCP Family Medicine Adult Medicine
DX: L03.012 Cellulitis of left finger (principal); F17.210 Nicotine dependence, cigarettes, uncomplicated; J44.9 Chronic obstructive pulmonary disease, unspecified
CPT/HCPCS: 87040; 99283

== ENCOUNTER → 2023-04-19 07:57 | Outpatient (BNVA) | payer MEDICARE, MEDICAID, SELFPAY | PROVIDERS: PCP Family Medicine Adult Medicine; Visit Provider Nurse Practitioner Family | DX: I96 Gangrene, not elsewhere classified (principal); L98.492 Non-pressure chronic ulcer of skin of other sites with fat layer exposed | CPT/HCPCS: 97597; 99213 ==

== ENCOUNTER 2023-04-24 09:44 | Emergency (ER) | payer MEDICARE, MEDICAID, SELFPAY ==
--- NOTE | 2023-04-24 09:49 | ECG_ITS ---
[facility] Test Date: 2023-04-24 Pat Name: Jazmín Shaw Department: Room: Gender: Female Plate Printer: : 1975 Requested By: Ja Kellogg Order Number: [id number] Juan MD: Georgia Powell M.D. Measurements Intervals Fabens Rate: 72 P: 96 GA: 104 QRS: 89 QRSD: 83 T: 68 QT: 386 QTc: 425 Interpretive Statements SINUS RHYTHM WITH SHORT GA INTERVAL Compared to ECG 12/24/2022 02:38:35 Short GA interval now present Sinus bradycardia no longer present Electronically Signed On 04-24-2023 17:46:42 CHILD PSYCHOMETRIST by Georgia Powell M.D. [email or web address]
[2023-04-24 09:50] VITALS: BP 119/53; PULSE 76; TEMP 36.4; O2SAT 91; BMI 17.9
--- NOTE | 2023-04-24 09:50 | XR_ITS ---
WS: [id number] Portable AP upright chest, 04/24/2023 Clinical Data: dyspnea/cough Comparison: Portable chest, 12/24/2022 Findings: No nodules, masses or effusions are seen. The heart is normal. The pulmonary vascularity is not increased. No pneumonia or pneumothorax is seen. Impression: Negative chest.
--- NOTE | 2023-04-24 09:51 | ED_ITS ---
HPI - Seizure 2 General: Chief Complaint: Seizure Stated Complaint: ams,possible seizure Time Seen by Provider: 04/24/23 09:47 Source: patient Mode of arrival: EMS History of Present Illness: HPI Narrative: 47-year-old female presents emergency ro om via ambulance with a complaint of possible seizure. She was not feeling well called out to her brother who she lives with that something is wrong when he came to check on her she was having seizure-like activity. She does remember very well she had a similar episode last month where she fell unexpectedly she did some damage to her front teeth and cut her lip she was not seen at that time. No history of seizures she does have a history of a previous Chiari malformation repair in 2005 and a neck surgery about 2 months ago no recent illness fever sweats or chills no recent trauma to her neck beyond the fall that she had mentioned previously. She relates the still having a headache now radiating out of the left side of her upper neck through the occipital area to her forehead. No vomiting or diarrhea. No recent medication changes no dysuria urgency or frequency no chest pain. MD complaint: possible seizure Onset (ago): minute(s) Description of Episode: tonic-clonic movement Witnessed: Yes - by Bystander Trauma: Yes (Fall about 2 weeks ago) Seizure History: No Place: Home Associated symptoms: Deny chest pain, chills or fever(s) Review of Systems 2 Const: Denies: fever(s) or chills Card: Denies: chest pain Resp: Denies: dyspnea GI: Denies: abdominal pain : Denies: dysuria, urinary frequency or urinary urgency Musc: Denies: neck pain or back pain Skin/Breast: Denies: rash Neuro: Reports: headache(s) PFSH ED 2 PFSH: Medical History (Updated 05/02/23 @ 00:00 by PETER Newell) Witnessed seizure-like activity Tremor Weight loss of more than 10% body weight Fibromyalgia 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 Adarsh Stone Cervical dystonia Chronic pain management Dr. Kessler Bipolar disorder with severe mark Osteoporosis Anxiety and depression Neuropathy of left peroneal nerve History of colon polyps Nocturnal hypoxemia Chronic neck pain Chronic pain management Dr. Kessler COPD (chronic obstructive pulmonary disease) Surgical History History of colonoscopy with polypectomy 2014 History of esophagogastroduodenoscopy (EGD) History of hysterectomy History of brain surgery brain surgery for a Chiari malformation repair in 2005. History of cholecystectomy Social History Smoking and tobacco/nicotine status: current every day tobacco/nicotine user (0.5ppd) cigarettes Packs smoked per day: 0.25 Years cigarettes smoked: 30 Quit status (tobacco/nicotine): has tried quititng Number of times tried to quit tobacco: 10 Second hand smoke exposure: Yes Alcohol intake: never Substance/Drug Use: never Lives independently: Yes Household members: family Housing: Apartment Marital status: Current occupational status: disabled Pets and animals: Yes Do you think of yourself as: Straight/Heterosexual Current gender identity: Female Physical Exam 2 Const: COMMON NORMALS: no acute distress GENERAL APPEARANCE: cooperative and comfortable ORIENTATION/CONSCIOUSNESS: Yes awake, Yes oriented to person, Yes oriented to place and Yes oriented to time HENMT: COMMON NORMALS: normocephalic, atraumatic and hearing grossly normal bilaterally HEAD & SCALP: normocephalic and atraumatic Resp: COMMON NORMALS: normal respiratory effort, No retractions, No use of accessory muscles and clear to auscultation bilaterally AUSCULTATION: clear to auscultation bilaterally Cardio: COMMON NORMALS: regular rate, regular rhythm and No murmurs present (Cardio) RATE: regular rate RHYTHM: regular rhythm GI: COMMON NORMALS: Soft to palpation and No hepatosplenomegaly present A USCULTATION: Yes normoactive bowel sounds PALPATION: Yes Soft to palpation, No Tenderness to palpation present (GI), No Guarding due to palpation present (GI) and Yes No hepatosplenomegaly present Extremity: COMMON NORMALS: normal to inspection, capillary refill normal, no clubbing, cyanosis or edema, no calf tenderness and no pedal edema Neuro: SENSORIUM/ORIENTATION: Yes oriented to person, Yes oriented to place and Yes oriented to time Skin: COMMON NORMALS: no rashes or lesions noted GENERAL SKIN EXAM: no rashes or lesions noted Course 2 Vital Signs: Vital signs: Vital Signs Temperature 97.5 F L 04/24/23 09:50 Pulse Rate 72 04/24/23 12:41 Blood Pressure 125/76 04/24/23 12:41 Pulse Oximetry 93 04/24/23 12:41 Oxygen Delivery Me thod Room Air 04/24/23 12:41 MDM - Seizure MDM Narrative Medical decision making narrative: Patient with a known history of seizures. Head CT unremarkable labs reviewed unremarkable. Discharge patient home continue current medications. Medical Records Attestation: I reviewed the patient's medical records. Lab Data Attestation: I reviewed the patient's lab results. 04/24/23 10:02 04/24/23 10:02 Labs: Radiology Impressions Head CT 04/24/23 10:01 IMPRESSION: No evidence of acute intracranial process. Laboratory Results WBC 6.73 10^3/uL (3.29-11.43) 04/24/23 10:02 RBC 4.00 10^6/uL (3.85-5.65) 04/24/23 10:02 Hgb 14.00 g/dL (11.27-16.99) 04/24/23 10:02 Hct 42.1 % (36-47) 04/24/23 10:02 MCV 105.3 fl (85-98) H 04/24/23 10:02 MCH 35.0 pg (27-33) H 04/24/23 10:02 MCHC 33.3 g/dL (30-55) 04/24/23 10:02 RDW 13.1 % (12.1-15.1) 04/24/23 10:02 Plt Count 276 10^3/cmm (157-399) 04/24/23 10:02 MPV 9.4 fL (7.4-10.4) 04/24/23 10:02 Neut % (Auto) 66.6 % 04/24/23 10:02 Lymph % (Auto) 25.1 % 04/24/23 10:02 [place] % (Auto) 7.0 % 04/24/23 10:02 Eos % (Auto) 0.6 % 04/24/23 10:02 Baso % (Auto) 0.3 % 04/24/23 10:02 Neut # (Auto) 4.48 10^3/uL (1.8-7.7) 04/24/23 10:02 Lymph # (Auto) 1.7 10^3/uL (0.8-4.8) 04/24/23 10:02 [place] # (Auto) 0.5 10^3/uL (0.2-0.9) 04/24/23 10:02 Eos # (Auto) 0.0 10^3/uL (0.0-0.8) 04/24/23 10:02 Baso # (Auto) 0.0 10^3/uL (0.0-0.1) 04/24/23 10:02 Nucleated RBC % (auto) 0 % 04/24/23 10:02 Nucleated RBCs # 0.0 /100WBC 04/24/23 10:02 Sodium 139 mmol/L (136-145) 04/24/23 10:02 Potassium 3.4 mmol/L (3.5-5.1) L 04/24/23 10:02 Chloride 103 mmol/L (98-107) 04/24/23 10:02 Carbon Dioxide 23 mmol/L (22-29) 04/24/23 10:02 Anion Gap 16.4 (5-19) 04/24/23 10:02 BUN 6 mg/dL (6-20) 04/24/23 10:02 Creatinine 0.5 mg/dL (0.5-0.9) 04/24/23 10:02 GFR Calculation 131.1 mL/min (90-130) H 04/24/23 10:02 Glucose 127 mg/dL (65-115) H 04/24/23 10:02 Calculated Osmolality 287 mOsm/kg (285-295) 04/24/23 10:02 Lactic Acid 3.3 mmol/L (0.5-2.2) H 04/24/23 10:02 Lactic Acid (Sepsis) 1.0 mmol/L (0.5-2.2) 04/24/23 12:41 Calcium 8.3 mg/dL (8.5-10.5) L 04/24/23 10:02 Total Bilirubin 0.2 mg/dL (0.15-1.2) 04/24/23 10:02 AST 21 U/L (0-32) 04/24/23 10:02 ALT 21 U/L (0-33) 04/24/23 10:02 Alkaline Phosphatase 176 U/L (35-105) H 04/24/23 10:02 Creatine Kinase 84 U/L (26-192) 04/24/23 10:02 Total Protein 6.7 g/dL (6.6-8.7) 04/24/23 10:02 Albumin 3.7 g/dL (3.5-5.2) 04/24/23 10:02 Globulin 3.0 g/dL (1.3-4.6) 04/24/23 10:02 All radiology interpretation(s) finalized by discharge Discharge Plan Discharge Patient Disposition: Home Clinical Impression: Generalized seizure Condition: Stable Prescriptions: No Action (DME) Oxygen 3 liters See Rx Instructions .Route .MEDSUPPLY Qty: 1 0RF Rx Instructions: As directed ibuprofen 400 mg tablet 800 mg PO TID trazodone 100 mg tablet See Rx Instructions .ROUTE .COMPLEX 30 Days Qty: 60 5RF Dose Instruction: TAKE 1/2 TABLET BY MOUTH EVERY MORNING AND TAKE 1 & 1/2 TABLETS BY MOUTH AT BEDTIME Rx Instructions: TAKE 1/2 TABLET BY MOUTH EVERY MORNING AND TAKE 1 & 1/2 TABLETS BY MOUTH AT BEDTIME Primatene Mist 0.125 mg/actuation HFA aerosol inhaler 1 puff inhalation Q6H PRN (Reason: bronchodilation) Qty: 11.7 5RF Rx Instructions: may repeat once after 1 minute phenazopyridine [Pyridium] 100 mg tablet 100 mg PO TID PRN (Reason: pain) Qty: 14 0RF levofloxacin 750 mg tablet 750 mg PO DAILY oxycodone-acetaminophen [Percocet] 7.5-325 mg tablet 1 tab PO Q6H PRN (Reason: pain) 7 Days Qty: 28 0RF Keppra 500 mg tablet 500 mg PO BID Qty: 60 2RF mupirocin 2 % ointment 1 applic topical TID Qty: 22 0RF spyvgvnacq-qkhsfeetynhzu-nikf [Esgic] 50-325-40 mg tablet 1 tab PO TID PRN (Reason: Chronic headaches) Qty: 90 5RF albuterol sulfate [Ventolin HFA] 90 mcg/actuation HFA aerosol inhaler 2 puff inhalation Q6H PRN (Reason: shortness of breath or wheezing) Qty: 8.5 3RF citalopram 40 mg tablet 40 mg PO QAM Qty: 90 1RF Rx Instructions: 340 B Meds ondansetron HCl 4 mg tablet 4 mg PO Q6H PRN (Reason: nausea and vomiting) Qty: 30 2RF lamotrigine 200 mg tablet See Rx Instructions .ROUTE .COMPLEX Qty: 60 5RF Dose Instruction: TAKE 1 TABLET BY MOUTH TWO TIMES DAILY Rx Instructions: TAKE 1 TABLET BY MOUTH TWO TIMES DAILY montelukast 10 mg tablet See Rx Instructions .ROUTE .COMPLEX Qty: 30 5RF Dose Instruction: TAKE ONE TABLET BY MOUTH EVERY DAY Rx Instructions: TAKE ONE TABLET BY MOUTH EVERY DAY Stiolto Respimat 2.5-2.5 mcg/actuation mist See Rx Instructions .ROUTE .COMPLEX Qty: 4 5RF Dose Instruction: USE 2 PUFFS EVERY DAY FOR COPD Rx Instructions: USE 2 PUFFS EVERY DAY FOR COPD Calcium 500 500 mg calcium (1,250 mg) Tablet 500 mg PO DAILY Vitamin D3 25 mcg (1,000 unit) Capsule 25 mcg PO DAILY potassium gluconate 595 mg (99 mg) Tablet 595 mg PO DAILY Daily Multiple 18-400 mg-mcg Tablet 1 tab PO DAILY elderberry fruit 350 mg Capsule 350 mg PO DAILY Discharge Orders: Discharge ED (Routine); Ordered 04/24/23 Ordered By: Ja Cutler Referrals: Hever Lee MD [Primary Care Provider] - Discharge Diet: Usual diet Discharge Activity: Increase activity as tolerated Patient Instructions: Opioid Safety, Pain Management Activity Restrictions/Additional Instructions: Thank you for choosing [facility] for your healthcare needs today. Please realize this is an emergency room and that we are providing you with a medical screening exam and this may not be complete and all inclusive of all the testing and or work up that you may need to determine your ailment or severity of your illness. It is very important that you follow up as instructed or that you return to the Emergency Department should you have concerns or if your condition changes or worsens in any way. You were seen today for seizures. We recommend that you start Keppra 5 mg twice daily or given the initial loading dose in the emergency room. Case management make arrangements for you to have an outpatient sleep deprived EEG and follow-up with neurology Coding Level of Care Code ED Electrical Superintendent for Shiv Trevizo
[2023-04-24 10:00] VITALS: BP 137/92; PULSE 75; O2SAT 92
--- NOTE | 2023-04-24 10:01 | CTR_ITS ---
PROCEDURE INFORMATION: Exam: CT Head Without Contrast Exam date and time: 04/24/2023 10:25 AM Age: 47 years old Clinical indication: Other: Fall, S/P seizure today; Additional info: New onset seizure TECHNIQUE: Imaging protocol: Computed tomography of the head without contrast. Radiation optimization: All CT scans at this facility use at least one of these dose optimization techniques: automated exposure control; mA and/or kV adjustment per patient size (includes targeted exams where dose is matched to clinical indication); or iterative reconstruction. COMPARISON: CT head wo con* [id number] 12/24/2022 1:58 AM RADIATION DOSE METRICS: Total DLP (mGy-cm): 974.88 FINDINGS: Brain: There is no evidence of acute parenchymal hemorrhage, extra-axial collection, or acute infarction. There is no mass effect, midline shift, or downward herniation. Cerebral ventricles: No ventriculomegaly. Paranasal sinuses: Visualized sinuses are unremarkable. No fluid levels. Mastoid air cells: Visualized mastoid air cells are well aerated. Bones/joints: The patient appears to be status post suboccipital craniectomy. Soft tissues: Unremarkable. CT/CT head wo con* [id number] IMPRESSION: No evidence of acute intracranial process.
[2023-04-24 10:10] LABS: Basophils % 0.3 %; Eosinophils % 0.6 %; Hematocrit 42.1 % (36-47); Lymphocytes # 1.7 10^3/uL (0.8-4.8); Lymphocytes % 25.1 %; Mean Corpuscular HGB Conc 33.3 g/dL (30-55); Mean Corpuscular Volume 105.3 fl (85-98); Mean Platelet Volume 9.4 fL (7.4-10.4); Monocytes # 0.5 10^3/uL (0.2-0.9); Neutrophils # 4.48 10^3/uL (1.8-7.7); Neutrophils % 66.6 %; Nucleated Red Blood Cells % 0 %; Platelet Count 276 10^3/cmm (157-399); Red Cell Distribution Width 13.1 % (12.1-15.1); White Blood Count 6.73 10^3/uL (3.29-11.43)
[2023-04-24 10:24] LABS: Lactic Sepsis W/Reflex 3.3 mmol/L (0.5-2.2)
[2023-04-24 10:25] LABS: Alanine Aminotransferase 21 U/L (0-33); Albumin Level 3.7 g/dL (3.5-5.2); Alkaline Phosphatase 176 U/L (35-105); Anion Gap 16.4 (5-19); Aspartate Amino Transferase 21 U/L (0-32); Blood Urea Nitrogen 6 mg/dL (6-20); Calcium 8.3 mg/dL (8.5-10.5); Carbon Dioxide 23 mmol/L (22-29); Chloride 103 mmol/L (98-107); Creatine Phosphokinase 84 U/L (26-192); Glomerular Filtration Rate 131.1 mL/min (90-130); Glucose 127 mg/dL (65-115); Osmolality Calculated 287 mOsm/kg (285-295); Potassium 3.4 mmol/L (3.5-5.1); Sodium 139 mmol/L (136-145); Total Bilirubin 0.2 mg/dL (0.15-1.2); Total Protein 6.7 g/dL (6.6-8.7)
[2023-04-24 11:00] VITALS: BP 129/87; PULSE 79; O2SAT 93
[2023-04-24 11:54] LABS: Reflex Lactate Order REFLEX LACTIC ORDERD
[2023-04-24] MEDS: levETIRAcetam 1,000 MG/100 ML PREMIX 400 MG IV (11:55)
[2023-04-24] MEDS: acetaminophen 500 mg Tablet 1000 MG PO (12:35)
[2023-04-24 12:41] VITALS: BP 125/76; PULSE 72; O2SAT 93
== END 2023-04-24 13:51 | disposition home or self-care (01) ==
PROVIDERS: Emergency Provider Family Medicine; PCP Family Medicine Adult Medicine
DX: G40.89 Other seizures (principal); F17.210 Nicotine dependence, cigarettes, uncomplicated; J44.9 Chronic obstructive pulmonary disease, unspecified
CPT/HCPCS: 36415; 70450; 71045; 80053; 82550; 83605; 85025; 93005; 96365; 99285; J1953

== ENCOUNTER → 2023-04-26 08:07 | Outpatient (BNVA) | payer MEDICARE, MEDICAID, SELFPAY | PROVIDERS: PCP Family Medicine Adult Medicine; Visit Provider Nurse Practitioner Family | DX: I96 Gangrene, not elsewhere classified (principal); L98.492 Non-pressure chronic ulcer of skin of other sites with fat layer exposed | CPT/HCPCS: 97597; A6210; A6446 ==

== ENCOUNTER → 2023-05-03 08:18 | Outpatient (BNVA) | payer MEDICARE, MEDICAID, SELFPAY | PROVIDERS: PCP Family Medicine Adult Medicine; Visit Provider Nurse Practitioner Family | DX: I96 Gangrene, not elsewhere classified (principal); S61.001D Unspecified open wound of right thumb without damage to nail, subsequent encounter; X58.XXXD Exposure to other specified factors, subsequent encounter | CPT/HCPCS: 97597 ==

== ENCOUNTER → 2023-05-10 08:20 | Outpatient (BNVA) | payer MEDICARE, MEDICAID, SELFPAY | PROVIDERS: PCP Family Medicine Adult Medicine; Visit Provider Nurse Practitioner Family | DX: Z09 Encounter for follow-up examination after completed treatment for conditions other than malignant neoplasm (principal); Z87.2 Personal history of diseases of the skin and subcutaneous tissue | CPT/HCPCS: 99212 ==

== ENCOUNTER → 2023-07-06 14:01 | Outpatient (BNVA) | payer MEDICARE, SELFPAY | PROVIDERS: PCP Family Medicine Adult Medicine; Referring Provider Family Medicine; Visit Provider Specialist | DX: R29.90 Unspecified symptoms and signs involving the nervous system (principal); G40.309 Generalized idiopathic epilepsy and epileptic syndromes, not intractable, without status epilepticus; G43.711 Chronic migraine without aura, intractable, with status migrainosus | CPT/HCPCS: 99215 ==

== ENCOUNTER 2023-11-29 11:08 | Outpatient (CLI) | payer MEDICARE, SELFPAY ==
--- NOTE | 2023-11-26 09:18 | CT_ITS ---
WS: [id number] LDCT LUNG CANCER SCREENING HISTORY: NICOTINE DEPENDENCE,CIGARETTES TECHNIQUE: Axial imaging performed from the apices to 1 cm below the costophrenic angles. Coronal and sagittal reformats are submitted with axial MIP series. All CT scans at [facility] use at least one of these dose optimization techniques: automated exposure control; mA and/or kV adjustment per patient size (includes targeted exams where dose is matched to clinical indication); or iterativ e reconstruction. DLP: 40.62 mGy.cm DIvol: Mean CTDIvol: 0.60 (mGy) COMPARISON: Chest CT 10/29/2019 Diagnostic quality: Satisfactory Lungs: Marked pulmonary hyperinflation with centrilobular emphysema. Diffuse interstitial thickening and scattered micronodules. Mild subpleural tagging. No mass or nodule. No endobronchial lesions. Heart: Normal size heart with no pericardial effusion.. Other findings: Mild atherosclerosis aorta. No mediastinal or hilar adenopathy. Prior cholecystectomy . Mild anterior wedging of T12. CT/CT lung screening [id number] IMPRESSION: LUNG-RADS: 1-Negative FOLLOW UP: 12 Month: Continue annual screening with LDCT OTHER FINDINGS (S MODIFIER): None.
--- NOTE | 2023-11-29 11:33 | MM_ITS ---
WS: [id number] SCREENING DIGITAL BREAST TOMOSYNTHESIS MAMMOGRAM WITH CAD HISTORY: SCREENING COMPARISON: None available. Bilateral CC and MLO with tomosynthesis and synthetic mammography submitted. Computer aided detection analyzed. Breast composition: The breasts are heterogeneously dense, which may obscure small masses. Focal asym metry measuring 4 mm in the mid LEFT breast, medial and near the nipple line. No corresponding abnorm ality seen on the lateral projection. RIGHT breast is negative. MM/[place] [id number] IMPRESSION: BI-RADS: 0-Incomplete: Need additional imaging evaluation FOLLOW UP: Need Additional Imaging LEFT breast: Spot compression views (CC ). True ML. Ultrasound to follow if abn ormality persists.
== END 2023-11-29 11:09 | disposition home or self-care (01) ==
LOC: RAD 11:31
PROVIDERS: PCP Family Medicine; Visit Provider Family Medicine
DX: F17.210 Nicotine dependence, cigarettes, uncomplicated (principal); Z78.9 Other specified health status; Z12.2 Encounter for screening for malignant neoplasm of respiratory organs; Z12.31 Encounter for screening mammogram for malignant neoplasm of breast; R92.333 Mammographic heterogeneous density, bilateral breasts; I70.0 Atherosclerosis of aorta; Z98.890 Other specified postprocedural states
CPT/HCPCS: 71271; 77063; 77067

== ENCOUNTER → 2024-01-18 12:18 | Outpatient (BNVA) | payer MEDICARE, SELFPAY | PROVIDERS: PCP Family Medicine; Visit Provider Specialist | DX: R29.90 Unspecified symptoms and signs involving the nervous system; G40.309 Generalized idiopathic epilepsy and epileptic syndromes, not intractable, without status epilepticus; G43.711 Chronic migraine without aura, intractable, with status migrainosus | CPT/HCPCS: 99213 ==

== ENCOUNTER 2024-01-21 09:36 | Outpatient (CLI) | payer MEDICARE, SELFPAY ==
--- NOTE | 2024-01-21 09:41 | MM_ITS ---
WS: [id number] ADDITIONAL VIEWS LEFT MAMMOGRAM WITH DIGITAL BREAST TOMOSYNTHESIS. HISTORY: ABNORMAL MAMMOGRAM COMPARISON: 11/29/2023 Spot compression views LEFT breast in CC, MLO projections and true ML submitted with digital breast t omosynthesis and SM. Breast composition: The breasts are heterogeneously dense, which may obscure small masses. The asymmetry noted on the CC projection only in the mid LEFT breast resolves with additional imaging . Consistent with superimposed fibroglandular tissues. There was no corresponding finding on the late ral projection. MM/MM diag LT tomosynthesis [id number] IMPRESSION: BI-RADS: 2 - Benign FOLLOW UP: 1 Year Follow-up Recommend return to annual screening mammography. The asymmetry seen on the scr eening mammogram completely resolves with additional imaging.
== END 2024-01-21 09:37 | disposition home or self-care (01) ==
LOC: RAD 09:37
PROVIDERS: PCP Family Medicine; Visit Provider Family Medicine
DX: R92.8 Other abnormal and inconclusive findings on diagnostic imaging of breast (principal); R92.333 Mammographic heterogeneous density, bilateral breasts
CPT/HCPCS: 77061; G0279

== ENCOUNTER → 2025-01-28 12:12 | Outpatient (BNVA) | payer MEDICARE, SELFPAY | PROVIDERS: PCP Family Medicine; Visit Provider Specialist | DX: G40.309 Generalized idiopathic epilepsy and epileptic syndromes, not intractable, without status epilepticus (principal); R29.90 Unspecified symptoms and signs involving the nervous system; G43.711 Chronic migraine without aura, intractable, with status migrainosus | CPT/HCPCS: 99214 ==

== ENCOUNTER 2025-03-04 13:46 | Outpatient (CLI) | payer MEDICARE, SELFPAY ==
--- NOTE | 2025-03-04 13:52 | MM_ITS ---
WS: [id number] BILATERAL 3D TOMOSYNTHESIS DIGITAL SCREENING MAMMOGRAPHY WITH CAD CLINICAL INFORMATION: SCREENING HISTORY: Screening mammogram. No current complaints. COMPARISON: 2023 TECHNIQUE: Bilateral CC and MLO views. FINDINGS: The breasts are composed of heterogeneous fibroglandular density tissue, which can limit the detection of small underlying mass lesions. No suspicious mass, asymmetry, calcifications, or architectural distortion. No evidence of malignancy. MM/MM scr tomosynthesis [id number] IMPRESSION: DENSITY: The breasts are heterogeneously dense, which may obscure small masses. BI-RADS: 1 - Negative FOLLOW UP: 1 Year Follow-up Recommend return to annual screening mammography.
== END 2025-03-04 13:47 | disposition home or self-care (01) ==
LOC: RAD 13:48
PROVIDERS: PCP Family Medicine; Visit Provider Family Medicine
DX: Z12.31 Encounter for screening mammogram for malignant neoplasm of breast (principal); R92.323 Mammographic fibroglandular density, bilateral breasts; R92.333 Mammographic heterogeneous density, bilateral breasts
CPT/HCPCS: 77063; 77067

== ENCOUNTER 2025-03-09 13:27 | Outpatient (CLI) | payer MEDICARE, SELFPAY ==
--- NOTE | 2025-03-09 13:35 | CT_ITS ---
WS: [id number] LDCT LUNG CANCER SCREENING HISTORY: NICOTINE DEPENDENCE,CIGARETTES TECHNIQUE: Axial imaging performed from the apices to 1 cm below the costophrenic angles. Coronal and sagittal reformats are submitted with axial MIP series. All CT scans at [facility] use at least one of these dose optimization techniques: automated exposure control; mA and/or kV adjustment per patient size (includes targeted exams where dose is matched to clinical indication); or iterative reconstruction. DLP: 46.93 mGy.cm DIvol: Mean CTDIvol: 0.70 (mGy) COMPARISON: 11/26/2023 Diagnostic quality: Satisfactory Lungs: Severe pulmonary hyperexpansion with centrilobular emphysema. Mild biapical pleural thickening and scarring. Thin bandlike areas of atelectasis and scar in the upper lung walsh and at the lung bases. No mass or nodule identified. Heart: Normal size heart with no pericardial effusion.. Other findings: Mild atherosclerosis aorta. Pulmonary arteries mildly dilated. No pericardial or pleural effusions. No adrenal mass. Prior cholecystectomy. Mild stable anterior wedging of T10. Please note this mild anterior fracture was described at T12 on the prior study of 11/26/2023. Correct level is T10. CT/CT lung screening [id number] IMPRESSION: LUNG-RADS: 1-Negative FOLLOW UP: 12 Month: Continue annual screening with LDCT OTHER FINDINGS (S MODIFIER): None.
== END 2025-03-09 13:28 | disposition home or self-care (01) ==
LOC: RAD 13:27
PROVIDERS: PCP Family Medicine; Visit Provider Family Medicine
DX: Z12.2 Encounter for screening for malignant neoplasm of respiratory organs (principal); F17.210 Nicotine dependence, cigarettes, uncomplicated; I70.0 Atherosclerosis of aorta; Z90.49 Acquired absence of other specified parts of digestive tract; I28.8 Other diseases of pulmonary vessels; S22.070A Wedge compression fracture of T9-T10 vertebra, initial encounter for closed fracture; X58.XXXA Exposure to other specified factors, initial encounter
CPT/HCPCS: 71271

== ENCOUNTER → 2025-03-12 11:23 | Outpatient (BNVA) | payer MEDICARE, SELFPAY | PROVIDERS: PCP Family Medicine; Visit Provider Specialist | DX: G43.711 Chronic migraine without aura, intractable, with status migrainosus (principal) | CPT/HCPCS: 64615; J0585; J9999 ==